=== PATIENT | female | born 1940 | race Caucasian/White ===

== ENCOUNTER 2017-02-26 22:12 | Inpatient (IN) | payer MEDICARE, BC ==
[~2017-02-26] VITALS: Ht 177.8 cm; Wt 110.9 kg
[~2017-02-26 22:12] MED LIST: BROV15NE NEB; BUDE0.25 NEB; CALC1TAB12 PO; CYAN1TAB24 PO; GABA300C5 PO; ONCETAB7 PO; SIMV80TA PO; TYLETAB34 PO; XARE20TA PO
[2017-02-27] VITALS (8 sets, daily range): BP systolic 96–152; BP diastolic 66–94; PULSE 93–121; RESP 18–22; TEMP 96.1–101.3; O2SAT 93–97
[2017-02-27] MEDS ORDERED: BISACODYL 10 MG SUPP RECTAL PRN (01:15)
[2017-02-27] MEDS ORDERED: MAGNESIUM HYDROXIDE SUSP 30 ML CUP PO PRN (01:15)
[2017-02-27] MEDS ORDERED: NALOXONE HCL 0.4 MG/ML AMP IV PRN (01:15)
[2017-02-27] MEDS ORDERED: ONDANSETRON HCL 4 MG/2 ML VIAL IVP PRN (01:15)
[2017-02-27] MEDS ORDERED: SENNOSIDES 8.6 MG TAB PO PRN (01:15)
[2017-02-27] MEDS ORDERED: SODIUM CHLORIDE 0.9% FLUSH 10 ML FLUSH IV FLUSH PRN (01:15)
[2017-02-27] MEDS ORDERED: RESP: ALBUTEROL 2.5 MG/IPRATROPIUM 0.5 MG NEB (PRN) NEB (01:45)
[2017-02-27] MEDS: ACETAMINOPHEN 325 MG TAB PO PRN ×2 (03:27→16:59)
[2017-02-27 07:23] LABS: AUTOMATED NEUTROPHIL # 5.6 TH/MM3 (1.8-7.7); BASOPHIL % 0.3 % (0.0-2.0); EOSINOPHIL # 0.1 TH/MM3 (0-0.4); EOSINOPHIL % 1.5 % (0.0-4.0); HEMATOCRIT 34.1 % (35.0-46.0); HEMO FLAGS DIFF FINAL; LYMPHOCYTE # 0.7 TH/MM3 (1.0-4.8); MEAN CORPUSCULAR HEMOGLOBIN 30.4 PG (27.0-34.0); MEAN CORPUSCULAR HGB CONC 34.9 % (32.0-36.0); MONO % 3.4 % (0.0-8.0); NEUT % 84.8 % (16.0-70.0); PLATELET COUNT 155 TH/MM3 (150-450); RED BLOOD COUNT 3.91 MIL/MM3 (4.00-5.30); RED CELL DISTRIBUTION WIDTH 15.2 % (11.6-17.2); WHITE BLOOD COUNT 6.6 TH/MM3 (4.0-11.0)
[2017-02-27 07:33] LABS: POTASSIUM 3.8 MEQ/L (3.5-5.1)
[2017-02-27 07:37] LABS: BICARBONATE 23.1 MEQ/L (21.0-32.0)
[2017-02-27] MEDS ORDERED: ACETAMINOPHEN/CODEINE 300 MG/30 MG TAB PO PRN (08:00)
--- NOTE | 2017-02-27 08:18 | HHI.HP ---
[facility] Primary [facility] Physician No Primary Care Physician Admission Diagnosis Generalized weakness Diagnoses: (1) Dehydration (2) COPD (chronic obstructive pulmonary disease) (3) Generalized weakness (4) Hyperlipidemia (5) Acute kidney injury (6) Fever Chief Complaint: Weakness Travel History International Travel<30 Days: No Contact w/Intl Traveler <30 Da: No History of Present Illness The patient is a 76-year-old female who presented to the emergency department with complaint of generalized weakness. She states that she went to the bathroom yesterday, but was not able to get up off the toilet because she felt so weak. Her [id number] helped her up and called paramedics. The patient has COPD and reports chronic dyspnea, but no worse recently. She has cough that is minimally productive. She had fever overnight with night sweats, but feels much better this morning. She denies chest pain. She had an episode of nausea yesterday, but that has resolved. No diarrhea or constipation. She denies dysuria. She reportedly has had multiple hospital admissions and ER visits in the past few months. She reports having extensive workup in December including a brain biopsy. Those records are not available at this time. Review of Systems Constitutional: DENIES: Fever, Chills, Night Sweats Eyes: DENIES: Blurred vision, Vision loss Ears, nose, mouth, throat: DENIES: Hearing loss Respiratory: COMPLAINS OF: Cough, Sputum production, Shortness of breath, DENIES: Wheezing Cardiovascular: DENIES: Chest pain, Palpitations, Dyspnea on Exertion, Lower Extremity Edema Gastrointestinal: DENIES: Abdominal pain, Constipation, Diarrhea, Nausea, Vomiting Genitourinary: DENIES: Urinary frequency, Urinary incontinence, Urgency, Hematuria, Dysuria, Nocturia Musculoskeletal: DENIES: Joint pain, Muscle aches Integumentary: DENIES: Pruritus, Rash Hematologic/lymphatic: DENIES: Bruising Neurologic: DENIES: Headache Past Family Social History Past Medical History History breast cancer History of renal cancer History of lung cancer Hyperlipidemia COPD History of DVT, ?PE Past Surgical History Partial lobectomy of the left lung Right nephrectomy Hysterectomy Appendectomy Tonsillectomy Bilateral breast surgery for cancer in the 1970s Reported Medications Xarelto 20 mg daily Gabapentin 300 mg twice a day Brovana twice a day Budesonide nebulizer twice a day Simvastatin 80 mg daily Multivitamin daily Tylenol with codeine daily as needed Calcium plus vitamin D daily Vitamin B12 daily Allergies: Coded Allergies: Penicillin (Verified Allergy, Severe, Hives, 02/26/17) Family History Breast cancer Heart disease Social History Patient quit smoking 6 years ago. Rarely drinks alcohol. Denies illicit drug use. Physical Exam Vital Signs Vital Signs Date Time Temp Pulse Resp B/P Pulse Ox O2 Delivery O2 Flow Rate FiO2 02/27/17 04:21 101.3 93 18 126/74 94 02/27/17 02:52 Nasal Cannula 3.00 02/27/17 01:00 99.0 18 122/77 94 Physical Exam GENERAL: Obese elderly female in no acute distress. Sitting up in a chair. HEENT: Normocephalic, atraumatic. Pupils equal, round and reactive. Extraocular movements intact. No scleral icterus. No injection or drainage. Oropharynx is clear. Mucous membranes are moist. CARDIOVASCULAR: Regular rate and rhythm without murmurs, gallops, or rubs. RESPIRATORY: Scattered wheeze. Breathing is non-labored. GASTROINTESTINAL: Abdomen soft, non-tender, nondistended. EXTREMITIES: Trace bilateral lower extremity edema. No calf tenderness. PSYCH: Alert and oriented x 3. Laboratory Laboratory Tests Test 02/27/17 07:11 White Blood Count 6.6 Red Blood Count 3.91 Hemoglobin 11.9 Hematocrit 34.1 Mean Corpuscular Volume 87.0 Mean Corpuscular Hemoglobin 30.4 Mean Corpuscular Hemoglobin 34.9 Concent Red Cell Distribution Width 15.2 Platelet Count 155 Mean Platelet Volume 6.2 Neutrophils (%) (Auto) 84.8 Lymphocytes (%) (Auto) 10.0 Monocytes (%) (Auto) 3.4 Eosinophils (%) (Auto) 1.5 Basophils (%) (Auto) 0.3 Neutrophils # (Auto) 5.6 Lymphocytes # (Auto) 0.7 Monocytes # (Auto) 0.2 Eosinophils # (Auto) 0.1 Basophils # (Auto) 0.0 CBC Comment DIFF FINAL Differential Comment Sodium Level 142 Potassium Level 3.8 Chloride Level 109 Carbon Dioxide Level 23.1 Anion Gap 10 Blood Urea Nitrogen 17 Creatinine 1.10 Estimat Glomerular Filtration 48 Rate Random Glucose 86 Calcium Level 8.4 Result Diagram: 02/27/17 0711 02/27/17 0711 Assessment and Plan Assessment and Plan 1. Generalized weakness: The patient states that she has become more weak over the past few days, but feels better this morning. PT eval requested. 2. Fever: Uncertain etiology. ?UTI. Urine culture is pending. Patient is afebrile at this time. CXR without apparent pneumonia. 3. Hyperlipidemia: Continue statin. 4. COPD: Not currently in exacerbation. Continue supplemental oxygen. Continue home medications. Albuterol nebs as needed. 5. History of DVT: Continue Xarelto. 6. Acute kidney injury: Secondary to dehydration. Improving. Continue IV fluids. To Mckinney MD Feb 27, 2017 08:17
[2017-02-27] MEDS ORDERED: ARFORMOTEROL INH SCH (09:00)
[2017-02-27] MEDS: CYANOCOBALAMIN 1,000 MCG TAB PO SCH (09:00)
[2017-02-27] MEDS ORDERED: RESP: ALBUTEROL 2.5 MG/3 ML NEB (PRN) NEB (09:00)
[2017-02-27] MEDS: RESP: BUDESONIDE 0.25 MG/2 ML NEB NEB SCH ×2 (09:19→19:22)
[2017-02-27] MEDS: DOCUSATE SODIUM 50 MG/SENNA 8.6 MG TAB PO SCH ×2 (09:48→20:41)
[2017-02-27] MEDS: PRAVASTATIN SOD 80 MG TAB PO SCH (09:48)
[2017-02-27] MEDS: GABAPENTIN 300 MG CAP PO SCH ×2 (09:48→20:42)
[2017-02-27] MEDS: MULTIVITAMIN TAB PO SCH (09:49)
[2017-02-27] MEDS: CALCIUM/VITAMIN D 250 MG/125 U TAB PO SCH (09:49)
[2017-02-27] MEDS: NS + KCL 20 MEQ INJ 1,000 ML IV SCH (09:49)
[2017-02-27] MEDS: RIVAROXABAN 20 MG TAB PO SCH (09:49)
[2017-02-27] MEDS: SODIUM CHLORIDE 0.9% FLUSH 10 ML FLUSH IV FLUSH SCH ×2 (09:49→21:00)
[2017-02-27] MEDS: RESP: ALBUTEROL 2.5 MG/IPRATROPIUM 0.5 MG NEB (SCH) NEB ×2 (12:34→19:22)
[2017-02-27] MEDS ORDERED: SODIUM CHLOR 0.9% 1000 ML INJ 1,000 ML IV ONE (20:15)
[2017-02-27] MEDS: CIPROFLOXACIN 400 MG PREMIX 200 ML IV SCH (21:00)
[2017-02-27 21:08] LABS: LACTIC ACID GHOST NOT REPORTABLE
[2017-02-28] VITALS (16 sets, daily range): BP systolic 90–146; BP diastolic 52–89; PULSE 99–116; RESP 17–22; TEMP 97.3–102.3; O2SAT 91–98
[2017-02-28] MEDS: ACETAMINOPHEN 325 MG TAB PO PRN ×2 (02:12→23:27)
[2017-02-28] MEDS: NS + KCL 20 MEQ INJ 1,000 ML IV SCH ×2 (05:00→20:06)
[2017-02-28] MEDS: RESP: ALBUTEROL 2.5 MG/IPRATROPIUM 0.5 MG NEB (SCH) NEB ×4 (07:28→19:57)
[2017-02-28] MEDS: RESP: BUDESONIDE 0.25 MG/2 ML NEB NEB SCH ×2 (07:35→19:57)
[2017-02-28] MEDS: CYANOCOBALAMIN 1,000 MCG TAB PO SCH (09:00)
[2017-02-28] MEDS: DOCUSATE SODIUM 50 MG/SENNA 8.6 MG TAB PO SCH ×2 (09:00→20:07)
[2017-02-28] MEDS: PRAVASTATIN SOD 80 MG TAB PO SCH (09:48)
[2017-02-28] MEDS: GABAPENTIN 300 MG CAP PO SCH ×2 (09:48→20:07)
[2017-02-28] MEDS: MULTIVITAMIN TAB PO SCH (09:48)
[2017-02-28] MEDS: SODIUM CHLORIDE 0.9% FLUSH 10 ML FLUSH IV FLUSH SCH ×2 (09:48→20:07)
[2017-02-28] MEDS: CALCIUM/VITAMIN D 250 MG/125 U TAB PO SCH (09:48)
[2017-02-28] MEDS: RIVAROXABAN 20 MG TAB PO SCH (09:48)
[2017-02-28] MEDS: CIPROFLOXACIN 400 MG PREMIX 200 ML IV SCH ×2 (09:48→20:47)
--- NOTE | 2017-02-28 10:11 | HHI.PR ---
Subjective Remarks Follow up fever, weakness. Patient states that she feels lousy today. She has been having fever and chills overnight. She woke up "drenched in sweat" this morning. Denies chest pain, dyspnea. Objective Vitals Vital Signs Date Time Temp Pulse Resp B/P Pulse Ox O2 Delivery O2 Flow Rate FiO2 02/28/17 08:00 97.3 109 20 125/87 96 02/28/17 07:40 93 3.00 02/28/17 04:00 98.7 99 18 95/63 93 02/28/17 02:35 110 02/28/17 00:00 99.6 100 18 146/89 95 02/27/17 20:00 97.2 115 18 105/69 94 02/27/17 19:22 93 Nasal Cannula 3.00 02/27/17 18:12 18 02/27/17 16:00 101.2 121 22 111/66 94 02/27/17 12:00 96.1 107 22 152/94 97 I/O 02/27/17 02/27/17 02/27/17 02/28/17 02/28/17 02/28/17 07:00 15:00 23:00 07:00 15:00 23:00 Intake Total 0 ml 750 ml 842 ml 1250 ml Balance 0 ml 750 ml 842 ml 1250 ml Intake Oral 750 ml 240 ml 0 ml IV Total 0 ml 602 ml 1250 ml # Voids 2 4 2 2 1 # Bowel Movements 0 Result Diagram: 02/27/17 0711 02/27/17 0711 Objective Remarks General: Elderly female in no acute distress. Sitting up in a chair. Heart: Tachycardic. Lungs: Scattered wheeze. Breathing is nonlabored. Abdomen: Soft, nontender, nondistended. Extremities: Trace bilateral lower extremity edema. Psych: Alert and oriented. Procedures None Urinary Catheter: No Vascular Central Line Catheter: No A/P Problem List: (1) Dehydration ICD Code: E86.0 Status: Acute (2) COPD (chronic obstructive pulmonary disease) ICD Code: J44.9 Status: Chronic (3) Generalized weakness ICD Code: R53.1 Status: Acute (4) Hyperlipidemia ICD Code: E78.5 Status: Chronic (5) Acute kidney injury ICD Code: N17.9 Status: Acute (6) Fever ICD Code: R50.9 Status: Acute (7) Sepsis ICD Code: A41.9 Status: Acute (8) Lactic acidosis ICD Code: E87.2 Status: Acute Assessment and Plan 1. Generalized weakness: The patient states that she has become more weak over the past few days, but feels better this morning. Continue PT. 2. Sepsis: Source suspected to be UTI vs pulmonary. Urine culture is pending. Patient was febrile overnight and continues to have chills. Check chest CT. Continue antibiotics. Blood cultures are pending. Influenza negative. 3. Hyperlipidemia: Continue statin. 4. COPD: Not currently in exacerbation. Continue supplemental oxygen. Continue home medications. Albuterol nebs as needed. 5. History of DVT: Continue Xarelto. 6. Acute kidney injury: Secondary to dehydration. Labs are pending today. Continue IV fluids. 7. Tachycardia: Patient is consistently with heart rate in 120s. No reported history of cardiac issues, arrhythmia. Check EKG. To Mckinney MD Feb 28, 2017 10:11
[2017-02-28 11:26] LABS: AUTOMATED NEUTROPHIL # 4.5 TH/MM3 (1.8-7.7); BASOPHIL % 0.4 % (0.0-2.0); HEMATOCRIT 30.1 % (35.0-46.0); HEMO FLAGS DIFF FINAL; LYMPH % 6.6 % (9.0-44.0); LYMPHOCYTE # 0.3 TH/MM3 (1.0-4.8); MEAN CELL VOLUME 86.1 FL (80.0-100.0); MEAN CORPUSCULAR HEMOGLOBIN 29.1 PG (27.0-34.0); MEAN CORPUSCULAR HGB CONC 33.8 % (32.0-36.0); PLATELET COUNT 164 TH/MM3 (150-450); RED BLOOD COUNT 3.49 MIL/MM3 (4.00-5.30); RED CELL DISTRIBUTION WIDTH 14.9 % (11.6-17.2); WHITE BLOOD COUNT 4.9 TH/MM3 (4.0-11.0)
[2017-02-28 11:34] LABS: CHLORIDE 108 MEQ/L (98-107); POTASSIUM 3.8 MEQ/L (3.5-5.1); SODIUM (NA) 142 MEQ/L (136-145)
[2017-02-28 11:38] LABS: ANION GAP 12 MEQ/L (5-15); BICARBONATE 22.1 MEQ/L (21.0-32.0); BLOOD UREA NITROGEN 14 MG/DL (7-18); MAGNESIUM 1.9 MG/DL (1.5-2.5)
[2017-02-28 11:41] LABS: ALT (GPT) 21 U/L (10-53); AST (GOT) 21 U/L (15-37); GLOMERULAR FILTRATION RATE 48 ML/MIN (>89)
[2017-02-28 11:43] LABS: TOTAL BILIRUBIN ADULT 0.5 MG/DL (0.2-1.0)
[2017-02-28 11:44] LABS: ALKALINE PHOSPHATASE 50 U/L (45-117)
[2017-02-28 12:08] LABS: CREATINE KINASE 147 U/L (26-192)
[2017-02-28] MEDS ORDERED: CHLORHEXIDINE GLUCONATE 2 % 1 PACK (2 CLOTHS)(extra cloths) TOPICAL PRN (12:15)
[2017-02-28 12:26] LABS: CKMB 0.6 NG/ML (0.5-3.6)
--- NOTE | 2017-02-28 15:37 | PD.CONS ---
HPI Consult Requested By Primary Care Physician No Primary Care Physician History of Present Illness 76 y/o F with PMHx significant for COPD, HLD, breast CA, Lung CA who presented to the emergency department with generalized weakness and fever. She states that she went to the bathroom yesterday, but was not able to get up off the toilet because she felt so weak. She denies chest pain, diarrhea, constipation, dysuria or noncompliance with medications. Cardiology consulted for sinus tachycardia and abnormal EKG. Review of Systems Consitutional: COMPLAINS OF: Fatigue, Fever, DENIES: Chills, Weight gain, Weight loss Eyes: DENIES: Amaurosis Fugax, Change in vision HEENT: DENIES: Lightheadedness, Change in hearing Respiratory: DENIES: See HPI, Cough, Snoring, Shortness of breath, Wheezing, Sputum production Cardiovascular: DENIES: See HPI, Chest pain, Palpitations, Syncope, Tachycardia Gastrointestinal: DENIES: Nausea, Vomiting, Change in bowel habits, Reflux, Bloody stools, Melena Genitourinary: DENIES: Urinary incontinence, Difficulty voiding Neurologic: DENIES: Tingling or numbness, Memory problems, Poor Balance, Stroke symptoms Musculoskeletal: DENIES: Joint pain, Muscle pain, Limited range of motion, Back pain Psychiatric: DENIES: Anxiety, Depression, Sleep disturbances Hematologic: DENIES: Bruising tendencies, Bleeding tendencies Endocrine: DENIES: Weight gain, Weight loss, Thyroid disease Past Family Social History Allergies: Coded Allergies: Penicillin (Verified Allergy, Severe, Hives, 02/26/17) Past Medical History breast cancer renal cancer lung cancer Hyperlipidemia COPD History of DVT, ?PE Past Surgical History Partial lobectomy of the left lung Right nephrectomy Hysterectomy Appendectomy Tonsillectomy Bilateral breast surgery for cancer in the 1970s Reported Medications Reported Meds & Active Scripts Active Reported B12 (Cyanocobalamin) 1,000 Mcg Tab 1 Tab PO DAILY Calcium 500 +D (Calcium Carbonate-Cholecalciferol) 500-400 Mg-Unit Tab 1 Tab PO DAILY Once Daily (Multivitamin) 1 Each Tablet 1 Tab PO DAILY Tylenol-Codeine #3 (Acetaminophen-Codeine) 300-30 mg Tab 1 Tab PO DAILY PRN Budesonide Neb 0.25 Mg/2 Ml Neb 0.25 Mg NEB Q12HR NEB Brovana Neb (Arformoterol Neb) 15 Mcg/2 Ml Vial 1 Nebule NEB BID Maintenance treatment of bronchoconstriction in COPD. Xarelto (Rivaroxaban) 20 Mg Tab 20 Mg PO DAILY Gabapentin 300 Mg Cap 300 Mg PO BID Simvastatin 80 Mg Tab 80 Mg PO DAILY Active Ordered Medications Current Medications Medications (Trade) Dose Ordered Sig/Carlota Route Start Time Stop Time Status Last Admin (NS Flush) 2 ml UNSCH PRN IV FLUSH 02/27/17 01:15 (NS Flush) 2 ml BID IV FLUSH 02/27/17 09:00 02/28/17 09:48 (Tylenol) 650 mg Q4H PRN PO 02/27/17 01:15 02/28/17 02:12 (Zofran Inj) 4 mg Q6H PRN IVP 02/27/17 01:15 (Narcan Inj) 0.4 mg UNSCH PRN IV 02/27/17 01:15 (Gretel-Colace) 1 tab BID PO 02/27/17 09:00 02/27/17 20:41 (Milk Of Magnesia Liq) 30 ml Q12H PRN PO 02/27/17 01:15 (Senokot) 17.2 mg Q12H PRN PO 02/27/17 01:15 (Dulcolax Supp) 10 mg DAILY PRN RECTAL 02/27/17 01:15 (Tylenol-Codeine #3) 1 tab DAILY PRN PO 02/27/17 08:00 (Neurontin) 300 mg BID PO 02/27/17 09:00 02/28/17 09:48 (Xarelto) 20 mg DAILY PO 02/27/17 09:00 02/28/17 09:48 Patient Own Medication ARFORMOTEROL (BROVANA) 1 INH BID BID INH 02/27/17 09:00 Hold (Oscal-D 250-125) 500 mg DAILY PO 02/27/17 09:00 02/28/17 09:48 (Vitamin B12) 1,000 mcg DAILY PO 02/27/17 09:00 02/27/17 09:00 (Theragran) 1 tab DAILY PO 02/27/17 09:00 02/28/17 09:48 Pravastatin Sodium 80 mg 80 mg DAILY PO 02/27/17 09:00 02/28/17 09:48 Potassium Chloride/Sodium Chloride 1,000 ml @ 50 mls/hr Q20H IV 02/27/17 09:00 02/28/17 05:00 (Cipro 400 Mg Premix) 200 ml @ 200 mls/hr Q12H IV 02/27/17 21:00 02/28/17 09:48 Miscellaneous Information Patient in critical care unit? Ass... Q361D .XX 02/28/17 12:15 02/28/17 13:00 (Chlorhexidine 2% Cloth) 3 pack DAILY@04 TOPICAL 03/01/17 04:00 03/05/17 04:01 (Chlorhexidine 2% Cloth) 3 pack UNSCH PRN TOPICAL 02/28/17 12:15 03/05/17 12:01 Physical Exam Vital Signs Vital Signs Date Time Temp Pulse Resp B/P Pulse Ox O2 Delivery O2 Flow Rate FiO2 02/28/17 12:00 101.5 116 17 134/78 95 02/28/17 08:00 97.3 109 20 125/87 96 02/28/17 07:40 93 3.00 02/28/17 04:00 98.7 99 18 95/63 93 02/28/17 02:35 110 02/28/17 00:00 99.6 100 18 146/89 95 02/27/17 20:00 97.2 115 18 105/69 94 02/27/17 19:22 93 Nasal Cannula 3.00 02/27/17 18:12 18 02/27/17 16:00 101.2 121 22 111/66 94 Laboratory Laboratory Tests Test 02/27/17 02/27/17 02/28/17 19:05 21:25 11:10 Lactic Acid Level 4.1 1.7 White Blood Count 4.9 Red Blood Count 3.49 Hemoglobin 10.2 Hematocrit 30.1 Mean Corpuscular Volume 86.1 Mean Corpuscular Hemoglobin 29.1 Mean Corpuscular Hemoglobin 33.8 Concent Red Cell Distribution Width 14.9 Platelet Count 164 Mean Platelet Volume 6.8 Neutrophils (%) (Auto) 90.0 Lymphocytes (%) (Auto) 6.6 Monocytes (%) (Auto) 2.0 Eosinophils (%) (Auto) 1.0 Basophils (%) (Auto) 0.4 Neutrophils # (Auto) 4.5 Lymphocytes # (Auto) 0.3 Monocytes # (Auto) 0.1 Eosinophils # (Auto) 0.0 Basophils # (Auto) 0.0 CBC Comment DIFF FINAL Differential Comment Sodium Level 142 Potassium Level 3.8 Chloride Level 108 Carbon Dioxide Level 22.1 Anion Gap 12 Blood Urea Nitrogen 14 Creatinine 1.10 Estimat Glomerular Filtration 48 Rate Random Glucose 142 Calcium Level 8.2 Magnesium Level 1.9 Total Bilirubin 0.5 Aspartate Amino Transf 21 (AST/SGOT) Alanine Aminotransferase 21 (ALT/SGPT) Alkaline Phosphatase 50 Total Creatine Kinase 147 Creatine Kinase MB 0.6 Troponin I LESS THAN 0.02 Total Protein 5.8 Albumin 2.0 Date/Time Procedure Status Source Growth 02/27/17 17:30 Aerobic Blood Culture - Preliminary Resulted Blood Peripheral NO GROWTH IN 1 DAY 02/27/17 17:30 Anaerobic Blood Culture - Preliminary Resulted Blood Peripheral NO GROWTH IN 1 DAY 02/27/17 10:00 Influenza Types A,B Antigen (АНДРЕЙ) - Final Complete Nasal Aspirate NEGATIVE FOR FLU A AND B ANTIGEN.... Result Diagram: 02/28/17 1110 02/28/17 1110 Assessment and Plan Problem List: (1) Abnormal EKG Assessment and Plan: 76 y/o F with admitted with failure to thrive, fever and tachycardia. No cardiovascular complaints. Sinus Tachycardia likely physiologic response to underlying infection or malignancy. Recommendations: 1. Get 2DEchocardiogram 2. Cont supportive care (2) Failure to thrive in adult (3) Fever (4) Generalized weakness (5) Acute kidney injury (6) COPD (chronic obstructive pulmonary disease) (7) Lactic acidosis (8) Hyperlipidemia Anibal Merrill MD Feb 28, 2017 15:37
[2017-02-28] MEDS ORDERED: VANCOMYCIN INJ 1,000 MG in SODIUM CHLOR 0.9% 250 ML INJ 250 ML IV SCH (15:45)
--- NOTE | 2017-02-28 15:48 | PD.CONS ---
History of Present Illness Service Infectious disease Consult Requested By Dr Mckinney Reason for Consult Sepsis Primary Care Physician No Primary Care Physician Diagnoses: (1) Sepsis (2) Fever History of Present Illness Patient came to the ER because she felt very weak and could not get off the toilet. She came to the ER earlier too and urine culture from that visit is growing bacteria. She had high garde fever with chills . Today she had to be transferred to the ICU because of the fever with chills and hypotension. She has baseline shortness of breath from COPD and also some dry cough. No abdominal pain, Review of Systems Constitutional: COMPLAINS OF: Fatigue, Fever, Chills Endocrine: DENIES: Polydipsia Eyes: DENIES: Diplopia, Vision loss Ears, nose, mouth, throat: DENIES: Nasal discharge, Oral lesions Respiratory: COMPLAINS OF: Shortness of breath, DENIES: Sputum production Cardiovascular: DENIES: Chest pain, Palpitations Gastrointestinal: DENIES: Abdominal pain, Vomiting Genitourinary: DENIES: Dysuria Musculoskeletal: COMPLAINS OF: Joint pain, DENIES: Stiffness Integumentary: DENIES: Abnormal pigmentation, Pruritus Neurologic: DENIES: Headache, Localized weakness Psychiatric: DENIES: Agitation Past Family Social History Allergies: Coded Allergies: Penicillin (Verified Allergy, Severe, Hives, 02/26/17) Past Medical History Past Medical History History breast cancer History of renal cancer History of lung cancer Hyperlipidemia COPD History of DVT, ?PE Past Surgical History Partial lobectomy of the left lung Right nephrectomy Hysterectomy Appendectomy Tonsillectomy Bilateral breast surgery for cancer in the 1970s Reported Medications Xarelto 20 mg daily Gabapentin 300 mg twice a day Brovana twice a day Budesonide nebulizer twice a day Simvastatin 80 mg daily Multivitamin daily Tylenol with codeine daily as needed Calcium plus vitamin D daily Vitamin B12 daily Allergies: Coded Allergies: Penicillin (Verified Allergy, Severe, Hives, 02/26/17) Family History Breast cancer Heart disease Social History Patient quit smoking 6 years ago. Rarely drinks alcohol. Denies illicit drug use. Physical Exam Vital Signs Vital Signs Date Time Temp Pulse Resp B/P Pulse Ox O2 Delivery O2 Flow Rate FiO2 02/28/17 12:00 101.5 116 17 134/78 95 02/28/17 08:00 97.3 109 20 125/87 96 02/28/17 07:40 93 3.00 02/28/17 04:00 98.7 99 18 95/63 93 02/28/17 02:35 110 02/28/17 00:00 99.6 100 18 146/89 95 02/27/17 20:00 97.2 115 18 105/69 94 02/27/17 19:22 93 Nasal Cannula 3.00 02/27/17 18:12 18 02/27/17 16:00 101.2 121 22 111/66 94 Physical Exam GENERAL: This is an obese patient who is febrile SKIN: No rashes, ecchymoses or lesions. Cool and dry. HEAD: Atraumatic. Normocephalic. No temporal or scalp tenderness. EYES: Pupils equal round and reactive. Extraocular motions intact. No scleral icterus. No injection or drainage. ENT: Nose without bleeding, purulent drainage or septal hematoma. Throat without erythema, tonsillar hypertrophy or exudate. Uvula midline. Airway patent. NECK: Trachea midline. No JVD or lymphadenopathy. Supple, nontender, no meningeal signs. CARDIOVASCULAR: Regular rate and rhythm without murmurs, gallops, or rubs. RESPIRATORY: Breath sounds equal bilaterally but diminished. No wheezes, rales, or rhonchi. GASTROINTESTINAL: Abdomen soft, non-tender, nondistended. No hepato-splenomegaly , or palpable masses. No guarding. MUSCULOSKELETAL: Extremities without clubbing, cyanosis, or edema. No joint tenderness, effusion, or edema noted. No calf tenderness. Negative Homans sign bilaterally. NEUROLOGICAL: Awake and alert. Cranial nerves II through XII intact. Motor and sensory grossly within normal limits. Five out of 5 muscle strength in all muscle groups. Normal speech. Laboratory Laboratory Tests Test 02/27/17 02/27/17 02/28/17 19:05 21:25 11:10 Lactic Acid Level 4.1 1.7 White Blood Count 4.9 Red Blood Count 3.49 Hemoglobin 10.2 Hematocrit 30.1 Mean Corpuscular Volume 86.1 Mean Corpuscular Hemoglobin 29.1 Mean Corpuscular Hemoglobin 33.8 Concent Red Cell Distribution Width 14.9 Platelet Count 164 Mean Platelet Volume 6.8 Neutrophils (%) (Auto) 90.0 Lymphocytes (%) (Auto) 6.6 Monocytes (%) (Auto) 2.0 Eosinophils (%) (Auto) 1.0 Basophils (%) (Auto) 0.4 Neutrophils # (Auto) 4.5 Lymphocytes # (Auto) 0.3 Monocytes # (Auto) 0.1 Eosinophils # (Auto) 0.0 Basophils # (Auto) 0.0 CBC Comment DIFF FINAL Differential Comment Sodium Level 142 Potassium Level 3.8 Chloride Level 108 Carbon Dioxide Level 22.1 Anion Gap 12 Blood Urea Nitrogen 14 Creatinine 1.10 Estimat Glomerular Filtration 48 Rate Random Glucose 142 Calcium Level 8.2 Magnesium Level 1.9 Total Bilirubin 0.5 Aspartate Amino Transf 21 (AST/SGOT) Alanine Aminotransferase 21 (ALT/SGPT) Alkaline Phosphatase 50 Total Creatine Kinase 147 Creatine Kinase MB 0.6 Troponin I LESS THAN 0.02 Total Protein 5.8 Albumin 2.0 Date/Time Procedure Status Source Growth 02/27/17 17:30 Aerobic Blood Culture - Preliminary Resulted Blood Peripheral NO GROWTH IN 1 DAY 02/27/17 17:30 Anaerobic Blood Culture - Preliminary Resulted Blood Peripheral NO GROWTH IN 1 DAY 02/27/17 10:00 Influenza Types A,B Antigen (АНДРЕЙ) - Final Complete Nasal Aspirate NEGATIVE FOR FLU A AND B ANTIGEN.... Result Diagram: 02/28/17 1110 02/28/17 1110 Assessment and Plan Problem List: (1) Sepsis Status: Acute Plan: Follow blood and urine culture Possible secondary to UTI Continue IV Cipro Add IV Vancomycin - pharmacy to dose Add Aztreonam 1 g IV q8hrs (2) Acute kidney injury Status: Acute Lluvia Sherwood MD Feb 28, 2017 15:48
[2017-02-28] MEDS ORDERED: IODIXANOL 320 MG/ML 10 ML VIAL (for Rad CT) IV ONE (16:26)
--- NOTE | 2017-02-28 16:30 | RADHPO ---
EXAM DATE/TIME: 02/28/2017 15:48 [facility] COMPARISON: CT ABDOMEN & PELVIS W/O CONTRAST, February 26, 2017, 17:45. INDICATIONS : Recent frontal biopsy. Altered mental status. RADIATION DOSE: 63.83 CTDIvol (mGy) MEDICAL HISTORY : Chronic obstructive pulmonary disease. Carcinoma, lung. Pulmonary embolism. Renal cancer. Anticoagula nt therapy. SURGICAL HISTORY : Mastectomy, bilateral. Right nephrectomy. Left lung lobectomy. Frontal head biopsy six weeks ago. ENCOUNTER: Initial ACUITY: 1 day PAIN SCALE: 0/10 LOCATION: cranial TECHNIQUE: Multiple contiguous axial images were obtained of the head. Using automated exposure control and adj ustment of the mA and/or kV according to patient size, radiation dose was kept as low as reasonably a chievable to obtain optimal diagnostic quality images. FINDINGS: CEREBRUM: The ventricles are normal for age. No evidence of midline shift, mass lesion, hemorrhage or acute in farction. No extra-axial fluid collections are seen. POSTERIOR FOSSA: The cerebellum and brainstem are intact. The 4th ventricle is midline. The cerebellopontine angle i s unremarkable. EXTRACRANIAL: The visualized portion of the orbits is intact. SKULL: There is a meghan hole in the left frontal region. No skull fracture is seen. CONCLUSION: 1. 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 No acute intracranial abnormalit y is identified. Cortes Lopez MD on February 28, 2017 at 16:27 Board Certified Radiologist. This report was verified electronically.
--- NOTE | 2017-02-28 16:36 | RADHPO ---
EXAM DATE/TIME: 02/28/2017 16:01 [facility] COMPARISON: CT BRAIN W/O CONTRAST, February 28, 2017, 15:48. INDICATIONS : Short of breath. Evaluate for embolism. IV CONTRAST: 50 cc Visipaque (iodixanol) IV RADIATION DOSE: 19.94 CTDIvol (mGy) MEDICAL HISTORY : Chronic obstructive pulmonary disease. Carcinoma, lung. Renal cancer. Anticoagulant therapy. Pulmonar y embolism. SURGICAL HISTORY : Mastectomy, bilateral. Left upper lung lobectomy. Right nephrectomy. ENCOUNTER: Initial ACUITY: 1 day PAIN SCALE: 0/10 LOCATION: chest TECHNIQUE: Volumetric scanning of the chest was performed using a pulmonary embolism protocol MIP images were re constructed. Using automated exposure control and adjustment of the mA and/or kV according to patien t size, radiation dose was kept as low as reasonably achievable to obtain optimal diagnostic quality images. FINDINGS: The examination of good diagnostic quality. No pulmonary embolus is identified. The heart is at the upper limits of normal in size. There is atherosclerotic plaquing and coronary ar teries. Note is made of a partially calcified 2.3 x 2.0 cm lymph node in the right superhilar region. No othe r adenopathy is seen. There is advanced interstitial fibrotic change throughout both lungs. There is advanced fibrotic castellanos ge in infiltrate throughout the right upper lobe. No significant pleural effusion is identified. The limited portions of upper abdomen visualized demonstrate a 2.6 cm cyst within the liver. CONCLUSION: 1. No pulmonary embolus identified. 2. 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 3. Diffuse interstitial fibrotic change with extensive opacification of the right upper lobe. Cortes Lopez MD on February 28, 2017 at 16:28 Board Certified Radiologist. This report was verified electronically.
[2017-02-28] MEDS ORDERED: Vancomycin Consult Pharmacy 1 EA OTHER SCH (17:00)
[2017-02-28] MEDS: AZTREONAM INJ 1,000 MG in SODIUM CHLORIDE 0.9% INJ 100 ML IV SCH ×2 (18:07→23:25)
[2017-02-28] MEDS: VANCOMYCIN INJ 1,400 MG in SODIUM CHLORID 0.9% 500 ML INJ 500 ML IV SCH (18:26)
[2017-02-28 18:30] LABS: GLUCOSE,URINE NEG (NEG); KETONE, URINE NEG (NEG); NITRITE,URINE NEG (NEG); PH, URINE 5.5 (5.0-8.5)
[2017-02-28 18:31] LABS: BLOOD, URINE MOD (NEG)
[2017-02-28 18:32] LABS: URINE COLOR YELLOW (YELLW/STRAW)
[2017-02-28 18:35] LABS: RBC, URINE 0-3 /hpf (0-3)
[2017-02-28 18:36] LABS: BACTERIA, URINE MANY /hpf; COMMENT (UR) CULTURE INDICATED; CULTURE IF INDICATED CULTURE INDICATED; SQUAMOUS EPITHELIAL CELL URINE 0-5 /hpf (0-5)
[2017-03-01] VITALS (31 sets, daily range): BP systolic 81–148; BP diastolic 44–88; PULSE 86–134; RESP 14–36; TEMP 97.7–103; O2SAT 87–97
[2017-03-01] MEDS: CHLORHEXIDINE GLUCONATE 2 % 1 PACK (2 CLOTHS)(taper/protocol) TOPICAL SCH (04:00)
[2017-03-01] MEDS: ACETAMINOPHEN 325 MG TAB PO PRN ×3 (04:46→18:18)
[2017-03-01 05:12] LABS: AUTOMATED NEUTROPHIL # 3.6 TH/MM3 (1.8-7.7); BASOPHIL % 0.1 % (0.0-2.0); EOSINOPHIL % 1.2 % (0.0-4.0); LYMPH % 11.8 % (9.0-44.0); LYMPHOCYTE # 0.5 TH/MM3 (1.0-4.8); MEAN CORPUSCULAR HEMOGLOBIN 28.7 PG (27.0-34.0); NEUT % 83.9 % (16.0-70.0); PLATELET COUNT 180 TH/MM3 (150-450); RED BLOOD COUNT 3.33 MIL/MM3 (4.00-5.30); RED CELL DISTRIBUTION WIDTH 15.3 % (11.6-17.2); WHITE BLOOD COUNT 4.2 TH/MM3 (4.0-11.0)
[2017-03-01 05:39] LABS: POTASSIUM 3.8 MEQ/L (3.5-5.1)
[2017-03-01 05:42] LABS: BICARBONATE 23.4 MEQ/L (21.0-32.0)
[2017-03-01 05:43] LABS: HEMO FLAGS DIFF FINAL
[2017-03-01] MEDS: RESP: BUDESONIDE 0.25 MG/2 ML NEB NEB SCH ×2 (07:31→19:54)
[2017-03-01] MEDS: RESP: ALBUTEROL 2.5 MG/IPRATROPIUM 0.5 MG NEB (SCH) NEB ×4 (07:31→19:54)
[2017-03-01] MEDS: MULTIVITAMIN TAB PO SCH (08:11)
[2017-03-01] MEDS: CYANOCOBALAMIN 1,000 MCG TAB PO SCH (08:11)
[2017-03-01] MEDS: RIVAROXABAN 20 MG TAB PO SCH (08:11)
[2017-03-01] MEDS: CALCIUM/VITAMIN D 250 MG/125 U TAB PO SCH (08:11)
[2017-03-01] MEDS: GABAPENTIN 300 MG CAP PO SCH ×2 (08:11→20:54)
[2017-03-01] MEDS: AZTREONAM INJ 1,000 MG in SODIUM CHLORIDE 0.9% INJ 100 ML IV SCH ×2 (08:11→15:59)
[2017-03-01] MEDS: PRAVASTATIN SOD 80 MG TAB PO SCH (08:11)
[2017-03-01] MEDS: SODIUM CHLORIDE 0.9% FLUSH 10 ML FLUSH IV FLUSH SCH ×2 (08:12→20:55)
[2017-03-01] MEDS: DOCUSATE SODIUM 50 MG/SENNA 8.6 MG TAB PO SCH ×2 (09:00→20:55)
[2017-03-01] MEDS: CIPROFLOXACIN 400 MG PREMIX 200 ML IV SCH ×2 (09:11→20:55)
--- NOTE | 2017-03-01 12:37 | HHI.PR ---
Subjective Remarks Follow-up sepsis/UTI/tachycardia 03/01/17-patient seen and examined, continue to spike fevers and complains of chills however denies any chest pain. Objective Vitals Vital Signs Date Time Temp Pulse Resp B/P Pulse Ox O2 Delivery O2 Flow Rate FiO2 03/01/17 12:00 100.4 134 19 139/66 91 03/01/17 11:00 103.0 122 14 144/77 90 03/01/17 10:00 116 17 136/71 94 03/01/17 09:00 128 36 133/71 03/01/17 08:00 120 26 91/63 03/01/17 07:42 102 24 100/67 95 03/01/17 07:32 94 Nasal Cannula 4.00 03/01/17 07:00 98.2 90 14 89/61 95 03/01/17 07:00 90 03/01/17 06:00 86 16 81/56 94 03/01/17 05:00 88 16 102/77 95 03/01/17 04:00 90 14 101/56 94 03/01/17 03:00 98.4 92 19 85/53 92 03/01/17 02:00 96 18 84/52 92 03/01/17 01:00 104 22 90/50 93 03/01/17 00:10 101.4 118 25 87/52 93 02/28/17 23:32 110 02/28/17 23:19 102.3 110 21 102/57 92 02/28/17 23:02 110 22 90/52 91 02/28/17 22:00 110 19 96/56 93 02/28/17 21:00 112 19 97/54 93 02/28/17 20:00 100.1 114 20 131/72 92 02/28/17 19:57 94 Nasal Cannula 3.00 02/28/17 19:00 110 20 118/71 95 02/28/17 16:00 99.5 109 18 131/75 98 02/28/17 15:00 111 I/O 02/28/17 02/28/17 02/28/17 03/01/17 03/01/17 03/01/17 07:00 15:00 23:00 07:00 15:00 23:00 Intake Total 1250 ml 50 ml 2000 ml Output Total 1750 ml Balance 1250 ml 50 ml 250 ml Intake Oral 0 ml 0 ml 500 ml IV Total 1250 ml 50 ml 1500 ml Output Urine Total 1750 ml # Voids 2 4 # Bowel Movements 3 0 Result Diagram: 03/01/17 0447 03/01/17 0447 Imaging Last Impressions Head CT 02/28/17 0000 Signed Impressions: Service Date/Time: Tuesday, February 28, 2017 15:48 - CONCLUSION: 1. 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 No acute intracranial abnormality is identified. Cortes Lopez MD CT Angiography 02/28/17 0000 Signed Impressions: Service Date/Time: Tuesday, February 28, 2017 16:01 - CONCLUSION: 1. No pulmonary embolus identified. 2. 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 3. Diffuse interstitial fibrotic change with extensive opacification of the right upper lobe. Cortes Lopez MD Objective Remarks GENERAL: NAD SKIN: Warm and dry. HEAD: Normocephalic. EYES: No scleral icterus. No injection or drainage. NECK: Supple, trachea midline. No JVD or lymphadenopathy. CARDIOVASCULAR: Regular rate and rhythm without murmurs, gallops, or rubs. RESPIRATORY: Breath sounds equal bilaterally. No accessory muscle use. GASTROINTESTINAL: Abdomen soft, non-tender, nondistended. MUSCULOSKELETAL: No cyanosis, or edema. BACK: Nontender without obvious deformity. No CVA tenderness. Procedures None A/P Problem List: (1) Sepsis ICD Code: A41.9 Status: Acute (2) Dehydration ICD Code: E86.0 Status: Acute (3) COPD (chronic obstructive pulmonary disease) ICD Code: J44.9 Status: Chronic (4) Generalized weakness ICD Code: R53.1 Status: Acute (5) Hyperlipidemia ICD Code: E78.5 Status: Chronic (6) Acute kidney injury ICD Code: N17.9 Status: Acute (7) Fever ICD Code: R50.9 Status: Acute (8) Lactic acidosis ICD Code: E87.2 Status: Acute (9) UTI (urinary tract infection) ICD Code: N39.0 Status: Acute (10) Abnormal EKG ICD Code: R94.31 Status: Acute Assessment and Plan 76-year-old female with 1. Sepsis: Source suspected to be UTI vs pulmonary. Currently on Azactam, vancomycin and Cipro per infectious disease specialist pending blood and urine culture 2. UTI: Continue with above antibiotics pending urine culture 3. Febrile episode: Secondary to above infectious processes 4. Tachycardia: Secondary to abnormal EKG, cardiology was consulted. Likely secondary to above infectious processes CTA ruled out PE 5. Hyperlipidemia: Continue statin. 6. COPD: Not currently in exacerbation. Continue supplemental oxygen. Continue home medications. Albuterol nebs as needed. 7. History of DVT: Continue Xarelto. 8. Acute kidney injury: Secondary to dehydration. Continue IV fluids. Total critical care time spent 33 minutes David Casey MD Mar 01, 2017 12:37
[2017-03-01] MEDS: VANCOMYCIN INJ 1,400 MG in SODIUM CHLORID 0.9% 500 ML INJ 500 ML IV SCH (12:41)
--- NOTE | 2017-03-01 17:10 | EKG ---
Date Performed: 02/28/2017 Time Performed: 11:07:27 PTAGE: 76 years EKG: SINUS TACHYCARDIA INDETERMINATE AXIS RIGHT BUNDLE BRANCH BLOCK ABNORMAL ECG NO PREVIOUS TRACING DOCTOR: Bettye Benitez Interpretating Date/Time 03/01/2017 17:07:27
[2017-03-01] MEDS: NS + KCL 20 MEQ INJ 1,000 ML IV SCH (18:19)
[2017-03-01 22:11] LABS: BLOOD GAS BASE EXCESS -5.4 mmol/L (-2-2); BLOOD GAS CARBOXYHEMOGLOBIN 1.5 % (0-4); BLOOD GAS HCO3 18 mmol/L (22-26); BLOOD GAS METHEMOGLOBIN 0.7 % (0-2); BLOOD GAS O2 HGB SATURATION 91 % (90-100); BLOOD GAS OXYGEN CONTENT 12.3 Vol % (12.0-20.0); BLOOD GAS PCO2 25 mmHg (38-42); BLOOD GAS PO2 61 mmHg (61-120); BLOOD GAS TOTAL HGB 9.6 G/DL (12.0-16.0)
[2017-03-01 22:12] LABS: CRITICAL VALUE NO; DRAW SITE RT RADIAL; FIO2 50 %; NUMBER OF ARTERIAL PUNCTURES 1; OXYGEN DEVICE Venti Mask; STAT YES; ULNAR PULSE Y
[2017-03-01 22:13] LABS: AUTOMATED NEUTROPHIL # 4.8 TH/MM3 (1.8-7.7); BASOPHIL % 0.3 % (0.0-2.0); EOSINOPHIL % 0.3 % (0.0-4.0); HEMATOCRIT 24.2 % (35.0-46.0); HEMO FLAGS DIFF FINAL; LYMPH % 7.3 % (9.0-44.0); LYMPHOCYTE # 0.4 TH/MM3 (1.0-4.8); MEAN CELL VOLUME 86.6 FL (80.0-100.0); MEAN CORPUSCULAR HEMOGLOBIN 30.4 PG (27.0-34.0); MEAN CORPUSCULAR HGB CONC 35.2 % (32.0-36.0); MONO % 1.2 % (0.0-8.0); NEUT % 90.9 % (16.0-70.0); PLATELET COUNT 173 TH/MM3 (150-450); RED CELL DISTRIBUTION WIDTH 15.1 % (11.6-17.2); WHITE BLOOD COUNT 5.3 TH/MM3 (4.0-11.0)
[2017-03-01 22:30] LABS: CHLORIDE 108 MEQ/L (98-107); POTASSIUM 3.6 MEQ/L (3.5-5.1); SODIUM (NA) 140 MEQ/L (136-145)
[2017-03-01 22:34] LABS: ANION GAP 11 MEQ/L (5-15); BICARBONATE 20.6 MEQ/L (21.0-32.0); BLOOD UREA NITROGEN 15 MG/DL (7-18); MAGNESIUM 1.6 MG/DL (1.5-2.5)
[2017-03-01 22:37] LABS: ALT (GPT) 24 U/L (10-53); AST (GOT) 36 U/L (15-37); GLOMERULAR FILTRATION RATE 40 ML/MIN (>89)
[2017-03-01 22:39] LABS: TOTAL BILIRUBIN ADULT 0.3 MG/DL (0.2-1.0)
[2017-03-01 22:40] LABS: ALKALINE PHOSPHATASE 65 U/L (45-117)
--- NOTE | 2017-03-01 22:40 | RADHPO ---
EXAM DATE/TIME: 03/01/2017 21:58 [facility] COMPARISON: CHEST SINGLE AP, February 26, 2017, 17:48. CT PULMONARY ANGIOGRAM, February 28, 2017, 16:01. INDICATIONS : Short of breath. MEDICAL HISTORY : Chronic obstructive pulmonary disease. Carcinoma, lung. Renal cancer. SURGICAL HISTORY : Mastectomy, bilateral. Left upper lung lobectomy. ENCOUNTER: Initial ACUITY: 2 days PAIN SCORE: 0/10 LOCATION: Bilateral chest FINDINGS: Increased air space disease since February 26 bilaterally. Underlying interstitial lung disease as well. No significant effusion. No pneumothorax. Heart size within normal limits. No pneumothorax. CONCLUSION: 1. Increased airspace disease bilaterally since February 26. Differential diagnosis includes edema and in fection. There is also underlying interstitial lung disease and possibly pulmonary fibrosis. Aurelio Aceves MD on March 01, 2017 at 22:37 Board Certified Radiologist. This report was verified electronically.
[2017-03-01] MEDS ORDERED: FUROSEMIDE 20 MG/2 ML VIAL IV PUSH PRN (23:30)
[2017-03-02] VITALS (43 sets, daily range): BP systolic 75–145; BP diastolic 51–85; PULSE 102–134; RESP 12–30; TEMP 98–103; O2SAT 82–97
[2017-03-02] MEDS: AZTREONAM INJ 1,000 MG in SODIUM CHLORIDE 0.9% INJ 100 ML IV SCH ×4 (00:15→23:21)
[2017-03-02] MEDS: CHLORHEXIDINE GLUCONATE 2 % 1 PACK (2 CLOTHS)(taper/protocol) TOPICAL SCH ×2 (00:16→23:33)
[2017-03-02] MEDS: ACETAMINOPHEN 325 MG TAB PO PRN ×2 (01:48→23:19)
[2017-03-02 05:39] LABS: AUTOMATED NEUTROPHIL # 4.9 TH/MM3 (1.8-7.7); BASOPHIL % 0.2 % (0.0-2.0); EOSINOPHIL # 0.1 TH/MM3 (0-0.4); EOSINOPHIL % 1.2 % (0.0-4.0); HEMATOCRIT 29.5 % (35.0-46.0); LYMPH % 8.1 % (9.0-44.0); LYMPHOCYTE # 0.4 TH/MM3 (1.0-4.8); MEAN CORPUSCULAR HEMOGLOBIN 29.1 PG (27.0-34.0); MEAN CORPUSCULAR HGB CONC 33.1 % (32.0-36.0); MONO % 1.1 % (0.0-8.0); NEUT % 89.4 % (16.0-70.0); PLATELET COUNT 189 TH/MM3 (150-450); RED BLOOD COUNT 3.35 MIL/MM3 (4.00-5.30); RED CELL DISTRIBUTION WIDTH 15.1 % (11.6-17.2); WHITE BLOOD COUNT 5.5 TH/MM3 (4.0-11.0)
[2017-03-02 06:02] LABS: HEMO FLAGS DIFF FINAL
[2017-03-02 06:07] LABS: POTASSIUM 3.9 MEQ/L (3.5-5.1)
[2017-03-02 06:10] LABS: BICARBONATE 21.5 MEQ/L (21.0-32.0)
[2017-03-02] MEDS: VANCOMYCIN INJ 1,400 MG in SODIUM CHLORID 0.9% 500 ML INJ 500 ML IV SCH ×2 (06:28→23:33)
[2017-03-02] MEDS: RESP: ALBUTEROL 2.5 MG/IPRATROPIUM 0.5 MG NEB (SCH) NEB ×4 (07:26→19:48)
[2017-03-02] MEDS: RESP: BUDESONIDE 0.25 MG/2 ML NEB NEB SCH ×2 (07:26→19:48)
[2017-03-02] MEDS: CYANOCOBALAMIN 1,000 MCG TAB PO SCH (08:29)
[2017-03-02] MEDS: GABAPENTIN 300 MG CAP PO SCH ×2 (08:30→20:50)
[2017-03-02] MEDS: DOCUSATE SODIUM 50 MG/SENNA 8.6 MG TAB PO SCH ×2 (08:30→21:00)
[2017-03-02] MEDS: PRAVASTATIN SOD 80 MG TAB PO SCH (08:30)
[2017-03-02] MEDS: RIVAROXABAN 20 MG TAB PO SCH (08:30)
[2017-03-02] MEDS: CALCIUM/VITAMIN D 250 MG/125 U TAB PO SCH (08:30)
[2017-03-02] MEDS: MULTIVITAMIN TAB PO SCH (08:30)
[2017-03-02] MEDS: SODIUM CHLORIDE 0.9% FLUSH 10 ML FLUSH IV FLUSH SCH ×2 (08:45→21:21)
[2017-03-02] MEDS: CIPROFLOXACIN 400 MG PREMIX 200 ML IV SCH (08:46)
--- NOTE | 2017-03-02 10:06 | HHI.PR ---
Subjective Remarks Follow-up sepsis/UTI/tachycardia and now respiratory failure 03/01/17-patient seen and examined, continue to spike fevers and complains of chills however denies any chest pain. 03/02/17-patient seen and examined, currently on Ventimask and complaining of shortness of breath. Still Spiking fever overnight Objective Vitals Vital Signs Date Time Temp Pulse Resp B/P Pulse Ox O2 Delivery O2 Flow Rate FiO2 03/02/17 09:15 95 Partial Non-Rebreather 12.00 60 03/02/17 09:10 124 12 95 03/02/17 09:01 128 13 113/65 90 03/02/17 09:00 90 Venturi Mask 6.00 50 03/02/17 08:31 134 22 145/64 91 03/02/17 08:00 91 Nasal Cannula 6.00 Humidified 03/02/17 07:31 98.7 108 12 128/75 95 03/02/17 07:30 91 Venturi Mask 50 03/02/17 07:01 104 12 125/73 91 03/02/17 06:31 104 14 125/72 91 03/02/17 06:30 92 Venturi Mask 7.00 50 03/02/17 06:15 97 Partial Non-Rebreather 12.00 60 03/02/17 06:01 104 24 104/70 97 03/02/17 05:01 104 20 98/64 94 03/02/17 04:08 93 Partial Non-Rebreather 12.00 60 03/02/17 04:01 100.9 110 24 93/51 93 03/02/17 03:30 112 20 105/52 93 03/02/17 03:15 114 24 95/58 95 03/02/17 03:00 101.9 114 21 97/57 95 03/02/17 02:30 102.4 120 22 104/57 94 03/02/17 02:15 102.8 122 23 118/70 93 03/02/17 02:00 103.0 03/02/17 02:00 103.0 122 17 141/75 93 03/02/17 01:50 102.8 124 15 125/85 92 03/02/17 01:49 102.8 124 14 125/85 93 03/02/17 01:00 112 19 127/70 92 03/02/17 00:11 94 Partial Non-Rebreather 12.00 60 03/02/17 00:00 98.7 110 12 128/68 94 03/01/17 23:55 92 Partial Non-Rebreather 12.00 60 03/01/17 23:45 89 Venturi Mask 7.00 50 03/01/17 23:05 111 03/01/17 23:00 112 21 98/56 97 03/01/17 23:00 97 Partial Non-Rebreather 12.00 60 03/01/17 22:46 90 Partial Non-Rebreather 12.00 60 03/01/17 22:41 111 20 96 03/01/17 22:15 96 Partial Rebreather 12.00 03/01/17 22:00 116 19 104/51 88 03/01/17 21:29 97.7 03/01/17 21:00 90 Venturi Mask 7.00 50 03/01/17 21:00 122 21 93/50 90 03/01/17 20:20 91 Venturi Mask 50 03/01/17 20:20 88 Venturi Mask 7.00 50 03/01/17 20:00 101.7 120 16 85/44 90 03/01/17 19:20 90 Nasal Cannula 6.00 03/01/17 19:00 88 Nasal Cannula 4.00 03/01/17 19:00 101.9 124 26 124/77 87 03/01/17 18:00 100.7 120 19 148/88 89 03/01/17 17:00 126 25 118/67 89 03/01/17 16:00 98.4 124 21 127/63 90 03/01/17 15:00 116 03/01/17 15:00 116 17 106/58 90 03/01/17 14:00 98.8 124 16 92/59 03/01/17 13:00 126 23 107/57 91 03/01/17 12:01 19 03/01/17 12:00 100.4 134 19 139/66 91 03/01/17 11:00 103.0 122 14 144/77 90 I/O 03/01/17 03/01/17 03/01/17 03/02/17 03/02/17 03/02/17 07:00 15:00 23:00 07:00 15:00 23:00 Intake Total 2000 ml 1002 ml 1155 ml 900 ml Output Total 1750 ml 450 ml 1100 ml 1050 ml Balance 250 ml 552 ml 55 ml -150 ml Intake Oral 500 ml 240 ml 240 ml 100 ml IV Total 1500 ml 762 ml 915 ml 450 ml Packed Cells 350 ml Output Urine Total 1750 ml 450 ml 1100 ml 1050 ml # Bowel Movements 0 0 2 0 Result Diagram: 03/02/17 0530 03/02/17 0530 Imaging Last Impressions Chest X-Ray 03/01/17 0000 Signed Impressions: Service Date/Time: Wednesday, March 01, 2017 21:58 - CONCLUSION: 1. Increased airspace disease bilaterally since February 26. Differential diagnosis includes edema and infection. There is also underlying interstitial lung disease and possibly pulmonary fibrosis. Aurelio Aceves MD Head CT 02/28/17 0000 Signed Impressions: Service Date/Time: Tuesday, February 28, 2017 15:48 - CONCLUSION: 1. 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 No acute intracranial abnormality is identified. Cortes Lopez MD CT Angiography 02/28/17 0000 Signed Impressions: Service Date/Time: Tuesday, February 28, 2017 16:01 - CONCLUSION: 1. No pulmonary embolus identified. 2. 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 3. Diffuse interstitial fibrotic change with extensive opacification of the right upper lobe. Cortes Lopez MD Objective Remarks GENERAL: NAD SKIN: Warm and dry. HEAD: Normocephalic. EYES: No scleral icterus. No injection or drainage. NECK: Supple, trachea midline. No JVD or lymphadenopathy. CARDIOVASCULAR: Regular rate and rhythm without murmurs, gallops, or rubs. RESPIRATORY: Breath sounds decrease bilaterally. + accessory muscle use. GASTROINTESTINAL: Abdomen soft, non-tender, nondistended. MUSCULOSKELETAL: No cyanosis, or edema. BACK: Nontender without obvious deformity. No CVA tenderness. Procedures None A/P Problem List: (1) Sepsis ICD Code: A41.9 Status: Acute (2) Dehydration ICD Code: E86.0 Status: Acute (3) COPD (chronic obstructive pulmonary disease) ICD Code: J44.9 Status: Chronic (4) Generalized weakness ICD Code: R53.1 Status: Acute (5) Hyperlipidemia ICD Code: E78.5 Status: Chronic (6) Acute kidney injury ICD Code: N17.9 Status: Acute (7) Fever ICD Code: R50.9 Status: Acute (8) Lactic acidosis ICD Code: E87.2 Status: Acute (9) UTI (urinary tract infection) ICD Code: N39.0 Status: Acute (10) Abnormal EKG ICD Code: R94.31 Status: Acute (11) Respiratory failure with hypoxia ICD Code: J96.91 Status: Acute Assessment and Plan 76-year-old female with 1. Sepsis: Source suspected to be UTI vs pulmonary. Currently on Azactam, vancomycin and Cipro per infectious disease specialist pending blood and urine culture 2. UTI: Continue with above antibiotics pending urine culture 3. Febrile episode: Secondary to above infectious processes 4. Tachycardia: Secondary to abnormal EKG, cardiology was consulted. Likely secondary to above infectious processes CTA ruled out PE 5. Hyperlipidemia: Continue statin. 6. COPD: Not currently in exacerbation. Continue supplemental oxygen. Continue home medications. Albuterol nebs as needed. 7. History of DVT: Continue Xarelto. 8. Acute kidney injury: Secondary to dehydration. Continue IV fluids. 9. Respiratory failure with hypoxia: ABG overnight noted, chest x-ray noted and reviewed by me. Start Solu-Medrol 20 mg IV every 12 hours, bronchodilators, maintain oxygen saturation above 90%. BiPAP when necessary and consult pulmonary medicine Total critical care time spent 32 minutes David Casey MD Mar 02, 2017 10:06
[2017-03-02] MEDS: methylPREDNISolone SOD SUCC 40 MG/1 ML VIAL IV PUSH SCH ×2 (11:59→21:20)
[2017-03-02] MEDS ORDERED: ACETAMINOPHEN 650 MG SUPP RECTAL PRN (15:00)
[2017-03-02] MEDS: NS + KCL 20 MEQ INJ 1,000 ML IV SCH (17:22)
--- NOTE | 2017-03-02 21:06 | MB ---
cc: AMADOU JENNINGS DATE OF CONSULTATION 03/02/17 REASON FOR CONSULTATION Respiratory failure and pneumonia. PRESENT ILLNESS This is a 76-year-old white female who was initially admitted with weakness and shortness of breath, has a prior history of COPD and is chronically dyspneic. She was initially running some fevers and sweats and cough with expectoration and was brought to the emergency room on 02/27 and thus admitted and has been started on IV antibiotic therapy which included Azactam and vancomycin. The patient had a CT of the chest done following admission and the CT angiogram showed no evidence of pulmonary emboli but showed a partially calcified mass in the left hilum and diffuse fibrotic changes and opacification of the right upper lobe. She is presently on a partial non-rebreather mask and her sats are 94%. The patient denies chest pain. Denies hemoptysis. She is having some low grade fevers. She has no leg or calf muscle pains. PAST HISTORY Includes history of bilateral breast cancer and a history for right renal cancer with nephrectomy and a history for left lung cancer status post chemotherapy. The patient also had a hysterectomy, appendectomy and tonsillectomy in the past. She has history of hypertension and COPD. The patient has had bilateral breast lumpectomy for cancer. MEDICATIONS List included: 1. Gabapentin 300 milligrams b.i.d. 2. Brovana nebs b.i.d. 3. Budesonide 0.5 milligrams nebs b.i.d. 4. Xarelto 20 milligrams a day. 5. Simvastatin 80 milligrams daily. ALLERGIES PENICILLIN. FAMILY HISTORY Significant for carcinoma of the breast. HABITS The patient smoked one to two packs per day for over 50 years, quit 6 years ago. No significant alcohol. REVIEW OF SYSTEMS The patient has gained weight. She has mild leg swelling. She has dizziness. She has postnasal drip. She has wheezing and cough. She has epigastric distress and abdominal cramping. She has no urinary symptoms. No depression or anxiety. PHYSICAL EXAMINATION GENERAL: This moderately obese elderly lady, alert, pale and mildly dyspneic at rest. VITAL SIGNS: Blood pressure 130/70, pulse 94, respirations 22, temperature 99. HEENT: Head normocephalic. Pupils reactive and equal. Tongue is dry. Throat is injected. Nasal mucosae masses. NECK: Supple. No lymphadenopathy. No bruits or thyroid enlargement. CHEST: Distant breath sounds with coarse wheezes throughout both lung oliver with occasional crackles in the right lung oliver. CARDIOVASCULAR: Heart sounds are irregular, S1-S2 with no murmur. No S3. ABDOMEN: Abdomen is soft, benign. No masses or organomegaly or tenderness. Bowel sounds active. EXTREMITIES: Mild peripheral edema with diminished pulses. No calf tenderness. Reflexes are brisk with no gross motor deficits. NEURO: Cranial nerves grossly intact. SKIN: Skin was dry and warm. IMPRESSION 1. COPD with acute exacerbation. 2. Probable pneumonia right upper lobe. 3. Sepsis. PLAN The patient will be placed on DuoNeb solution, nebulizer q.i.d. Continue with antibiotic therapy as ordered by infectious disease including Azactam and vancomycin. Solu-Medrol increased to 40 milligrams IV every 8 hours and O2 will be weaned down to Ventimask at ___% and to a nasal cannula if stable. BiPap to be used at night at 1205 and 35% FIO2. Follow up chest x-ray to be done in the a.m. Sputum sent for Gram stain and culture and further evaluation will depend on the repeat chest x-ray. We will continue with Budesonide nebs and __ nebs twice daily. Thank you Dr. Casey for this consultation. Amadou Jennings MD JSARITA/SELINA /5:44 PM /8:43 PM
[2017-03-02] MEDS ORDERED: IBUPROFEN 400 MG TAB PO PRN (21:30)
[2017-03-02] MEDS: LEVOFLOXACIN 750 MG PREMIX INJ 150 ML IV SCH (21:53)
[2017-03-02] MEDS ORDERED: PHARMACY ORDERED LAB ONE (23:45)
[2017-03-03] VITALS (55 sets, daily range): BP systolic 78–184; BP diastolic 52–109; PULSE 50–152; RESP 15–32; TEMP 97.2–99.2; O2SAT 53–98
[2017-03-03] MEDS: metroNIDAZOLE 500 MG INJ 100 ML IV SCH ×4 (00:07→22:37)
--- NOTE | 2017-03-03 06:05 | RADRPT ---
EXAM DATE/TIME: 03/03/2017 05:48 [facility] COMPARISON: CHEST SINGLE AP, March 01, 2017, 21:58. INDICATIONS : Short of breath. MEDICAL HISTORY : Chronic obstructive pulmonary disease. Carcinoma, lung. Renal cancer. SURGICAL HISTORY : Mastectomy, bilateral. Left upper lung lobectomy. ENCOUNTER: Subsequent ACUITY: 3 days PAIN SCORE: Non-responsive. LOCATION: Bilateral chest FINDINGS: Bilateral airspace opacities are again noted, fairly diffuse on the right and basilar predominant on the left. Left is slightly worse in the interim. Left side surgical changes with mild volume loss aga in noted. No large effusion. No pneumothorax. Heart size stable, upper limits of normal. CONCLUSION: Right greater than left airspace disease. Left consolidation is slightly worse in the interim. Kirby Chadwick MD on March 03, 2017 at 6:02 Board Certified Radiologist. This report was verified electronically.
--- NOTE | 2017-03-03 07:26 | PD.CONS ---
[facility] Service Critical Care Medicine Consult Requested By Dr. Casey Reason for Consult Critical care management Primary Care Physician No Primary Care Physician History of Present Illness 76-year-old female. Date of admission 02/27/2017. Date of consultation 03/03/2017. Past medical history includes underlying emphysema, COPD oxygen dependent, history of pulmonary wasn't on chronic Xarelto, hypertension, dyslipidemia, peripheral neuropathy, history of left upper lobe lobectomy, bilateral mastectomy for breast cancer in her right nephrectomy for kidney cancer. In December, patient had a left frontal meghan hole/skull biopsy. Patient originally presented to [facility] ED after status post fall at home patient difficulty getting up. Daughter activated EMS. She was noted of a UTI and started on antibiotics. She's been seen by Dr. Strickland for abnormal EKG. Troponin 0.02. Recommend echocardiogram. These results are currently pending. A volumetric Presley/infectious disease. Her urine did grow out enterococcus faecalis which she is currently on following a bicycle Levaquin, Azactam, Flagyl and vancomycin.. Also seen in consultation by Dr. Jennings DVT abnormal CTA's 02/28 which revealed right upper lobe opacification/fibrosis, 2.3 x 2 cm left perihilar lymph node in hepatic cyst. Recommend aggressive pulmonary including duo nebs 4 times a day, Pulmicort twice a day and Solu-Medrol 40 IV every 8 hours on BiPAP management. Due to increasing oxygen requirements, we are asked to evaluate the patient. Patient is currently a full code. Review of Systems Constitutional: COMPLAINS OF: Fatigue, Fever, Weight loss, DENIES: Weight gain , Chills, Dizziness Endocrine: COMPLAINS OF: Heat/cold intolerance, DENIES: Polydipsia, Polyuria Eyes: DENIES: Blurred vision, Vision loss Ears, nose, mouth, throat: COMPLAINS OF: Hearing loss, DENIES: Tinnitus, Oral lesions, Throat pain, Toothache Respiratory: COMPLAINS OF: Cough, Sputum production, Shortness of breath, DENIES: Apneas, Hemoptysis Cardiovascular: DENIES: Chest pain Gastrointestinal: DENIES: Abdominal pain Genitourinary: DENIES: Hematuria Musculoskeletal: DENIES: Joint pain Integumentary: DENIES: Rash Hematologic/lymphatic: COMPLAINS OF: Bruising Immunologic/allergic: DENIES: Eczema Neurologic: DENIES: Headache Psychiatric: COMPLAINS OF: Confusion, DENIES: Anxiety Past Family Social History Allergies: Coded Allergies: Penicillin (Verified Allergy, Severe, Hives, 02/26/17) Past Medical History COPD/oxygen dependent History of pulmonary embolism on chronic Xarelto Hypertension Peripheral neuropathy Osteoporosis/osteoarthritis Chronic codeine use Vitamin B12 deficiency History of breast cancer History of renal cancer History of lung cancer Past Surgical History Left frontal meghan hole/biopsy Hysterectomy Right nephrectomy Bilateral mastectomy Appendectomy Left upper lobe lobectomy Tonsillectomy and adenoidectomy Reported Medications Xarelto 20 mg daily Gabapentin 300 mg twice a day Brovana twice a day Budesonide nebulizer twice a day Simvastatin 80 mg daily Multivitamin daily Tylenol with codeine daily as needed Calcium plus vitamin D daily Vitamin B12 daily Active Ordered Medications Reviewed in EMR Family History Positive for breast cancer and heart disease Social History Quit tobacco 6 years ago. 50 pack years. 1-2 alcoholic drinks a year. No IV drug use. Physical Exam Vital Signs Vital Signs Date Time Temp Pulse Resp B/P Pulse Ox O2 Delivery O2 Flow Rate FiO2 03/03/17 06:01 90 19 115/77 92 03/03/17 05:00 84 17 107/78 93 03/03/17 04:10 94 70 03/03/17 04:00 97.2 86 19 114/70 90 03/03/17 04:00 90 Bi-Pap 70 03/03/17 03:40 94 70 03/03/17 03:00 86 17 104/61 92 03/03/17 02:00 94 21 96/65 92 03/03/17 01:30 92 60 03/03/17 01:00 98 17 105/64 92 03/03/17 00:00 92 Bi-Pap 60 03/03/17 00:00 98.2 102 24 113/64 92 03/02/17 23:00 102 03/02/17 23:00 106 23 108/65 91 03/02/17 22:45 94 Non-Rebreather 03/02/17 22:00 108 20 104/64 94 03/02/17 21:00 98.0 114 20 98/58 94 03/02/17 21:00 92 Non-Rebreather 15.00 100 03/02/17 20:00 92 Bi-Pap 60 03/02/17 20:00 99.7 114 27 106/64 91 03/02/17 19:50 93 60 03/02/17 18:00 99.1 120 27 99/55 82 03/02/17 17:20 92 Non-Rebreather 15.00 100 03/02/17 17:00 100.5 109 18 96/66 95 03/02/17 16:01 94 50 03/02/17 16:00 101.8 120 23 99/61 93 03/02/17 16:00 84 Bi-Pap 50 03/02/17 15:00 122 03/02/17 14:59 118 21 98/61 94 03/02/17 14:03 102.9 124 19 101/60 95 03/02/17 13:59 124 19 75/56 94 03/02/17 13:50 95 50 03/02/17 12:59 134 25 116/63 87 03/02/17 12:00 92 Non-Rebreather 15.00 100 03/02/17 11:59 99.2 122 18 109/69 95 03/02/17 11:27 95 Non-Rebreather 15.00 03/02/17 10:59 110 30 102/67 95 03/02/17 10:30 88 Partial Rebreather 15.00 03/02/17 10:00 116 25 99/54 92 03/02/17 09:15 95 Partial Non-Rebreather 12.00 60 03/02/17 09:10 124 12 95 03/02/17 09:01 128 13 113/65 90 03/02/17 09:00 90 Venturi Mask 6.00 50 03/02/17 08:31 134 22 145/64 91 03/02/17 08:00 91 Nasal Cannula 6.00 Humidified 03/02/17 07:31 98.7 108 12 128/75 95 03/02/17 07:30 91 Venturi Mask 50 Physical Exam GENERAL: 76-year-old female, critically ill currently resting in bed on BiPAP SKIN: Warm and dry. We'll perfused HEAD: Atraumatic. Normocephalic. EYES: Pupils equal and round about 3 mm bilaterally and reactive. No scleral icterus. No injection or drainage. ENT: No nasal bleeding or discharge. Mucous membranes pink and moist. NECK: Trachea midline. No JVD. CARDIOVASCULAR: Regular rate and rhythm. S1, S2 no S4. Without murmur RESPIRATORY: Fine crackles appreciated throughout right anterior and posterior lung oliver. Positive and extremity wheezes GASTROINTESTINAL: Abdomen soft, non-tender, nondistended. Hypoactive bowel sounds are appreciated MUSCULOSKELETAL: Extremities without clubbing, cyanosis, or edema. No obvious deformities. NEUROLOGICAL: Awake and alert. No obvious cranial nerve deficits. Motor grossly within normal limits. Five out of 5 muscle strength in the arms and legs. Normal speech. PSYCHIATRIC: Appropriate mood and affect; insight and judgment normal. Laboratory Laboratory Tests Test 03/02/17 03/02/17 21:40 23:25 Erythrocyte Sedimentation Rate GREATER THAN 140 C-Reactive Protein 35.90 Vancomycin Level Trough 11.0 Date/Time Procedure Status Source Growth 03/02/17 21:49 Aerobic Blood Culture Received Blood Peripheral Pending 03/02/17 21:49 Anaerobic Blood Culture Received Blood Peripheral Pending 03/02/17 21:45 Streptococcus pneumoniae Antigen (M Received Urine Clean Catch Pending 03/02/17 21:45 Legionella Antigen Received Urine Catheterized Urine Pending 02/28/17 18:00 Urine Culture - Final Complete Urine Clean Catch Enterococcus Faecalis 02/27/17 17:30 Aerobic Blood Culture - Preliminary Resulted Blood Peripheral NO GROWTH IN 3 DAYS 02/27/17 17:30 Anaerobic Blood Culture - Preliminary Resulted Blood Peripheral NO GROWTH IN 3 DAYS 02/27/17 10:00 Influenza Types A,B Antigen (АНДРЕЙ) - Final Complete Nasal Aspirate NEGATIVE FOR FLU A AND B ANTIGEN.... Result Diagram: 03/02/17 0530 03/02/17 0530 Imaging Last Impressions Chest X-Ray 03/03/17 0600 Signed Impressions: Service Date/Time: February 05:48 - CONCLUSION: Right greater than left airspace disease. Left consolidation is slightly worse in the interim. Kirby Chdawick MD Head CT 02/28/17 0000 Signed Impressions: Service Date/Time: Tuesday, February 28, 2017 15:48 - CONCLUSION: 1. 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 No acute intracranial abnormality is identified. Cortes Lopez MD CT Angiography 02/28/17 0000 Signed Impressions: Service Date/Time: Tuesday, February 28, 2017 16:01 - CONCLUSION: 1. No pulmonary embolus identified. 2. 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 3. Diffuse interstitial fibrotic change with extensive opacification of the right upper lobe. Cortes Lopez MD Assessment and Plan Assessment and Plan Neuro/Psych: Peripheral neuropathy Chronic codeine use Acetaminophen for fever Acetaminophen/codeine for pain management Continue Neurontin 300 mg by mouth twice a day for neuropathy Limit sedation while on BiPAP CV: History of hypertension Dyslipidemia Evaluated by Dr. Aceves/cardiology 02/28. Recommended 2-D echocardiogram. Ordered. Troponin 0.02 Currently on Pravachol 80 mg by mouth daily for dyslipidemia. On simvastatin 80 mg by mouth daily at home. Currently on normal saline with KCl at 50 cc an hour. Currently not requiring vasopressors and/or antihypertensives Resp: Type I respiratory failure likely secondary to diffusion abnormality/pneumonia History of lung cancer status post left upper lobe lobectomy COPD oxygen dependent Prior tobaccoism History of pulmonary embolism Currently on BiPAP 12/5 at 70% Appears comfortable with respiratory rates between 60 and 22. Follow-up ABG this a.m. At very high risk for intubation. Seen by pulmonology/Dr. Jennings Currently on duo nebs every 6 hours with albuterol every 2 hours. Dyspnea Pulmicort 0.5/2 1 inhalation twice a day Solu-Medrol 40 mg IV every 8 hours On Brovana 15 g inhalation twice a day at home for COPD maintenance CTA chest 02/28 revealed right upper lobe opacification/fibrotic disease, 2.3 x 2 point centimeter left hilar lymph node. Negative VQ mismatch with no signs of pulmonary embolism on CTA chest. Very unlikely shunt but echocardiogram is ordered. GI: Hypoalbuminemia Advance diet as tolerated Protonix for GI prophylaxis Gretel-Colace for bowel regimen : Bella catheter for accurate I's and O's in a critically ill patient Endo: Sliding-scale insulin with Accu-Cheks to maintain euglycemia/low regimen Renal: Acute kidney injury question chronic History of right nephrectomy Creatinine currently 1.2. Monitor urine output Accurate I's and O's Check renal ultrasound/urine electrolytes and eosinophils Heme: Anemia/normocytic Chronic Xarelto use with history of pulmonary embolism Currently on Xarelto 20 by mouth daily Not requiring transfusion of blood products at this time Monitor CBC daily ID: E faecalis UTI Initially treated with ciprofloxacin, vancomycin and aztreonam. Currently on Levaquin, Flagyl, Azactam and vancomycin Noted ESR 140. CRP 35 Pertinent cultures 03/02 - blood cultures 2 - no growth 03/02 - urine strep/Legionella pending 02/28 - urine - E faecalis 02/27 - blood cultures 2 - no growth Influenza negative FEN: Replace electrolytes as clinically indicated MSK Osteoporosis Obesity BMI greater than 30 Continue Os-Henok 500 mg by mouth daily Continue vitamin B-12 and multivitamin daily Access - Utilize peripheral IV. Central line if indicated Prophylaxis - GI - Protonix - DVT - SCD Xarelto 55 minutes critical care time excluding procedures: Code Status Full code Discussed Condition With Patient. RN. Care plan discussed and all questions answered. Cooper Correa MD Mar 03, 2017 07:26
[2017-03-03] MEDS: RESP: ALBUTEROL 2.5 MG/IPRATROPIUM 0.5 MG NEB (SCH) NEB ×6 (07:51→23:36)
[2017-03-03] MEDS: RESP: BUDESONIDE 0.25 MG/2 ML NEB NEB SCH ×2 (07:51→19:51)
[2017-03-03] MEDS ORDERED: GLUCAGON 1 MG/ML VIAL OTHER PRN (08:00)
[2017-03-03] MEDS ORDERED: DEXTROSE 50% IN WATER 50 ML VIAL(D50) IV PRN (08:00)
--- NOTE | 2017-03-03 08:57 | RADRPT ---
EXAM DATE/TIME: 03/03/2017 08:23 [facility] COMPARISON: No previous studies available for comparison. INDICATIONS : Urinary tract infection. Obstruction. MEDICAL HISTORY : Hypercholesterolemia. Emphysema. Arthritis. Lung and renal cancer. COPD. Pulmonary embolism. Dsypnea . UTI. Anticoagulant therapy, Xarelto. SURGICAL HISTORY : Tonsillectomy. Appendectomy. Mastectomy, bilateral. Left upper lung lobectomy. Hysterectomy. Right n ephrectomy. Chemotherapy. ENCOUNTER: Initial ACUITY: 1 day PAIN SCORE: 0/10 LOCATION: Bilateral flank MEASUREMENTS: RIGHT KIDNEY: Surgically removed. LEFT KIDNEY: 11.9 x 5.9 x 7.1 cm FINDINGS: RIGHT KIDNEY: Patient is status post right-sided nephrectomy. LEFT KIDNEY: Renal cortex is normal in thickness and echotexture. Redemonstration of 2.4 x 2.0 x 1.9 cm anechoic avascular cyst in the inferior pole of the left kidney similar to recent CT exam. No hydronephrosis, stone, or mass. BLADDER: Bladder is decompressed secondary to Bella catheter. CONCLUSION: 1. Status post right nephrectomy. 2. Redemonstration of 2.4 x 2.0 x 1.9 cm cyst in the inferior pole the left kidney. 3. No renal calculi or obstructive uropathy. Jem Fletcher MD on March 03, 2017 at 8:49 Board Certified Radiologist. This report was verified electronically.
[2017-03-03] MEDS: DOCUSATE SODIUM 50 MG/SENNA 8.6 MG TAB PO SCH ×2 (09:00→21:00)
[2017-03-03] MEDS: AZTREONAM INJ 1,000 MG in SODIUM CHLORIDE 0.9% INJ 100 ML IV SCH (10:11)
[2017-03-03] MEDS: MULTIVITAMIN TAB PO SCH (10:13)
[2017-03-03] MEDS: CALCIUM/VITAMIN D 250 MG/125 U TAB PO SCH (10:13)
[2017-03-03] MEDS: RIVAROXABAN 20 MG TAB PO SCH (10:13)
[2017-03-03] MEDS: GABAPENTIN 300 MG CAP PO SCH ×2 (10:13→21:00)
[2017-03-03] MEDS: PRAVASTATIN SOD 80 MG TAB PO SCH (10:13)
[2017-03-03] MEDS: CYANOCOBALAMIN 1,000 MCG TAB PO SCH (10:13)
[2017-03-03] MEDS ORDERED: INSULIN NovoLIN REGULAR SUPPLEMENTAL SCALE SQ SCH (11:00)
[2017-03-03 11:08] LABS: BLOOD GAS BASE EXCESS -5.7 mmol/L (-2-2); BLOOD GAS CARBOXYHEMOGLOBIN 1.2 % (0-4); BLOOD GAS HCO3 18 mmol/L (22-26); BLOOD GAS METHEMOGLOBIN 0.8 % (0-2); BLOOD GAS O2 HGB SATURATION 90 % (90-100); BLOOD GAS OXYGEN CONTENT 19.4 Vol % (12.0-20.0); BLOOD GAS PCO2 27 mmHg (38-42); BLOOD GAS PO2 59 mmHg (61-120); BLOOD GAS TOTAL HGB 15.4 G/DL (12.0-16.0); CRITICAL VALUE YES; FIO2 70 %; OXYGEN DEVICE BIPAP; VENT SETTINGS IPAP10/EPAP5
[2017-03-03 11:09] LABS: DRAW SITE LT RADIAL; NUMBER OF ARTERIAL PUNCTURES 1; STAT NO; ULNAR PULSE Y
--- NOTE | 2017-03-03 11:50 | HHI.IDPN ---
Subjective Subjective Remarks The patient is a 76-year-old female who presented to the emergency department with complaint of generalized weakness. She states that she went to the bathroom yesterday, but was not able to get up off the toilet because she felt so weak. Her [id number] helped her up and called paramedics. The patient has COPD and reports chronic dyspnea, but no worse recently. She has cough that is minimally productive. She had fever overnight with night sweats, but feels much better this morning. She denies chest pain. She had an episode of nausea yesterday, but that has resolved. No diarrhea or constipation. She denies dysuria. She reportedly has had multiple hospital admissions and ER visits in the past few months. She reports having extensive workup in December including a brain biopsy. Those records are not available at this time. Notes reviewed Has been running fevers SOB, increasing O2 requirement Claims she is not really coughing or bringing up any phlegm No N/V Had some loose stool 2 days abo, none since No abdominal pain No complaint BC negative UA (+), UC with Enterococcus ESR >140 CRP 35 CXR with fibrosis Legio and Pneumo Ag negative Antibiotics Azactam Levaquin Vancomycin Past Medical History History breast cancer History of renal cancer History of lung cancer Hyperlipidemia COPD History of DVT, ?PE Past Surgical History Partial lobectomy of the left lung Right nephrectomy Hysterectomy Appendectomy Tonsillectomy Bilateral breast surgery for cancer in the 1970s Allergies: Coded Allergies: Penicillin (Verified Allergy, Severe, Hives, 02/26/17) Objective . Vital Signs Date Time Temp Pulse Resp B/P Pulse Ox O2 Delivery O2 Flow Rate FiO2 03/03/17 11:10 92 70 03/03/17 07:50 91 Non-Rebreather 15.00 03/03/17 06:01 90 19 115/77 92 03/03/17 05:00 84 17 107/78 93 03/03/17 04:10 94 70 03/03/17 04:00 97.2 86 19 114/70 90 03/03/17 04:00 90 Bi-Pap 70 03/03/17 03:40 94 70 03/03/17 03:00 86 17 104/61 92 03/03/17 02:00 94 21 96/65 92 03/03/17 01:30 92 60 03/03/17 01:00 98 17 105/64 92 03/03/17 00:00 92 Bi-Pap 60 03/03/17 00:00 98.2 102 24 113/64 92 03/02/17 23:00 102 03/02/17 23:00 106 23 108/65 91 03/02/17 22:45 94 Non-Rebreather 03/02/17 22:00 108 20 104/64 94 03/02/17 21:00 98.0 114 20 98/58 94 03/02/17 21:00 92 Non-Rebreather 15.00 100 03/02/17 20:00 92 Bi-Pap 60 03/02/17 20:00 99.7 114 27 106/64 91 03/02/17 19:50 93 60 03/02/17 18:00 99.1 120 27 99/55 82 03/02/17 17:20 92 Non-Rebreather 15.00 100 03/02/17 17:00 100.5 109 18 96/66 95 03/02/17 16:01 94 50 03/02/17 16:00 101.8 120 23 99/61 93 03/02/17 16:00 84 Bi-Pap 50 03/02/17 15:00 122 03/02/17 14:59 118 21 98/61 94 03/02/17 14:03 102.9 124 19 101/60 95 03/02/17 13:59 124 19 75/56 94 03/02/17 13:50 95 50 03/02/17 12:59 134 25 116/63 87 03/02/17 12:00 92 Non-Rebreather 15.00 100 03/02/17 11:59 99.2 122 18 109/69 95 03/02/17 03/02/17 03/03/17 15:00 23:00 07:00 Intake Total 1367 ml 1000 ml 1190 ml Output Total 600 ml 450 ml 850 ml Balance 767 ml 550 ml 340 ml Intake Oral 220 ml 500 ml 100 ml IV Total 1147 ml 500 ml 1090 ml Output Urine Total 600 ml 450 ml 850 ml # Bowel Movements 0 0 0 . Laboratory Tests Test 03/01/17 03/02/17 03/02/17 22:10 05:30 21:40 White Blood Count 5.3 TH/MM3 5.5 TH/MM3 Red Blood Count 2.80 MIL/MM3 3.35 MIL/MM3 Hemoglobin 8.5 GM/DL 9.8 GM/DL Hematocrit 24.2 % 29.5 % Mean Corpuscular Volume 86.6 FL 88.0 FL Mean Corpuscular Hemoglobin 30.4 PG 29.1 PG Mean Corpuscular Hemoglobin 35.2 % 33.1 % Concent Red Cell Distribution Width 15.1 % 15.1 % Platelet Count 173 TH/MM3 189 TH/MM3 Mean Platelet Volume 6.3 FL 5.9 FL Neutrophils (%) (Auto) 90.9 % 89.4 % Lymphocytes (%) (Auto) 7.3 % 8.1 % Monocytes (%) (Auto) 1.2 % 1.1 % Eosinophils (%) (Auto) 0.3 % 1.2 % Basophils (%) (Auto) 0.3 % 0.2 % Neutrophils # (Auto) 4.8 TH/MM3 4.9 TH/MM3 Lymphocytes # (Auto) 0.4 TH/MM3 0.4 TH/MM3 Monocytes # (Auto) 0.1 TH/MM3 0.1 TH/MM3 Eosinophils # (Auto) 0.0 TH/MM3 0.1 TH/MM3 Basophils # (Auto) 0.0 TH/MM3 0.0 TH/MM3 CBC Comment DIFF FINAL DIFF FINAL Differential Comment Erythrocyte Sedimentation Rate GREATER THAN 140 mm/hr Laboratory Tests Test 03/01/17 03/02/17 03/02/17 22:10 05:30 21:40 Sodium Level 140 MEQ/L 143 MEQ/L Potassium Level 3.6 MEQ/L 3.9 MEQ/L Chloride Level 108 MEQ/L 111 MEQ/L Carbon Dioxide Level 20.6 MEQ/L 21.5 MEQ/L Anion Gap 11 MEQ/L 11 MEQ/L Blood Urea Nitrogen 15 MG/DL 14 MG/DL Creatinine 1.30 MG/DL 1.20 MG/DL Estimat Glomerular Filtration 40 ML/MIN 43 ML/MIN Rate Random Glucose 182 MG/DL 100 MG/DL Calcium Level 7.7 MG/DL 7.7 MG/DL Magnesium Level 1.6 MG/DL Total Bilirubin 0.3 MG/DL Aspartate Amino Transf 36 U/L (AST/SGOT) Alanine Aminotransferase 24 U/L (ALT/SGPT) Alkaline Phosphatase 65 U/L B-Type Natriuretic Peptide 48 PG/ML Total Protein 5.0 GM/DL Albumin 1.5 GM/DL C-Reactive Protein 35.90 MG/DL Microbiology Date/Time Procedure Status Source Growth 02/28/17 18:00 Urine Culture - Final Complete Urine Clean Catch Enterococcus Faecalis 03/02/17 21:40 Aerobic Blood Culture - Preliminary Resulted Blood Peripheral NO GROWTH IN 1 DAY 03/02/17 21:40 Anaerobic Blood Culture - Preliminary Resulted Blood Peripheral NO GROWTH IN 1 DAY 03/02/17 21:45 Legionella Antigen - Final Complete Urine Catheterized Urine PRESUMPTIVE NEGATIVE FOR LEGIONELLA P... 03/02/17 21:45 Streptococcus pneumoniae Antigen (M - Final Complete Urine Clean Catch PRESUMPTIVE NEGATIVE FOR STREPTOCOCCU... 03/02/17 21:49 Aerobic Blood Culture - Preliminary Resulted Blood Peripheral NO GROWTH IN 1 DAY 03/02/17 21:49 Anaerobic Blood Culture - Preliminary Resulted Blood Peripheral NO GROWTH IN 1 DAY Imaging Chest X-Ray 03/03/17 0600 Signed Impressions: Service Date/Time: February 05:48 - CONCLUSION: Right greater than left airspace disease. Left consolidation is slightly worse in the interim. Kirby Chadwick MD Renal Ultrasound 03/03/17 0000 Signed Impressions: Service Date/Time: February 08:23 - CONCLUSION: 1. Status post right nephrectomy. 2. Redemonstration of 2.4 x 2.0 x 1.9 cm cyst in the inferior pole the left kidney. 3. No renal calculi or obstructive uropathy. Jem Fletcher MD Head CT 02/28/17 0000 Signed Impressions: Service Date/Time: Tuesday, February 28, 2017 15:48 - CONCLUSION: 1. 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 No acute intracranial abnormality is identified. Cortes Lopez MD CT Angiography 02/28/17 0000 Signed Impressions: Service Date/Time: Tuesday, February 28, 2017 16:01 - CONCLUSION: 1. No pulmonary embolus identified. 2. 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 3. Diffuse interstitial fibrotic change with extensive opacification of the right upper lobe. Cortes Lopez MD Physical Exam GENERAL: Obese CF, awake and alert, SOB when talking on BIPAP mask SKIN: Cool and dry. No rash HEAD: Atraumatic. Normocephalic. No temporal or scalp tenderness. EYES: Pupils equal round and reactive. Extraocular motions intact. No scleral icterus. No injection or drainage. ENT: Nose without bleeding, purulent drainage. Moist oral mucosa. No oral lesions noted. NECK: Trachea midline. No JVD or lymphadenopathy. Supple, nontender, no meningeal signs. CARDIOVASCULAR: Regular rate and rhythm without murmurs, gallops, or rubs. RESPIRATORY: Decreased breath sounds throughout both lung oliver GASTROINTESTINAL: Abdomen soft, non-tender, nondistended. Positive tonsillar present and normoactive. She has a scar in her right abdomen with an incisional hernia that is reducible. MUSCULOSKELETAL: Extremities without clubbing, cyanosis, or edema. No joint tenderness, effusion, or edema noted. No calf tenderness. Negative Homans sign bilaterally. NEUROLOGICAL: Awake and alert. Grossly non-focal PSYCH: Calm and cooperative : Bella in place, with some sediment in tubing. LINE: NO evidence of infection Assessment & Plan Remarks IMPRESSION Sepsis, with fevers - has Enterococcal UTI; no hydro on L kidney; previous R nephrectomy - has SOB, has COPD and fibrosis, not C/O much of cough or congestion, ? inflammatory vs infection - BC have been negative Known COPD ?Heart disease, BNP ok Hx multiple CA - breast CA, R kidney and L lung Allergy to PCN, tolerates Cephalosporins Respiratory failure RECOMMENDATION Continue Vancomycin Continue Levauin Stop Azactam Repeat UA and C/S Follow C/S Follow temps Monitor progress Will follow D/W Larissa Aldrich MD Mar 03, 2017 11:49
--- NOTE | 2017-03-03 12:35 | ECHRPT ---
Indication: Shortness of breath CONCLUSIONS Normal left ventricular size. Wall thickness is normal. The left ventricular systolic function is hyperdynamic with an estimated ejection fraction in the ra nge of 65- 70%. No definite regional wall motion abnormalities are present. Mild tricuspid regurgitation. Trace mitral regurgitation. BP: 115 / 77 HR: 90 Rhythm: Sinus MEASUREMENTS (Male / Female) Normal Values Technical Quality:Poor 2D ECHO LV Diastolic Diameter PLAX 4.6 cm 4.2 - 5.9 / 3.9 - 5.3 cm LV Systolic Diameter PLAX 3.1 cm IVS Diastolic Thickness 0.9 cm 0.6 - 1.0 / 0.6 - 0.9 cm LVPW Diastolic Thickness 0.9 cm 0.6 - 1.0 / 0.6 - 0.9 cm LV Relative Wall Thickness 0.4 LVOT Diameter 2.3 cm Aortic Root Diameter 3.3 cm LA Systolic Diameter LX 3.5 cm 3.0 - 4.0 / 2.7 - 3.8 cm M-MODE AV Cusp Separation MM 2.0 cm DOPPLER AV Peak Velocity 143.0 cm/s AV Peak Gradient 8.2 mmHg AV Mean Gradient 4.0 mmHg AV Velocity Time Integral 20.4 cm LVOT Peak Velocity 72.6 cm/s LVOT Peak Gradient 2.1 mmHg LVOT Velocity Time Integral 10.4 cm LVOT Cardiac Index 1700.4 cm/minm AV Area Cont Eq vti 2.1 cm AV Area Cont Eq pk 2.1 cm Mitral E Point Velocity 67.5 cm/s Mitral A Point Velocity 84.0 cm/s Mitral E to A Ratio 0.8 LV E' Lateral Velocity 7.4 cm/s Mitral E to LV E' Lateral Ratio 9.1 LV E' Septal Velocity 4.1 cm/s Mitral E to LV E' Septal Ratio 16.5 TR Peak Velocity 311.0 cm/s TR Peak Gradient 38.7 mmHg PV Peak Velocity 59.4 cm/s PV Peak Gradient 1.4 mmHg FINDINGS LEFT VENTRICLE Normal left ventricular size. Wall thickness is normal. The left ventricular systolic function is hyperdynamic with an estimated ejection fraction in the ra nge of 65- 70%. No regional wall motion abnormalities are present. Doppler parameters are consistent with impaired left ventricular relaxtion (grade 1 diastolic dysfun ction). MITRAL VALVE Trace mitral regurgitation. TRICUSPID VALVE Mild tricuspid regurgitation. VESSELS The inferior vena cava is normal in size. There is greater than 50% respiratory change in dimension of the inferior vena cava (normal). PERICARDIUM Possible trace to small anterior PE vs pericardial fat pad out near the apex. James Gómez MD (Electronically Signed) Final Date:03 March 2017 12:34
[2017-03-03] MEDS: SODIUM CHLORIDE 0.9% FLUSH 10 ML FLUSH IV FLUSH SCH ×2 (12:48→22:08)
[2017-03-03] MEDS ORDERED: ETOMIDATE 40 MG/20 ML VIAL ONE (13:33)
[2017-03-03] MEDS ORDERED: AMIODARONE 150 MG/D5W 97 ML BOLUS 10 MINUTES IV ONE ×2 (14:00)
[2017-03-03] MEDS ORDERED: D5W IV SCH (14:00)
[2017-03-03] MEDS ORDERED: AMIODARONE IV SCH (14:00)
[2017-03-03 14:10] LABS: BLOOD GAS BASE EXCESS -11.5 mmol/L (-2-2); BLOOD GAS CARBOXYHEMOGLOBIN 0.1 % (0-4); BLOOD GAS HCO3 16 mmol/L (22-26); BLOOD GAS METHEMOGLOBIN 1.6 % (0-2); BLOOD GAS O2 HGB SATURATION 65 % (90-100); BLOOD GAS OXYGEN CONTENT 9.4 Vol % (12.0-20.0); BLOOD GAS PCO2 54 mmHg (38-42); BLOOD GAS PO2 47 mmHg (61-120); BLOOD GAS TOTAL HGB 10.2 G/DL (12.0-16.0); FIO2 100 %; OXYGEN DEVICE VENT
[2017-03-03 14:11] LABS: DRAW SITE LT FEMORAL; NUMBER OF ARTERIAL PUNCTURES 1; STAT YES
--- NOTE | 2017-03-03 14:12 | RADRPT ---
EXAM DATE/TIME: 03/03/2017 13:58 [facility] COMPARISON: CHEST SINGLE AP, March 01, 2017, 21:58. INDICATIONS : Post intubation & POST CODE. MEDICAL HISTORY : Hypercholesterolemia. Emphysema. Arthritis. Lung and renal cancer. COPD.Pulmonary embolism. Dsypnea. UTI. Anticoagulant therapy, Xarelto. SURGICAL HISTORY : Tonsillectomy. Appendectomy. Mastectomy, bilateral. Left upper lung lobectomy. Hysterectomy. Right ne phrectomy. Chemotherapy. ENCOUNTER: Subsequent ACUITY: 1 day PAIN SCORE: Non-responsive. LOCATION: chest FINDINGS: Endotracheal tube tip is in satisfactory physician. NG enters stomach. There is underlying pulmonary fibrosis as well as superimposed airspace disease in the lungs that has worsened bilaterally since ne . This could represent superimposed edema or infection. No significant effusion. CONCLUSION: 1. Endotracheal tube and nasogastric tube in satisfactory position. 2. Underlying pulmonary fibrosis with new bilateral airspace disease that has worsened over the last 2 days. Differential diagnosis includes edema and infection. Aurelio Aceves MD on March 03, 2017 at 14:06 Board Certified Radiologist. This report was verified electronically.
[2017-03-03] MEDS ORDERED: DILTIAZEM HCL 25 MG/5 ML VIAL ONE ×2 (14:21→14:23)
[2017-03-03] MEDS ORDERED: SODIUM CHLOR 0.9% 1000 ML INJ 1,000 ML IV SCH (14:30)
[2017-03-03] MEDS ORDERED: DILTIAZEM 125 MG/NS 100 ML IV SCH ×2 (14:30)
[2017-03-03] MEDS ORDERED: FUROSEMIDE 100 MG/10 ML VIAL IV PUSH ONE (14:30)
[2017-03-03] MEDS ORDERED: ETOMIDATE 20 MG/10 ML VIAL IV PUSH ONE (14:45)
[2017-03-03] MEDS ORDERED: ROCURONIUM INJ 50 MG/5 ML VIAL IV ONE (14:45)
[2017-03-03] MEDS ORDERED: CISATRACURIUM 100 MG/NS 250 ML IV SCH ×2 (14:45)
[2017-03-03 15:25] LABS: AUTOMATED NEUTROPHIL # 12.5 TH/MM3 (1.8-7.7); BASOPHIL % 0.1 % (0.0-2.0); EOSINOPHIL % 0.1 % (0.0-4.0); HEMATOCRIT 31.1 % (35.0-46.0); LYMPH % 5.6 % (9.0-44.0); LYMPHOCYTE # 0.8 TH/MM3 (1.0-4.8); MEAN CELL VOLUME 88.6 FL (80.0-100.0); MEAN CORPUSCULAR HEMOGLOBIN 29.6 PG (27.0-34.0); MEAN CORPUSCULAR HGB CONC 33.5 % (32.0-36.0); MONO % 1.2 % (0.0-8.0); PLATELET COUNT 368 TH/MM3 (150-450); RED BLOOD COUNT 3.52 MIL/MM3 (4.00-5.30); WHITE BLOOD COUNT 13.5 TH/MM3 (4.0-11.0)
--- NOTE | 2017-03-03 15:26 | PD.PROCEDR ---
Central Line Procedure REASON FOR PROCEDURE Central venous access PROCEDURE PERFORMED Central line placement: Right IJ CVL CONSENT Informed consent for procedure was not obtained and considered emergent due to and intravascular access and multiple medication necessary for resuscitation. The risks and benefits of the procedure were discussed to include but limited to bleeding, clot formation, infection, and even . ANESTHESIA Local injection of 1% Lidocaine DESCRIPTION OF THE PROCEDURE The patient was placed in supine, mild Trendelenburg position. The area was exposed and cleansed with ChloraPrep, times two. Large sterile drape was used to cover the patient, with the site exposed, under sterile conditions including cap, face mask, sterile gown, and sterile gloves. On single attempt, the introducer needle was inserted with negative pressure in syringe and venous flash was obtained. The guide wire was then advanced without any restriction and the needle was removed. The dilator was used without any complications. Using Seldinger technique the antibiotic coated triple-lumen catheter was advanced over the guide wire to a depth of 16 centimeters. The guide wire was removed. All ports were aspirated with dark venous blood return and flushed easily with sterile saline. All ports were capped. Antibiotic disc was placed around central line at puncture site. The central line was secured to the skin with two interrupted 2.0 silk sutures. The area was bandaged with sterile see- through central line bandage. RADIOLOGICAL DATA Ultrasound guidance was used to locate right internal jugular vein. Doppler/ color flow was used to confirm venous flow. COMPLICATIONS: No apparent complications ESTIMATED BLOOD LOSS: Less than 1 cc. Cooper Correa MD Mar 03, 2017 15:26
--- NOTE | 2017-03-03 15:28 | PD.PROCEDR ---
Procedure Note Procedure DATE: 03/03/17 PROCEDURE: Left Femoral arterial catheter placement INDICATION: Hemodynamic access status post CODE BLUE DETAILS OF PROCEDURE The patient was placed in supine position. The skin was cleansed with Chloraprep. Additional barrier precautions included large sterile drape, sterile gloves, sterile gown, face mask, and hat. 1% lidocaine was used for local anesthesia. Under direct ultrasound guidance and on the initial attempt, the artery was accessed with an introducer needle. The guide wire was advanced. Using Seldinger technique 20 gauge arterial catheter was placed. The guide wire was removed. The catheter was connected to a transducer line and flushed with saline. The video monitor displayed normal arterial wave forms. The catheter was secured with 2-0 silk. A sterile dressing with antibiotic disc was applied. ESTIMATED BLOOD LOSS: minimal COMPLICATIONS: None Cooper Correa MD Mar 03, 2017 15:27
[2017-03-03] MEDS ORDERED: SODIUM CHLORIDE 0.9% FLUSH 10 ML FLUSH IVF PRN (15:30)
[2017-03-03 15:35] LABS: HEMO FLAGS DIFF FINAL
[2017-03-03 15:36] LABS: CHLORIDE 112 MEQ/L (98-107); POTASSIUM 4.6 MEQ/L (3.5-5.1); SODIUM (NA) 144 MEQ/L (136-145)
[2017-03-03 15:37] LABS: MAGNESIUM 1.9 MG/DL (1.5-2.5)
[2017-03-03 15:40] LABS: ANION GAP 13 MEQ/L (5-15); BICARBONATE 18.8 MEQ/L (21.0-32.0)
[2017-03-03] MEDS ORDERED: MIDAZOLAM HCL 5 MG/ML VIAL (1 ML) ONE (15:40)
[2017-03-03 15:41] LABS: APTT (PATIENT) 34.5 SEC (24.3-30.1); INTERNATIONAL NORMALIZED RATIO 1.5 RATIO; PROTHROMBIN TIME - PATIENT 16.6 SEC (9.8-11.6)
[2017-03-03] MEDS ORDERED: TERBUTALINE INJ 1 MG/ML AMP SQ PRN (15:45)
--- NOTE | 2017-03-03 15:49 | RADRPT ---
EXAM DATE/TIME: 03/03/2017 15:31 [facility] COMPARISON: CHEST SINGLE AP, March 03, 2017, 13:58. INDICATIONS : Central line placement. MEDICAL HISTORY : Chronic obstructive pulmonary disease. Carcinoma, lung. Renal cancer. SURGICAL HISTORY : Mastectomy, bilateral. Left upper lung lobectomy. Right nephrectomy. ENCOUNTER: Subsequent ACUITY: 4 - 6 days PAIN SCORE: Non-responsive. LOCATION: Bilateral chest FINDINGS: Portable AP view of the chest demonstrates a normal-sized cardiac silhouette. Right IJ line distal ti p is in the SVC. ETT and nasogastric tube are present. Multiple EKG lines overlie the patient. There is symmetric biapical pleural-parenchymal scar. Diffuse bilateral airspace consolidation is present, right greater than left. No pneumothorax is visualized. CONCLUSION: 1. Right IJ line distal tip is in the SVC. No pneumothorax is present. 2. Diffuse bilateral airspace consolidation remains present. Kirby Harris MD on March 03, 2017 at 15:45 Board Certified Radiologist. This report was verified electronically.
[2017-03-03 15:52] LABS: ALKALINE PHOSPHATASE 301 U/L (45-117); ALT (GPT) 101 U/L (10-53); AST (GOT) 255 U/L (15-37); BLOOD UREA NITROGEN 26 MG/DL (7-18); CREATINE KINASE 131 U/L (26-192); GLOMERULAR FILTRATION RATE 48 ML/MIN (>89); TOTAL BILIRUBIN ADULT 0.8 MG/DL (0.2-1.0)
[2017-03-03] MEDS ORDERED: MIDAZOLAM 100 MG/ML INJ 100 ML IV SCH (16:00)
[2017-03-03] MEDS ORDERED: METOPROLOL TARTRATE 5 MG/5 ML VIAL IV PUSH ONE (16:00)
[2017-03-03 16:19] LABS: CKMB 2.6 NG/ML (0.5-3.6)
[2017-03-03] MEDS: PHENYLEPHRINE INJ 160 MG in DEXTROSE 5% IN WATE 500 ML INJ 484 ML IV SCH ×4 (16:28→19:33)
[2017-03-03] MEDS: PROPOFOL 1000 MG/100 ML INJ 100 ML IV SCH ×2 (16:28→21:32)
[2017-03-03] MEDS: EPOPROSTENOL NEB SOLUTION 50 NG/KG/MIN 100 ML NEB SCH ×2 (16:29)
[2017-03-03] MEDS: methylPREDNISolone SOD SUCC 40 MG/1 ML VIAL IV PUSH SCH ×2 (16:39→22:07)
[2017-03-03] MEDS ORDERED: ALBUMIN HUMAN 25% 25 GM/100 ML BAGP IV ONE (17:00)
[2017-03-03 17:11] LABS: BLOOD GAS BASE EXCESS -11.5 mmol/L (-2-2); BLOOD GAS CARBOXYHEMOGLOBIN 0.9 % (0-4); BLOOD GAS HCO3 14 mmol/L (22-26); BLOOD GAS METHEMOGLOBIN 1.1 % (0-2); BLOOD GAS O2 HGB SATURATION 90 % (90-100); BLOOD GAS OXYGEN CONTENT 13.8 Vol % (12.0-20.0); BLOOD GAS PCO2 33 mmHg (38-42); BLOOD GAS PO2 72 mmHg (61-120); BLOOD GAS TOTAL HGB 10.8 G/DL (12.0-16.0); CRITICAL VALUE YES; OXYGEN DEVICE VENTILATOR
[2017-03-03 17:12] LABS: DRAW SITE ART LINE; FIO2 100 %; STAT NO; VENT SETTINGS 16/700/PEEP12
[2017-03-03 17:13] LABS: BLOOD GAS CARBOXYHEMOGLOBIN 0.8 % (0-4); BLOOD GAS HCO3 18 mmol/L (22-26); BLOOD GAS METHEMOGLOBIN 0.8 % (0-2); BLOOD GAS O2 HGB SATURATION 86 % (90-100); BLOOD GAS OXYGEN CONTENT 13.5 Vol % (12.0-20.0); BLOOD GAS PCO2 44 mmHg (38-42); BLOOD GAS PO2 62 mmHg (61-120); BLOOD GAS TOTAL HGB 11.1 G/DL (12.0-16.0); CRITICAL VALUE YES; OXYGEN DEVICE VENTILATOR
[2017-03-03 17:14] LABS: DRAW SITE ART LINE; FIO2 100 %; STAT NO; VENT SETTINGS 22/600/PEEP12
[2017-03-03 17:21] LABS: LACTIC ACID GHOST NOT REPORTABLE
[2017-03-03] MEDS ORDERED: VANCOMYCIN INJ 1,750 MG in SODIUM CHLORID 0.9% 500 ML INJ 500 ML IV SCH (18:00)
--- NOTE | 2017-03-03 18:07 | PD.CONS ---
Consult Service Palliative Care Consult Requested By [facility] Primary Care Physician Dr. Ruffin Reason for Consultation a. To assist with evaluation and management of symptoms including: dyspnea , anxiety b. To assist medical decision maker(s) with: better understanding of current medical conditions; weighing benefits/burdens of medical treatment options; making medical treatment decisions. HPI History of Present Illness 76 y/o patient with history of End Stage COPD, collapsed at home last Tuesday and was seen in [facility] and discharged home. After being unable to get off the toilet she was EVAC'd to [facility] 02/26 then [place] [facility] She has a history of multiple ED evaluations since December 2016 for weakness, falls, AMS and has undergone brain biopsy by Dr. Rodney Curtis in [facility] which was negative for cancer by pathology and confirmed negative for cancer in a second opinion sought from [facility]. She has a history of multiple cancers, starting in 2015 to include a non small cell Left Lung cancer, s/p RAJESH lobectomy , breast cancer status post lumpectomy, renal cancer with Right nephrectomy. She smoked extensively through most of her life, but quit 6 years ago. She lives with her son, Kirby, and [id number] in [place] and has begun to have mental status changes to include confusion, forgetfulness and hallucinations. VS: BP 132/79, HR 110, RR 27, O2 97% on 100% FiO2 via ventilator. WBC 13.5, Hgb, 18.4, Gct 31.1, Plts 368, Na 144, K+ 4.6, Chl 112, CO2 18.8, BUN 26, Cr 1.10, lactic acid 4.1, 7.0, Trop 0.66, AST 255, ALT 101, Alk Phos 301, Ammonia 110. ABG pH 7.26, PCO2 33, PaO2 72, HC03 14, BE - 11.5, O2Sat 90% on 100% Fi02. This is an elderly, female, intubated, sedated. She had become significantly dyspneic over the day and was electively intubated for airway protection. During that procedure she developed V-fib and received a 200 joule shock with epinephrine, converting her back to SR/ST. She remains tachycardic on amiodarone and cardizem. Her son called the unit requesting an update and at the request of the RN, Katey, I spoke with him to relay the events of the afternoon. Function/Cognitive Trajectory In 2014 she was able to walk to the bus stop with her can and had been able to take care of herself, but, since , she has been declining in functional status, experiencing confusion, forgetfulness, confusing family members, requiring supplemental oxygen, developed fecal and urinary incontinence, significant weakness and having trouble rising off the commode. She has had multiple hospitalizations over the last year. Review of Systems ROS Limitations: Clinical Condition, Intubated Past Family Social History Coded Allergies: Penicillin (Verified Allergy, Severe, Hives, 03/03/17) Has taken Keflex without any problem Past Medical History History breast cancer History of renal cancer History of lung cancer Hyperlipidemia COPD History of DVT, ?PE HTN Chronic back pain Past Surgical History Partial lobectomy of the left lung Right nephrectomy Hysterectomy Appendectomy Tonsillectomy Bilateral breast surgery for cancer in the 1970s Reported Medications Reported Meds & Active Scripts Active Reported B12 (Cyanocobalamin) 1,000 Mcg Tab 1 Tab PO DAILY Calcium 500 +D (Calcium Carbonate-Cholecalciferol) 500-400 Mg-Unit Tab 1 Tab PO DAILY Once Daily (Multivitamin) 1 Each Tablet 1 Tab PO DAILY Tylenol-Codeine #3 (Acetaminophen-Codeine) 300-30 mg Tab 1 Tab PO DAILY PRN Budesonide Neb 0.25 Mg/2 Ml Neb 0.25 Mg NEB Q12HR NEB Brovana Neb (Arformoterol Neb) 15 Mcg/2 Ml Vial 1 Nebule NEB BID Maintenance treatment of bronchoconstriction in COPD. Xarelto (Rivaroxaban) 20 Mg Tab 20 Mg PO DAILY Gabapentin 300 Mg Cap 300 Mg PO BID Simvastatin 80 Mg Tab 80 Mg PO DAILY Current Medications Medications (Trade) Dose Ordered Sig/Carlota Route Start Time Stop Time Status Last Admin (NS Flush) 2 ml UNSCH PRN IV FLUSH 02/27/17 01:15 (NS Flush) 2 ml BID IV FLUSH 02/27/17 09:00 03/03/17 12:48 (Tylenol) 650 mg Q4H PRN PO 02/27/17 01:15 03/02/17 23:19 (Zofran Inj) 4 mg Q6H PRN IVP 02/27/17 01:15 (Narcan Inj) 0.4 mg UNSCH PRN IV 02/27/17 01:15 (Gretel-Colace) 1 tab BID PO 02/27/17 09:00 03/02/17 08:30 (Milk Of Magnesia Liq) 30 ml Q12H PRN PO 02/27/17 01:15 (Senokot) 17.2 mg Q12H PRN PO 02/27/17 01:15 (Dulcolax Supp) 10 mg DAILY PRN RECTAL 02/27/17 01:15 (Tylenol-Codeine #3) 1 tab DAILY PRN PO 02/27/17 08:00 03/02/17 08:33 (Neurontin) 300 mg BID PO 02/27/17 09:00 03/03/17 10:13 (Xarelto) 20 mg DAILY PO 02/27/17 09:00 Hold 03/03/17 10:13 Patient Own Medication ARFORMOTEROL (BROVANA) 1 INH BID BID INH 02/27/17 09:00 Hold (Oscal-D 250-125) 500 mg DAILY PO 02/27/17 09:00 03/03/17 10:13 (Vitamin B12) 1,000 mcg DAILY PO 02/27/17 09:00 03/03/17 10:13 (Theragran) 1 tab DAILY PO 02/27/17 09:00 03/03/17 10:13 (Pravachol) 80 mg DAILY PO 02/27/17 09:00 03/03/17 10:13 Miscellaneous Information Patient in critical care unit? Ass... Q361D .XX 02/28/17 12:15 02/28/17 13:00 (Chlorhexidine 2% Cloth) 3 pack DAILY@04 TOPICAL 03/01/17 04:00 03/05/17 04:01 03/02/17 23:33 Chlorhexidine Gluconate 3 pack 3 pack UNSCH PRN TOPICAL 02/28/17 12:15 03/05/17 12:01 (Vancomycin Consult Pharmacy) 0 ml @ 0 mls/hr UNSCH OTHER 02/28/17 17:00 Acetaminophen 650 mg 650 mg Q4H PRN RECTAL 03/02/17 15:00 03/02/17 15:23 Metronidazole 100 ml @ 100 mls/hr Q8H IV 03/03/17 00:00 03/03/17 16:40 (Levaquin 750 Mg Premix Inj) 150 ml @ 100 mls/hr Q48H IV 03/02/17 22:00 03/02/17 21:53 (SoluMEDROL INJ) 40 mg Q8HR IV PUSH 03/03/17 14:00 03/03/17 16:39 (D50w (Vial) Inj) 50 ml UNSCH PRN IV 03/03/17 08:00 Glucagon 1 mg 1 mg UNSCH PRN OTHER 03/03/17 08:00 Vancomycin HCl 1750 mg/Sodium Chloride 517.5 ml @ 250 mls/hr Q18H IV 03/03/17 18:00 Propofol 100 ml @ 0 mls/hr TITRATE IV 03/03/17 13:45 03/03/17 16:28 Fentanyl Citrate 250 ml @ 0 mls/hr TITRATE IV 03/03/17 13:45 Amiodarone HCl 900 mg/Dextrose 500 ml @ 0 mls/hr CONTINUOUS IV 03/03/17 14:00 03/03/17 16:27 Diltiazem HCl 125 mg/Sodium Chloride 125 ml @ 0 mls/hr TITRATE IV 03/03/17 14:30 (Flolan (30,000 Ng/ml) Neb/NS Inj) 100 ml @ 8 mls/hr Q8H NEB 03/03/17 16:00 03/03/17 16:29 (NS Flush) DAILY IVF 03/04/17 09:00 (NS Flush) UNSCH PRN IVF 03/03/17 15:30 Chlorhexidine Gluconate 15 ml 15 ml BID@08,20 MT 03/03/17 20:00 (Versed Inj) 100 ml @ 0 mls/hr TITRATE IV 03/03/17 16:00 Terbutaline Sulfate 1 mg 1 mg UNSCH PRN SQ 03/03/17 15:45 Phenylephrine HCl 160 mg/Dextrose 500 ml @ 0 mls/hr TITRATE IV 03/03/17 15:45 03/03/17 16:28 (Nimbex Inj/NS 250 ml Inj) 250 ml @ 0 mls/hr TITRATE IV 03/03/17 16:00 Insulin Human Regular 1 1 Q4HR SQ 03/03/17 20:00 Vasopressin 40 units/Dextrose 100 ml @ 1.5 mls/hr Q24H IV 03/03/17 16:33 (Sodium Bicarbonate 8.4% Inj/Sterile Water For Inj) 1,000 ml @ 150 mls/hr Q6H40M IV 03/03/17 18:00 Family History Dad passed at a young age, unknown cause. Mother passed at 78, CAD. Aunt with Breast cancer Substance Use Tobacco: quit 2010, previously smoked 1-2 PPD. Alcohol: None. Prescription med abuse: No drug use. Illicits: None Psychosocial History Born in [place], moved to [place] in 2014 to live with her son. 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 She is the oldest of 7 children and had 3 children, Ron (disabled with mental retardation), Davi and Kirby. Kirby states his brother Davi is the HCS and will bring in the form. Spiritual/Cultural Factors Raised Tenriism, would like a nursing techn visit. Living Will: Completed, but not made available Health Care Surrogate: Completed, but not made available Durable Power of Day Habilitation Supervisor: Completed, but not made available Physical Exam Vital Signs Date Time Temp Pulse Resp B/P Pulse Ox O2 Delivery O2 Flow Rate FiO2 03/03/17 16:47 91 100 03/03/17 14:45 88 100 03/03/17 12:00 98.0 110 27 132/79 92 03/03/17 11:10 92 70 03/03/17 11:00 104 22 115/73 92 03/03/17 10:00 110 20 119/72 93 03/03/17 09:00 106 21 117/83 91 03/03/17 08:00 97.9 114 21 134/73 87 03/03/17 07:50 91 Non-Rebreather 15.00 03/03/17 06:01 90 19 115/77 92 03/03/17 05:00 84 17 107/78 93 03/03/17 04:10 94 70 03/03/17 04:00 97.2 86 19 114/70 90 03/03/17 04:00 90 Bi-Pap 70 03/03/17 03:40 94 70 03/03/17 03:00 86 17 104/61 92 03/03/17 02:00 94 21 96/65 92 03/03/17 01:30 92 60 03/03/17 01:00 98 17 105/64 92 03/03/17 00:00 92 Bi-Pap 60 03/03/17 00:00 98.2 102 24 113/64 92 03/02/17 23:00 102 03/02/17 23:00 106 23 108/65 91 03/02/17 22:45 94 Non-Rebreather 03/02/17 22:00 108 20 104/64 94 03/02/17 21:00 98.0 114 20 98/58 94 03/02/17 21:00 92 Non-Rebreather 15.00 100 03/02/17 20:00 92 Bi-Pap 60 03/02/17 20:00 99.7 114 27 106/64 91 03/02/17 19:50 93 60 03/02/17 18:00 99.1 120 27 99/55 82 03/02/17 03/03/17 19:00 07:00 Intake Total 1367 ml 2190 ml Output Total 600 ml 1300 ml Balance 767 ml 890 ml Intake Oral 220 ml 600 ml IV Total 1147 ml 1590 ml Output Urine Total 600 ml 1300 ml # Bowel Movements 0 0 Exam CONSTITUTIONAL/GENERAL: This is an obese, elderly female, intubated, sedated.. TUBES/LINES/DRAINS: PIV RFA, LFA, LAC SKIN: No jaundice, rashes, or lesions. No wounds seen anteriorly. Skin temperature appropriate. Not diaphoretic. HEAD: Atraumatic. Normocephalic. EYES: Pupils equal and round and reactive. No scleral icterus. ENT: Hearing grossly normal. Nose without bleeding or purulent drainage. NECK: Trachea midline. CARDIOVASCULAR: Tachycardic rate and regular rhythm without murmurs, gallops, or rubs. RESPIRATORY/CHEST: Symmetric, respirations. Diminished, intubated, mechanically ventilated. GASTROINTESTINAL: Abdomen soft, nondistended. GENITOURINARY: Without palpable bladder distension. Bella catheter in place. MUSCULOSKELETAL: Extremities without clubbing, cyanosis. Trace edema NEUROLOGICAL: Intubated, sedated. PSYCHIATRIC: Sedated. Diagnostic Tests Laboratory Laboratory Tests Test 02/28/17 03/01/17 03/01/17 03/01/17 18:00 04:47 22:00 22:10 Nasal Screen MRSA (PCR) MRSA NOT DETECTED (NOT DETECT) Urine Color YELLOW (YELLW/STRAW) Urine Turbidity HAZY (CLEAR) Urine pH 5.5 (5.0-8.5) Urine Specific [place] 1.027 (1.002-1.035) Urine Protein 30 mg/dL (NEG-TRACE) Urine Glucose (UA) NEG mg/dL (NEG) Urine Ketones NEG mg/dL (NEG) Urine Occult Blood MOD (NEG) Urine Nitrite NEG (NEG) Urine Bilirubin NEG (NEG) Urine Leukocyte Esterase NEG (NEG) Urine RBC 0-3 /hpf (0-3) Urine WBC 9-14 /hpf (0-5) Urine Squamous Epithelial 0-5 /hpf (0-5) Cells Urine Bacteria MANY /hpf (NONE) Microscopic Urinalysis Comment CULTURE INDICATED White Blood Count 4.2 TH/MM3 5.3 TH/MM3 (4.0-11.0) (4.0-11.0) Red Blood Count 3.33 MIL/MM3 2.80 MIL/MM3 (4.00-5.30) (4.00-5.30) Hemoglobin 9.6 GM/DL 8.5 GM/DL (11.6-15.3) (11.6-15.3) Hematocrit 29.0 % 24.2 % (35.0-46.0) (35.0-46.0) Mean Corpuscular Volume 87.0 FL 86.6 FL (80.0-100.0) (80.0-100.0) Mean Corpuscular Hemoglobin 28.7 PG 30.4 PG (27.0-34.0) (27.0-34.0) Mean Corpuscular Hemoglobin 33.0 % 35.2 % Concent (32.0-36.0) (32.0-36.0) Red Cell Distribution Width 15.3 % 15.1 % (11.6-17.2) (11.6-17.2) Platelet Count 180 TH/MM3 173 TH/MM3 (150-450) (150-450) Mean Platelet Volume 6.4 FL 6.3 FL (7.0-11.0) (7.0-11.0) Neutrophils (%) (Auto) 83.9 % 90.9 % (16.0-70.0) (16.0-70.0) Lymphocytes (%) (Auto) 11.8 % 7.3 % (9.0-44.0) (9.0-44.0) Monocytes (%) (Auto) 3.0 % (0.0-8.0) 1.2 % (0.0-8.0) Eosinophils (%) (Auto) 1.2 % (0.0-4.0) 0.3 % (0.0-4.0) Basophils (%) (Auto) 0.1 % (0.0-2.0) 0.3 % (0.0-2.0) Neutrophils # (Auto) 3.6 TH/MM3 4.8 TH/MM3 (1.8-7.7) (1.8-7.7) Lymphocytes # (Auto) 0.5 TH/MM3 0.4 TH/MM3 (1.0-4.8) (1.0-4.8) Monocytes # (Auto) 0.1 TH/MM3 0.1 TH/MM3 (0-0.9) (0-0.9) Eosinophils # (Auto) 0.0 TH/MM3 0.0 TH/MM3 (0-0.4) (0-0.4) Basophils # (Auto) 0.0 TH/MM3 0.0 TH/MM3 (0-0.2) (0-0.2) CBC Comment DIFF FINAL DIFF FINAL Differential Comment Sodium Level 144 MEQ/L 140 MEQ/L (136-145) (136-145) Potassium Level 3.8 MEQ/L 3.6 MEQ/L (3.5-5.1) (3.5-5.1) Chloride Level 110 MEQ/L 108 MEQ/L (98-107) (98-107) Carbon Dioxide Level 23.4 MEQ/L 20.6 MEQ/L (21.0-32.0) (21.0-32.0) Anion Gap 11 MEQ/L (5-15) 11 MEQ/L (5-15) Blood Urea Nitrogen 13 MG/DL (7-18) 15 MG/DL (7-18) Creatinine 1.10 MG/DL 1.30 MG/DL (0.50-1.00) (0.50-1.00) Estimat Glomerular Filtration 48 ML/MIN (>89) 40 ML/MIN (>89) Rate Random Glucose 94 MG/DL 182 MG/DL (74-106) (74-106) Calcium Level 8.1 MG/DL 7.7 MG/DL (8.5-10.1) (8.5-10.1) Blood Gas Puncture Site RT RADIAL Blood Gas Patient Temperature 37.0 Blood Gas HCO3 18 mmol/L (22-26) Blood Gas Base Excess -5.4 mmol/L (-2-2) Blood Gas Oxygen Saturation 91 % (90-100) Arterial Blood pH 7.46 (7.380-7.420) Arterial Blood Partial 25 mmHg (38-42) Pressure CO2 Arterial Blood Partial 61 mmHg Pressure O2 (61-120) Arterial Blood Oxygen Content 12.3 Vol % (12.0-20.0) Arterial Blood 1.5 % (0-4) Carboxyhemoglobin Arterial Blood Methemoglobin 0.7 % (0-2) Blood Gas Hemoglobin 9.6 G/DL (12.0-16.0) Oxygen Delivery Device Venti Mask Blood Gas Inspired Oxygen 50 % Magnesium Level 1.6 MG/DL (1.5-2.5) Total Bilirubin 0.3 MG/DL (0.2-1.0) Aspartate Amino Transf 36 U/L (15-37) (AST/SGOT) Alanine Aminotransferase 24 U/L (10-53) (ALT/SGPT) Alkaline Phosphatase 65 U/L (45-117) B-Type Natriuretic Peptide 48 PG/ML (0-100) Total Protein 5.0 GM/DL (6.4-8.2) Albumin 1.5 GM/DL (3.4-5.0) Test 03/01/17 03/01/17 03/02/17 03/02/17 23:40 23:47 05:30 21:40 Blood Type A POSITIVE A POSITIVE Antibody Screen NEGATIVE Crossmatch Leukocyte-Reduced Red Blood Cells Blood Bank Comment White Blood Count 5.5 TH/MM3 (4.0-11.0) Red Blood Count 3.35 MIL/MM3 (4.00-5.30) Hemoglobin 9.8 GM/DL (11.6-15.3) Hematocrit 29.5 % (35.0-46.0) Mean Corpuscular Volume 88.0 FL (80.0-100.0) Mean Corpuscular Hemoglobin 29.1 PG (27.0-34.0) Mean Corpuscular Hemoglobin 33.1 % Concent (32.0-36.0) Red Cell Distribution Width 15.1 % (11.6-17.2) Platelet Count 189 TH/MM3 (150-450) Mean Platelet Volume 5.9 FL (7.0-11.0) Neutrophils (%) (Auto) 89.4 % (16.0-70.0) Lymphocytes (%) (Auto) 8.1 % (9.0-44.0) Monocytes (%) (Auto) 1.1 % (0.0-8.0) Eosinophils (%) (Auto) 1.2 % (0.0-4.0) Basophils (%) (Auto) 0.2 % (0.0-2.0) Neutrophils # (Auto) 4.9 TH/MM3 (1.8-7.7) Lymphocytes # (Auto) 0.4 TH/MM3 (1.0-4.8) Monocytes # (Auto) 0.1 TH/MM3 (0-0.9) Eosinophils # (Auto) 0.1 TH/MM3 (0-0.4) Basophils # (Auto) 0.0 TH/MM3 (0-0.2) CBC Comment DIFF FINAL Differential Comment Sodium Level 143 MEQ/L (136-145) Potassium Level 3.9 MEQ/L (3.5-5.1) Chloride Level 111 MEQ/L (98-107) Carbon Dioxide Level 21.5 MEQ/L (21.0-32.0) Anion Gap 11 MEQ/L (5-15) Blood Urea Nitrogen 14 MG/DL (7-18) Creatinine 1.20 MG/DL (0.50-1.00) Estimat Glomerular Filtration 43 ML/MIN (>89) Rate Random Glucose 100 MG/DL (74-106) Calcium Level 7.7 MG/DL (8.5-10.1) Erythrocyte Sedimentation Rate GREATER THAN 140 mm/hr (0-30) C-Reactive Protein 35.90 MG/DL (0.00-0.30) Test 03/02/17 03/03/17 03/03/17 03/03/17 23:25 11:00 11:06 14:00 Vancomycin Level Trough 11.0 MCG/ML (5.0-10.0) Blood Gas Puncture Site LT RADIAL LT FEMORAL Blood Gas Patient Temperature 37.0 37.0 Blood Gas HCO3 18 mmol/L 16 mmol/L (22-26) (22-26) Blood Gas Base Excess -5.7 mmol/L -11.5 mmol/L (-2-2) (-2-2) Blood Gas Oxygen Saturation 90 % (90-100) 65 % (90-100) Arterial Blood pH 7.44 7.11 (7.380-7.420) (7.380-7.420) Arterial Blood Partial 27 mmHg (38-42) 54 mmHg (38-42) Pressure CO2 Arterial Blood Partial 59 mmHg 47 mmHg Pressure O2 (61-120) (61-120) Arterial Blood Oxygen Content 19.4 Vol % 9.4 Vol % (12.0-20.0) (12.0-20.0) Arterial Blood 1.2 % (0-4) 0.1 % (0-4) Carboxyhemoglobin Arterial Blood Methemoglobin 0.8 % (0-2) 1.6 % (0-2) Blood Gas Hemoglobin 15.4 G/DL 10.2 G/DL (12.0-16.0) (12.0-16.0) Oxygen Delivery Device BIPAP VENT Blood Gas Ventilator Setting IPAP10/EPAP5 AC 550/20/10 PEEP Blood Gas Inspired Oxygen 70 % 100 % Urine Eosinophils NONE SEEN /HPF (NONE SEEN) Urine Random Creatinine 97.5 MG/DL Urine Random Sodium 57 MEQ/L Test 03/03/17 03/03/17 03/03/17 03/03/17 15:07 15:10 15:30 17:02 White Blood Count 13.5 TH/MM3 (4.0-11.0) Red Blood Count 3.52 MIL/MM3 (4.00-5.30) Hemoglobin 10.4 GM/DL (11.6-15.3) Hematocrit 31.1 % (35.0-46.0) Mean Corpuscular Volume 88.6 FL (80.0-100.0) Mean Corpuscular Hemoglobin 29.6 PG (27.0-34.0) Mean Corpuscular Hemoglobin 33.5 % Concent (32.0-36.0) Red Cell Distribution Width 15.0 % (11.6-17.2) Platelet Count 368 TH/MM3 (150-450) Mean Platelet Volume 6.7 FL (7.0-11.0) Neutrophils (%) (Auto) 93.0 % (16.0-70.0) Lymphocytes (%) (Auto) 5.6 % (9.0-44.0) Monocytes (%) (Auto) 1.2 % (0.0-8.0) Eosinophils (%) (Auto) 0.1 % (0.0-4.0) Basophils (%) (Auto) 0.1 % (0.0-2.0) Neutrophils # (Auto) 12.5 TH/MM3 (1.8-7.7) Lymphocytes # (Auto) 0.8 TH/MM3 (1.0-4.8) Monocytes # (Auto) 0.2 TH/MM3 (0-0.9) Eosinophils # (Auto) 0.0 TH/MM3 (0-0.4) Basophils # (Auto) 0.0 TH/MM3 (0-0.2) CBC Comment DIFF FINAL Differential Comment Prothrombin Time 16.6 SEC (9.8-11.6) Prothromb Time International 1.5 RATIO Ratio Activated Partial 34.5 SEC Thromboplast Time (24.3-30.1) Fibrinogen GREATER THAN 860 mg/dL (227-377) Sodium Level 144 MEQ/L (136-145) Potassium Level 4.6 MEQ/L (3.5-5.1) Chloride Level 112 MEQ/L (98-107) Carbon Dioxide Level 18.8 MEQ/L (21.0-32.0) Anion Gap 13 MEQ/L (5-15) Blood Urea Nitrogen 26 MG/DL (7-18) Creatinine 1.10 MG/DL (0.50-1.00) Estimat Glomerular Filtration 48 ML/MIN (>89) Rate Random Glucose 268 MG/DL (74-106) Lactic Acid Level 4.1 mmol/L (0.4-2.0) Calcium Level 7.8 MG/DL (8.5-10.1) Phosphorus Level 4.9 MG/DL (2.5-4.9) Magnesium Level 1.9 MG/DL (1.5-2.5) Total Bilirubin 0.8 MG/DL (0.2-1.0) Aspartate Amino Transf 255 U/L (15-37) (AST/SGOT) Alanine Aminotransferase 101 U/L (10-53) (ALT/SGPT) Alkaline Phosphatase 301 U/L (45-117) Ammonia 110 MCMOL/L (11-32) Total Creatine Kinase 131 U/L (26-192) Creatine Kinase MB 2.6 NG/ML (0.5-3.6) Troponin I 0.66 NG/ML (0.02-0.05) Total Protein 5.5 GM/DL (6.4-8.2) Albumin 1.5 GM/DL (3.4-5.0) Blood Gas Puncture Site ART LINE ART LINE Blood Gas Patient Temperature 37.0 37.0 Blood Gas HCO3 18 mmol/L 14 mmol/L (22-26) (22-26) Blood Gas Base Excess -8.0 mmol/L -11.5 mmol/L (-2-2) (-2-2) Blood Gas Oxygen Saturation 86 % (90-100) 90 % (90-100) Arterial Blood pH 7.24 7.26 (7.380-7.420) (7.380-7.420) Arterial Blood Partial 44 mmHg (38-42) 33 mmHg (38-42) Pressure CO2 Arterial Blood Partial 62 mmHg 72 mmHg Pressure O2 (61-120) (61-120) Arterial Blood Oxygen Content 13.5 Vol % 13.8 Vol % (12.0-20.0) (12.0-20.0) Arterial Blood 0.8 % (0-4) 0.9 % (0-4) Carboxyhemoglobin Arterial Blood Methemoglobin 0.8 % (0-2) 1.1 % (0-2) Blood Gas Hemoglobin 11.1 G/DL 10.8 G/DL (12.0-16.0) (12.0-16.0) Oxygen Delivery Device VENTILATOR VENTILATOR Blood Gas Ventilator Setting 22/600/PEEP12 16/700/PEEP12 Blood Gas Inspired Oxygen 100 % 100 % Result Diagram: 03/03/17 1507 03/03/17 1510 Microbiology Microbiology Date/Time Procedure Status Source Growth 02/28/17 18:00 Urine Culture - Final Complete Urine Clean Catch Enterococcus Faecalis 03/02/17 21:40 Aerobic Blood Culture - Preliminary Resulted Blood Peripheral NO GROWTH IN 1 DAY 03/02/17 21:40 Anaerobic Blood Culture - Preliminary Resulted Blood Peripheral NO GROWTH IN 1 DAY 03/02/17 21:45 Legionella Antigen - Final Complete Urine Catheterized Urine PRESUMPTIVE NEGATIVE FOR LEGIONELLA P... 03/02/17 21:45 Streptococcus pneumoniae Antigen (M - Final Complete Urine Clean Catch PRESUMPTIVE NEGATIVE FOR STREPTOCOCCU... 03/02/17 21:49 Aerobic Blood Culture - Preliminary Resulted Blood Peripheral NO GROWTH IN 1 DAY 03/02/17 21:49 Anaerobic Blood Culture - Preliminary Resulted Blood Peripheral NO GROWTH IN 1 DAY Imaging Last Impressions Chest X-Ray 03/03/17 1526 Signed Impressions: Service Date/Time: February 15:31 - CONCLUSION: 1. Right IJ line distal tip is in the SVC. No pneumothorax is present. 2. Diffuse bilateral airspace consolidation remains present. Kirby Harris MD Renal Ultrasound 03/03/17 0000 Signed Impressions: Service Date/Time: February 08:23 - CONCLUSION: 1. Status post right nephrectomy. 2. Redemonstration of 2.4 x 2.0 x 1.9 cm cyst in the inferior pole the left kidney. 3. No renal calculi or obstructive uropathy. Jem Fletcher MD Head CT 02/28/17 0000 Signed Impressions: Service Date/Time: Tuesday, February 28, 2017 15:48 - CONCLUSION: 1. 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 No acute intracranial abnormality is identified. Cortes Lopez MD CT Angiography 02/28/17 0000 Signed Impressions: Service Date/Time: Tuesday, February 28, 2017 16:01 - CONCLUSION: 1. No pulmonary embolus identified. 2. 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 3. Diffuse interstitial fibrotic change with extensive opacification of the right upper lobe. Cortes Lopez MD Procedures 03/03 - Intubated. Patient/Family Conference Present at Family Conference: Son Kirby and his . Family Conference Time (mins): 60 Family Conference Location: Telephone Issues Discussed: * Palliative care role, purpose, approach * Additional medical, psychosocial, and spiritual history * Patients general health, functional status, and cognitive changes in the months leading up to the current hospitalization * Patient/family understanding of the current medical problems * Patient/family understanding of prognosis * Patients goals of care as best understood from advance directives and/or conversations and/or values * Current medical treatment options and benefits/burdens of those options * Likely scenarios comparing ongoing aggressive care with a transition to comfort measures only * Questions answered to the best of my ability * Palliative care contact information provided Discussed code status and they wish to continue FULL CODE status at this time, but are aware that patient's prognosis is very poor and may be imminent. Son stated he was aware that she might not live through the night. Assessment and Plan Disease Oriented Problem List: (1) Generalized weakness (2) Lactic acidosis (3) Sepsis (4) UTI (urinary tract infection) (5) COPD (chronic obstructive pulmonary disease) (6) Respiratory failure with hypoxia Symptom Scale: (1) Anxiety 0-10 Scale: Unable to quantify (2) Dyspnea and respiratory abnormalities 0-10 Scale: Unable to quantify Pertinent Non-Medical Issues Psychosocial: Born in [place], moved to [place] in 2014 to live with her son. 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 She is the oldest of 7 children and had 3 children, Ron (disabled with mental retardation), Davi and Kirby. Kirby states his brother Davi is the HCS and will bring in the form. Spiritual:Raised Tenriism, would like a nursing techn visit. Legal: Son Davi is reportedly the HCS with her son Kirby as alternate. Son is to bring form in. Ethical issues impacting care: Important Contacts Chucho Tomlinson - [phone] Son Kirby - [phone], cell [phone] Prognosis Her prognosis is very poor. She has end stage lung disease, pulmonary fibrosis with cardiac compromise, with multiple comorbidities and a recent trajectory of decline. Her condition declined rapidly today, resulting in a near fatal arrhythmia and respiratory arrest today. She is receiving multiple medications to include vasopressin, Epoprostenol, cisatracurium, neosynephrine, amiodarone, bicarbonate and multiple antibiotics requiring mechanical ventilation. She remains tachycardic, requiring hemodynamic support. Code Status: Full Code Plan PLAN: Legal decision maker: Reported to be her son, Davi, pending review of HCS/LW paperwork to be brought to the hospital in a.m. by sonDavi. Goals: Aggressive CODE STATUS: Full code SYMPTOMS: * Dyspnea - mechanically ventilated, not tachypneic on sedation. At risk for increased dyspnea with weaning due to her pulmonary fibrosis, history of PE, RAJESH lobectemy and end stage COPD. * Anxiety - currently sedated, but at risk for anxiety d/t intubation, SOB, air hunger, lung disease and sepsis. May need medication as sedation decreased. In summary, this is a critically ill 76 year old female with multiple comorbidities, now compromised by sepsis, intubated and sedated. Family meeting planned for a.m. to discuss goals once HCS paperwork has been reviewed. Palliative care will continue to follow the patient during hospital course as condition evolves, to assist patient/decision-maker with understanding of their medical conditions, weighing benefits/burdens of treatment options, for clarification of goals of treatment. Additionally will assist with any symptoms of palliative concern Thank you for the opportunity to participate in the care of Ms. Berg. Attestation To help prompt me to consider important information that might be impacting today's encounter and assessment, information from prior notes written by myself or my colleagues may have been "brought forward" into today's note. My signature on this note, however, is an attestation that I personally performed the exam, history, and/or decision-making noted today, and, unless otherwise indicated, the interactions with patient, family, and staff as well as the review of records all occurred today. I also attest that the listed assessment and stated plan reflect my best clinical judgment today based on the combination of historical information, prior notes, and today's exam/ interactions. When time spent is documented, it refers only to time spent today by the signer, or if indicated, combined time spent today by collaborating physician/nurse practitioner. Veda Betancourt Mar 03, 2017 6:07 pm
[2017-03-03] MEDS: SODIUM BICARBONATE 8.4% INJ 150 MEQ in WATER STERILE FOR INJ 850 ML IV SCH (18:56)
[2017-03-03] MEDS: VASOPRESSIN INJ 40 UNITS in DEXTROSE 5% IN WATER 100ML INJ 98 ML IV SCH ×2 (18:56)
[2017-03-03] MEDS: CHLORHEXIDINE 0.12% (ORAL KIT) 15 ML CUP MT SCH (20:00)
[2017-03-03] MEDS ORDERED: CHLORHEXIDINE 0.12% (ORAL KIT) 15 ML CUP MT SCH (20:00)
--- NOTE | 2017-03-03 20:46 | ECHRPT ---
Indication: S/P CARDIAC ARREST CONCLUSIONS Limited study. Normal left ventricular size. Wall thickness is normal. The left ventricular systolic function is very difficult to assess, possibly akwualnd-fj-njqdyzhn r educed with ejection fraction very roughly estimated at 35-40%. The septum appears to be sharan nor prateek; all other segments may be moderately to severely hypokinetic. Trivial pericardial effusion without evidence of tamponade. BP: 107 / 61 HR: Rhythm: MEASUREMENTS (Male / Female) Normal Values Technical Quality:Technically difficult study 2D ECHO LV Diastolic Diameter PLAX 5.1 cm 4.2 - 5.9 / 3.9 - 5.3 cm LV Systolic Diameter PLAX 4.3 cm IVS Diastolic Thickness 0.7 cm 0.6 - 1.0 / 0.6 - 0.9 cm LVPW Diastolic Thickness 1.2 cm 0.6 - 1.0 / 0.6 - 0.9 cm LV Relative Wall Thickness 0.4 FINDINGS LEFT VENTRICLE Normal left ventricular size. Wall thickness is normal. The left ventricular systolic function is very difficult to assess, possibly wqanbkiu-mj-kfegfkcq r educed with ejection fraction very roughly estimated at 35-40%. The septum appears to be sharan nor prateek; all other segments may be moderately to severely hypokinetic. PERICARDIUM Trivial pericardial effusion without evidence of tamponade. OTHER FINDINGS Large Pleural effusions. James Gómez MD (Electronically Signed) Final Date:03 March 2017 20:45
[2017-03-03] MEDS ORDERED: NOREPINEPHRINE 4 MG/D5W 250 ML IV PRN (21:00)
[2017-03-03] MEDS: INSULIN NovoLIN REGULAR SUPPLEMENTAL SCALE SQ SCH (22:09)
[2017-03-04] VITALS (35 sets, daily range): BP systolic 96–144; BP diastolic 64–94; PULSE 83–113; RESP 15–21; TEMP 98.2–99.1; O2SAT 94–98
[2017-03-04] MEDS: EPOPROSTENOL NEB SOLUTION 50 NG/KG/MIN 100 ML NEB SCH ×6 (00:31→17:28)
[2017-03-04] MEDS: SODIUM BICARBONATE 8.4% INJ 150 MEQ in WATER STERILE FOR INJ 850 ML IV SCH ×5 (00:32→23:44)
[2017-03-04] MEDS: INSULIN NovoLIN REGULAR SUPPLEMENTAL SCALE SQ SCH ×6 (00:43→20:13)
[2017-03-04] MEDS: CISATRACURIUM INJ 100 MG in SODIUM CHLOR 0.9% 250 ML INJ 240 ML IV SCH (00:46)
[2017-03-04] MEDS: VASOPRESSIN INJ 40 UNITS in DEXTROSE 5% IN WATER 100ML INJ 98 ML IV SCH ×2 (00:47)
[2017-03-04] MEDS: PHENYLEPHRINE INJ 160 MG in DEXTROSE 5% IN WATE 500 ML INJ 484 ML IV SCH ×2 (00:47)
[2017-03-04] MEDS: RESP: ALBUTEROL 2.5 MG/IPRATROPIUM 0.5 MG NEB (SCH) NEB ×6 (03:34→23:55)
[2017-03-04] MEDS: CHLORHEXIDINE GLUCONATE 2 % 1 PACK (2 CLOTHS)(taper/protocol) TOPICAL SCH (04:00)
[2017-03-04] MEDS: methylPREDNISolone SOD SUCC 40 MG/1 ML VIAL IV PUSH SCH ×3 (04:44→22:48)
[2017-03-04 05:41] LABS: AUTOMATED NEUTROPHIL # 9.3 TH/MM3 (1.8-7.7); BASOPHIL % 0.1 % (0.0-2.0); EOSINOPHIL % 0.2 % (0.0-4.0); HEMATOCRIT 27.7 % (35.0-46.0); LYMPH % 6.5 % (9.0-44.0); LYMPHOCYTE # 0.7 TH/MM3 (1.0-4.8); MEAN CELL VOLUME 88.2 FL (80.0-100.0); MEAN CORPUSCULAR HEMOGLOBIN 29.5 PG (27.0-34.0); MEAN CORPUSCULAR HGB CONC 33.4 % (32.0-36.0); MONO % 1.6 % (0.0-8.0); NEUT % 91.6 % (16.0-70.0); PLATELET COUNT 186 TH/MM3 (150-450); RED BLOOD COUNT 3.14 MIL/MM3 (4.00-5.30); RED CELL DISTRIBUTION WIDTH 15.6 % (11.6-17.2); WHITE BLOOD COUNT 10.2 TH/MM3 (4.0-11.0)
[2017-03-04 05:42] LABS: HEMO FLAGS DIFF FINAL
[2017-03-04 06:00] LABS: BLOOD GAS BASE EXCESS -11.8 mmol/L (-2-2); BLOOD GAS CARBOXYHEMOGLOBIN 0.6 % (0-4); BLOOD GAS HCO3 15 mmol/L (22-26); BLOOD GAS METHEMOGLOBIN 1.5 % (0-2); BLOOD GAS O2 HGB SATURATION 97 % (90-100); BLOOD GAS OXYGEN CONTENT 12.9 Vol % (12.0-20.0); BLOOD GAS PCO2 38 mmHg (38-42); BLOOD GAS PO2 181 mmHg (61-120); BLOOD GAS TOTAL HGB 9.2 G/DL (12.0-16.0); CRITICAL VALUE YES; DRAW SITE ART LINE; FIO2 80 %; OXYGEN DEVICE VENTILATOR; STAT NO; VENT SETTINGS PRVC/AC
[2017-03-04 06:02] LABS: BICARBONATE 17.2 MEQ/L (21.0-32.0); CALCIUM-PROTEIN CORRECTED 7.5 MG/DL (8.5-10.1); MAGNESIUM 2.1 MG/DL (1.5-2.5); POTASSIUM 5.2 MEQ/L (3.5-5.1); TOTAL BILIRUBIN ADULT 1.4 MG/DL (0.2-1.0)
[2017-03-04 06:20] LABS: CKMB 31.6 NG/ML (0.5-3.6)
--- NOTE | 2017-03-04 07:05 | HHI.CCPN ---
Subjective Remarks/Hospital Course 76-year-old female. Date of admission 02/27/2017. Date of consultation 03/03/2017. Past medical history includes underlying emphysema, COPD oxygen dependent, history of pulmonary wasn't on chronic Xarelto, hypertension, dyslipidemia, peripheral neuropathy, history of left upper lobe lobectomy, bilateral mastectomy for breast cancer in her right nephrectomy for kidney cancer. In December, patient had a left frontal meghan hole/skull biopsy. Patient originally presented to [facility] ED after status post fall at home patient difficulty getting up. Daughter activated EMS. She was noted of a UTI and started on antibiotics. She's been seen by Dr. Strickland for abnormal EKG. Troponin 0.02. Recommend echocardiogram. These results are currently pending. A volumetric Presley/infectious disease. Her urine did grow out enterococcus faecalis which she is currently on following a bicycle Levaquin, Azactam, Flagyl and vancomycin.. Also seen in consultation by Dr. Jennings DVT abnormal CTA's 02/28 which revealed right upper lobe opacification/fibrosis, 2.3 x 2 cm left perihilar lymph node in hepatic cyst. Recommend aggressive pulmonary including duo nebs 4 times a day, Pulmicort twice a day and Solu-Medrol 40 IV every 8 hours on BiPAP management. Due to increasing oxygen requirements, we are asked to evaluate the patient. Patient is currently a full code. Subjective 03/04: Intubated at 1:30 yesterday afternoon. Wide complex tachycardia/V. tach reported by Dr. Whitlock/ED physician post intubation requiring CPR around 5 minutes with 2 mg epinephrine, chest compressions and 20 J the ER and reported as cardioversion however was likely defibrillation. Regardless, post code patient was awake and following commands therefore targeted temperature management was not instituted. Noted to have elevated troponin, shock liver and no urine output overnight. Oxygen requirements decreased from 100% to 70% this AM. Discuss with both sons this a.m. including Kirby here in [place] and son in [place].. Objective Vital Signs Date Time Temp Pulse Resp B/P Pulse Ox O2 Delivery O2 Flow Rate FiO2 03/04/17 06:05 70 03/04/17 06:03 96 03/04/17 06:00 86 03/04/17 06:00 16 100/66 03/04/17 04:00 99.1 03/03/17 12:00 Bi-Pap 03/03/17 07:50 15.00 Intake and Output 03/03/17 03/03/17 03/04/17 08:00 16:00 00:00 Intake Total 1190 ml 1553 ml 2801 ml Output Total 850 ml 550 ml Balance 340 ml 1553 ml 2251 ml Result Diagram: 03/04/17 0526 03/04/17 0526 Other Results Microbiology Date/Time Procedure Status Source Growth 03/02/17 21:49 Aerobic Blood Culture - Preliminary Resulted Blood Peripheral NO GROWTH IN 1 DAY 03/02/17 21:49 Anaerobic Blood Culture - Preliminary Resulted Blood Peripheral NO GROWTH IN 1 DAY 03/02/17 21:45 Streptococcus pneumoniae Antigen (M - Final Complete Urine Clean Catch PRESUMPTIVE NEGATIVE FOR STREPTOCOCCU... 03/02/17 21:45 Legionella Antigen - Final Complete Urine Catheterized Urine PRESUMPTIVE NEGATIVE FOR LEGIONELLA P... 02/28/17 18:00 Urine Culture - Final Complete Urine Clean Catch Enterococcus Faecalis 02/27/17 10:00 Influenza Types A,B Antigen (АНДРЕЙ) - Final Complete Nasal Aspirate NEGATIVE FOR FLU A AND B ANTIGEN.... Imaging Last Impressions Chest X-Ray 03/03/17 1526 Signed Impressions: Service Date/Time: February 15:31 - CONCLUSION: 1. Right IJ line distal tip is in the SVC. No pneumothorax is present. 2. Diffuse bilateral airspace consolidation remains present. Kirby Harris MD Renal Ultrasound 03/03/17 0000 Signed Impressions: Service Date/Time: February 08:23 - CONCLUSION: 1. Status post right nephrectomy. 2. Redemonstration of 2.4 x 2.0 x 1.9 cm cyst in the inferior pole the left kidney. 3. No renal calculi or obstructive uropathy. Jem Fletcher MD Head CT 02/28/17 0000 Signed Impressions: Service Date/Time: Tuesday, February 28, 2017 15:48 - CONCLUSION: 1. 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 No acute intracranial abnormality is identified. Cortes Lopez MD CT Angiography 02/28/17 0000 Signed Impressions: Service Date/Time: Tuesday, February 28, 2017 16:01 - CONCLUSION: 1. No pulmonary embolus identified. 2. 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 3. Diffuse interstitial fibrotic change with extensive opacification of the right upper lobe. Cortes Lopez MD Objective Remarks GENERAL: 76-year-old female, critically ill currently orotracheally intubated SKIN: Warm and dry we'll perfused HEAD: Status post meghan hole left frontal. Well-healed. EYES: Pupils equal and round about 4 mm bilaterally and reactive to 3 mm. No scleral icterus. No injection or drainage. ENT: No nasal bleeding or discharge. Mucous membranes pink and moist. NECK: Trachea midline. No JVD. CARDIOVASCULAR: Regular rate and rhythm. S1, S2 no S4. Without murmur RESPIRATORY: Fine crackles appreciated throughout right and left anterior and posterior lung oliver. Positive end extremity wheezes GASTROINTESTINAL: Abdomen soft, non-tender, obese. Hypoactive bowel sounds are appreciated MUSCULOSKELETAL: Extremities with trace to 1+ lower extremity edema. No obvious deformities. NEUROLOGICAL: Currently on Nimbex drip and paralyzed. Pupils reactive as above. Fsjhg-ac-knjo 1 out of 4. Again awake and following commands post code Procedures None Urinary Catheter: Yes Assessment to: Continue Bella insert reason: Prolonged Immobilization Vascular Central Line Catheter: Yes Assessment to: Continue Date of Insertion: Mar 03, 2017 Line: Central Venous Catheter Side: Right Location: Internal, Jugular A/P Assessment and Plan Neuro/Psych: Peripheral neuropathy Chronic codeine use Status post left frontal meghan hole/biopsy December/2016 Patient is currently on propofol at at 10 mcg/kg/m/fentanyl drips 25 mg an hour for sedation/analgesia while intubated On Nimbex drip at 1.5 mcg/kg/m to maintain trial for 2 out of 4 We will hold Neurontin 300 mg by mouth twice a day for neuropathy No indication for daily sedation vacation due to underlying tenuous pulmonary status Again, patient was awake and following commands post code 03/03 so TTM not indicated for V. tach arrest CT head 03/11 revealed status post left frontal meghan hole. No acute intracranial findings specifically no intracranial masses CV: History of hypertension Dyslipidemia Right bundle-branch block Status post respiratory arrest leading to cardiac arrest Elevated troponin Lactic acidosis Evaluated by Dr. Aceves/cardiology 02/28. -Recommended 2-D echocardiogram. EF 65-70%. No regional wall motion abnormality. Mild TR. 2-D echocardiograms postcode revealed EF 35-40%. Moderate to severe hypokinesis. We will hold Pravachol 80 mg by mouth daily for dyslipidemia in light of elevated transaminases. On simvastatin 80 mg by mouth daily at home. Currently on sterile water with 3 ampules of sodium bicarbonate 150 cc an hour Currently on Danyel-Synephrine 150 g per min and vasopressin 0.04 units per minute Serial lactates until clear. Noted in shock liver therefore lactates will be slow to clear Originally on amiodarone which has been discontinued due to elevated liver function tests We'll place on heparin drip for non-STEMI after placement dialysis catheter Resp: Type I respiratory failure likely secondary to diffusion abnormality/pneumonia History of lung cancer status post left upper lobe lobectomy COPD oxygen dependent Prior tobaccoism History of pulmonary embolism Currently on PRVC /1.10/24/69 On Flolan 8 mg/hr - (50) Duo nebs every 4 hours with albuterol every 2 hours when necessary breakthrough Pulmicort 0.5/2 1 inhalation twice a day Continue Solu-Medrol 40 mg IV every 3 hours Seen by pulmonology/Dr. Jennings On Brovana 15 g inhalation twice a day at home for COPD maintenance CTA chest 02/28 revealed right upper lobe opacification/fibrotic disease, 2.3 x 2.0 centimeter left hilar lymph node. Negative VQ mismatch with no signs of pulmonary embolism on CTA chest. Noted on echocardiogram possible large pleural effusion. No effusion seen on CTA 02/28. Will re-eval with ultrasound GI: Elevated transaminases likely shock liver Hypoalbuminemia Currently nothing by mouth with OG tube to low intermittent wall suction AST 16,235. Her ALT greater than 5000. Elevated alkaline phosphatase. Avoid hepatotoxic medication Protonix for GI prophylaxis Gretel-Colace for bowel regimen Check ammonia level : Bella catheter for accurate I's and O's in a critically ill patient Endo: Sliding-scale insulin with Accu-Cheks to maintain euglycemia/low regimen Renal: Acute kidney injury History of right nephrectomy Anuria 12 hours Creatinine currently 2.4 Monitor urine output Accurate I's and O's Renal ultrasound revealed status post right nephrectomy. 2.42.0 x1.9 cm left renal cyst inferior pole. Negative urine eosinophils. Patient will need renal replacement therapy. Hemodialysis catheter to be placed. We'll consult nephrology. Heme: Anemia/normocytic Chronic Xarelto use with history of pulmonary embolism Coagulopathy secondary to shock liver Home medication Xarelto 20 by mouth daily currently on hold Not requiring transfusion of blood products at this time Monitor CBC daily and coags ID: E faecalis UTI Initially treated with ciprofloxacin, vancomycin and aztreonam. Currently on Levaquin, Flagyl and vancomycin Noted ESR 140. CRP 35 Pertinent cultures 03/02 - blood cultures 2 - no growth 03/02 - urine strep/Legionella pending 02/28 - urine - E faecalis 02/27 - blood cultures 2 - no growth Influenza negative FEN: Hyperphosphatemia Hyperkalemia Replace electrolytes as clinically indicated Will start PhosLo 667 mg tid Consider starting Nepro trickle feeds today MSK Osteoporosis Obesity BMI greater than 30 Continue Os-Henok 500 mg by mouth daily Continue vitamin B-12 and multivitamin daily Access -Right IJ CVL placed 03/03 day #2 Left femoral arterial line placed 03/03 day #2 Prophylaxis - GI - Protonix - DVT - SCD/Xarelto on hold. 45 minutes critical care time excluding procedures: Discussed with son Kirby and son in [place] today. Patient remains full code. Patient expressed wishes for no tracheostomy prior to intubation but short-term intubation in full CODE STATUS in the interim. Sons aware that patient in multisystem organ failure including renal failure, shock liver, elevated troponin, respiratory failure with very poor prognostication. Patient is critically ill requiring adjustment vasopressors and likely LICENSED DIRECT ENTRY MIDWIFE today Cooper Correa MD Mar 04, 2017 07:05
[2017-03-04] MEDS ORDERED: CALCIUM GLUCONATE 10% 1 GM/10 ML VIAL SLOW IVP ONE (07:15)
[2017-03-04] MEDS ORDERED: SODIUM BICARBONATE 8.4% SOLN 50 MEQ/50 ML VIAL SLOW IVP ONE (07:15)
[2017-03-04] MEDS ORDERED: SODIUM POLYSTYRENE SULFONATE SUSP 15 GM/60 ML CUP PO ONE (07:15)
[2017-03-04] MEDS ORDERED: HEPARIN-D5W INJ 250 ML IV SCH (07:30)
[2017-03-04 07:54] LABS: CRITICAL VALUE YES
[2017-03-04] MEDS: CHLORHEXIDINE 0.12% (ORAL KIT) 15 ML CUP MT SCH ×2 (08:00→20:13)
[2017-03-04 08:04] LABS: APTT (PATIENT) 38.1 SEC (24.3-30.1); INTERNATIONAL NORMALIZED RATIO 2.4 RATIO; PROTHROMBIN TIME - PATIENT 27.1 SEC (9.8-11.6)
--- NOTE | 2017-03-04 08:12 | PD.PROCEDR ---
Procedure Note Procedure DATE: 03/04/2017 HEMODIALYSIS CATHETER PLACEMENT: Left internal jugular vein. Ultrasound-guided INDICATION: Hemodialysis access CONSENT Informed consent for procedure was obtained from angel Orr. DESCRIPTION OF THE PROCEDURE The patient was placed in supine position. The skin was cleansed with Chloraprep. Additional barrier precautions included large sterile drape, sterile gloves, sterile gown, face mask, and hat. 1 % lidocaine was used for local anesthesia. Under direct ultrasound guidance and on initial attempt, the vein was accessed with an introducer needle. The guide wire was advanced and the tract was dilated 3. Using Seldinger technique a 11.5 Tajik 20 cm dual- lumen hemodialysis catheter was advanced to a depth of 20 centimeters. The guide wire was removed. All ports had good return of dark venous blood and flushed easily with saline. The central line was secured with 2.0 silk. A sterile dressing with antibiotic disc was applied. ESTIMATED BLOOD LOSS: Minimal COMPLICATIONS: No apparent complications. STAT chest x-ray pending at time of dictation Cooper Correa MD Mar 04, 2017 08:12
[2017-03-04] MEDS: RESP: BUDESONIDE 0.25 MG/2 ML NEB NEB SCH ×2 (08:14→19:13)
[2017-03-04] MEDS ORDERED: HEPARIN SODIUM - IV 2,000 UNITS/2 ML VIAL IV FLUSH PRN (08:15)
[2017-03-04] MEDS ORDERED: SODIUM CHLORIDE 0.9% FLUSH 10 ML FLUSH IVF PRN (08:15)
[2017-03-04] MEDS: metroNIDAZOLE 500 MG INJ 100 ML IV SCH ×3 (08:38→23:43)
[2017-03-04] MEDS: SODIUM CHLORIDE 0.9% FLUSH 10 ML FLUSH IV FLUSH SCH ×2 (08:39→22:48)
[2017-03-04] MEDS: MULTIVITAMIN TAB PO SCH (08:40)
[2017-03-04] MEDS: CYANOCOBALAMIN 1,000 MCG TAB PO SCH (08:40)
[2017-03-04] MEDS: SODIUM CHLORIDE 0.9% FLUSH 10 ML FLUSH IVF SCH (08:40)
[2017-03-04] MEDS: DOCUSATE SODIUM 50 MG/SENNA 8.6 MG TAB PO SCH ×2 (08:40→22:48)
[2017-03-04] MEDS: CALCIUM/VITAMIN D 250 MG/125 U TAB PO SCH (08:42)
--- NOTE | 2017-03-04 08:52 | RADRPT ---
EXAM DATE/TIME: 03/04/2017 08:35 [facility] COMPARISON: CHEST SINGLE AP, March 03, 2017, 15:31. INDICATIONS : Central line placment MEDICAL HISTORY : Carcinoma, lung. Chronic obstructive pulmonary disease. Hypercholesterolemia. Renal carcinoma SURGICAL HISTORY : Lobectomy. Mastectomy, bilateral. ENCOUNTER: Subsequent ACUITY: 2 days PAIN SCORE: Non-responsive. LOCATION: Bilateral chest FINDINGS: Stable ETT, right IJ central line, and nasoenteric catheter with tip in the stomach. Interval placeme nt of apparent left IJ Vas-Cath with tip at the confluence of the brachiocephalic and SVC. There cont inued bilateral patchy diffuse airspace disease and pulmonary vas are congestion. Cardiac silhouette remains enlarged. Remainder of the exam is unchanged. CONCLUSION: 1. Left IJ Vas-Cath tip at the confluence of the SVC and brachiocephalic. No pneumothorax. 2. Cardiomegaly with pulmonary vascular congestion. 3. Stable diffuse patchy bilateral airspace disease. Jem Fletcher MD on March 04, 2017 at 8:46 Board Certified Radiologist. This report was verified electronically.
--- NOTE | 2017-03-04 09:37 | RADRPT ---
EXAM DATE/TIME: 03/04/2017 08:35 [facility] COMPARISON: No previous studies available for comparison. INDICATIONS : Confirm NG tube placement MEDICAL HISTORY : Carcinoma, lung. Renal carcinoma SURGICAL HISTORY : Hysterectomy. Appendectomy. ENCOUNTER: Subsequent ACUITY: 2 days PAIN SCORE: Non-responsive. LOCATION: Abdomen FINDINGS: Nasogastric tube tip projects over the stomach. Endotracheal tube tip in satisfactory position. Right central line and left Vas-Cath tip in superior vena cava. Basilar airspace disease present bilateral ly. CONCLUSION: 1. Nasogastric tube tip projects over the mid stomach. Aurelio Aceves MD on March 04, 2017 at 9:33 Board Certified Radiologist. This report was verified electronically.
[2017-03-04 10:31] LABS: POTASSIUM 4.5 MEQ/L (3.5-5.1)
[2017-03-04] MEDS: CALCIUM ACETATE 667 MG CAP PO SCH ×3 (13:00→17:17)
--- NOTE | 2017-03-04 13:25 | HHI.IDPN ---
Subjective Subjective Remarks The patient is a 76-year-old female who presented to the emergency department with complaint of generalized weakness. She states that she went to the bathroom yesterday, but was not able to get up off the toilet because she felt so weak. Her [id number] helped her up and called paramedics. The patient has COPD and reports chronic dyspnea, but no worse recently. She has cough that is minimally productive. She had fever overnight with night sweats, but feels much better this morning. She denies chest pain. She had an episode of nausea yesterday, but that has resolved. No diarrhea or constipation. She denies dysuria. She reportedly has had multiple hospital admissions and ER visits in the past few months. She reports having extensive workup in December including a brain biopsy. Those records are not available at this time. Notes reviewed D/W RN Had respiratory arrest and arrhythmia yesterday Intubated and resuscitated On pressors On diprivan and nimbex Temps better, last fever 03/02 On vent, FiO2 0.7, PEEP 12 Low UO, on sodium bicarb Vascath placed LIJ TLC RIJ, A line L groin Not a lot of ET secretions - color clear Palliative medicine evaluating patient Previous echo normal EF, repeat echo post code, hypokinesis and decreased LV 35 % Troponins elevated Creatinine elevated, LFT in thousands BC negative UA (+), UC with Enterococcus ESR >140 CRP 35 CXR with fibrosis Legio and Pneumo Ag negative Antibiotics Levaquin Vancomycin Lines RIJ TLC LIJ vascath Past Medical History History breast cancer History of renal cancer History of lung cancer Hyperlipidemia COPD History of DVT, ?PE Past Surgical History Partial lobectomy of the left lung Right nephrectomy Hysterectomy Appendectomy Tonsillectomy Bilateral breast surgery for cancer in the 1970s Allergies: Coded Allergies: Penicillin (Verified Allergy, Severe, Hives, 03/03/17) Has taken Keflex without any problem Objective . Vital Signs Date Time Temp Pulse Resp B/P Pulse Ox O2 Delivery O2 Flow Rate FiO2 03/04/17 11:00 96 16 124/80 97 03/04/17 10:45 98 70 03/04/17 10:00 98.9 91 16 125/79 96 03/04/17 10:00 91 03/04/17 09:00 98.7 93 16 131/82 95 03/04/17 08:15 96 70 6/23/17 08:00 83 03/04/17 08:00 70 03/04/17 08:00 87 16 103/68 97 03/04/17 07:00 98.7 83 16 110/73 97 03/04/17 06:05 70 03/04/17 06:03 96 70 03/04/17 06:00 86 03/04/17 06:00 84 16 100/66 96 03/04/17 05:56 80 03/04/17 05:00 86 15 100/66 97 03/04/17 04:05 96 80 03/04/17 04:00 88 03/04/17 04:00 85 03/04/17 04:00 99.1 88 16 96/64 96 03/04/17 03:00 90 15 98/66 96 03/04/17 02:00 96 03/04/17 02:00 96 15 114/76 96 03/04/17 01:47 96 85 03/04/17 01:00 96 15 116/78 97 03/04/17 00:00 98.6 102 21 128/84 97 03/04/17 00:00 102 03/04/17 00:00 90 03/03/17 23:40 97 90 03/03/17 23:00 102 16 124/82 97 03/03/17 22:10 98 100 03/03/17 22:00 100 21 126/86 98 03/03/17 22:00 100 03/03/17 21:00 50 26 112/76 98 03/03/17 20:00 99.2 98 27 80/56 96 03/03/17 20:00 98 03/03/17 19:51 97 100 03/03/17 19:00 104 27 78/52 95 17 18:45 108 26 82/54 96 17 18:30 110 26 84/54 95 17 18:15 114 26 88/58 95 17 18:00 118 26 92/62 94 17 17:45 120 27 100/66 93 17 17:30 124 27 106/68 92 17 17:15 126 27 110/72 91 03/03/17 17:00 128 26 120/76 90 17 16:47 91 100 03/03/17 16:45 126 27 124/78 90 03/03/17 16:30 120 26 116/76 93 03/03/17 16:15 128 32 86/58 87 03/03/17 16:00 99.1 144 23 106/72 78 03/03/17 15:45 150 23 112/78 85 03/03/17 15:30 136 26 132/84 87 03/03/17 15:15 138 23 104/58 91 03/03/17 15:00 150 03/03/17 15:00 140 31 128/80 87 03/03/17 14:45 144 21 105/69 89 03/03/17 14:45 88 100 03/03/17 14:30 142 18 111/61 82 03/03/17 14:16 144 26 131/88 72 03/03/17 14:13 138 31 140/94 73 03/03/17 14:11 142 24 131/88 73 03/03/17 14:06 132 26 136/93 70 03/03/17 14:01 124 26 149/92 66 03/03/17 13:55 134 20 162/102 63 03/03/17 13:53 152 25 184/109 70 03/03/17 13:40 148 15 170/99 53 03/03/17 13:30 122 30 158/93 80 03/03/17 13:20 122 28 119/78 77 03/03/17 03/03/17 03/04/17 15:00 23:00 07:00 Intake Total 1553 ml 2801 ml 1516 ml Output Total 550 ml 0 ml Balance 1553 ml 2251 ml 1516 ml Intake Oral 100 ml IV Total 1453 ml 2801 ml 1516 ml Output Urine Total 550 ml 0 ml . Laboratory Tests Test 03/02/17 03/03/17 03/04/17 21:40 15:07 05:26 Erythrocyte Sedimentation Rate GREATER THAN 140 mm/hr White Blood Count 13.5 TH/MM3 10.2 TH/MM3 Red Blood Count 3.52 MIL/MM3 3.14 MIL/MM3 Hemoglobin 10.4 GM/DL 9.3 GM/DL Hematocrit 31.1 % 27.7 % Mean Corpuscular Volume 88.6 FL 88.2 FL Mean Corpuscular Hemoglobin 29.6 PG 29.5 PG Mean Corpuscular Hemoglobin 33.5 % 33.4 % Concent Red Cell Distribution Width 15.0 % 15.6 % Platelet Count 368 TH/MM3 186 TH/MM3 Mean Platelet Volume 6.7 FL 7.3 FL Neutrophils (%) (Auto) 93.0 % 91.6 % Lymphocytes (%) (Auto) 5.6 % 6.5 % Monocytes (%) (Auto) 1.2 % 1.6 % Eosinophils (%) (Auto) 0.1 % 0.2 % Basophils (%) (Auto) 0.1 % 0.1 % Neutrophils # (Auto) 12.5 TH/MM3 9.3 TH/MM3 Lymphocytes # (Auto) 0.8 TH/MM3 0.7 TH/MM3 Monocytes # (Auto) 0.2 TH/MM3 0.2 TH/MM3 Eosinophils # (Auto) 0.0 TH/MM3 0.0 TH/MM3 Basophils # (Auto) 0.0 TH/MM3 0.0 TH/MM3 CBC Comment DIFF FINAL DIFF FINAL Differential Comment Laboratory Tests Test 03/02/17 03/03/17 03/03/17 03/03/17 21:40 15:10 18:46 21:02 C-Reactive Protein 35.90 MG/DL Sodium Level 144 MEQ/L Potassium Level 4.6 MEQ/L Chloride Level 112 MEQ/L Carbon Dioxide Level 18.8 MEQ/L Anion Gap 13 MEQ/L Blood Urea Nitrogen 26 MG/DL Creatinine 1.10 MG/DL Estimat Glomerular Filtration 48 ML/MIN Rate Random Glucose 268 MG/DL Lactic Acid Level 4.1 mmol/L 7.0 mmol/L 8.4 mmol/L Calcium Level 7.8 MG/DL Phosphorus Level 4.9 MG/DL Magnesium Level 1.9 MG/DL Total Bilirubin 0.8 MG/DL Aspartate Amino Transf 255 U/L (AST/SGOT) Alanine Aminotransferase 101 U/L (ALT/SGPT) Alkaline Phosphatase 301 U/L Ammonia 110 MCMOL/L Total Creatine Kinase 131 U/L Creatine Kinase MB 2.6 NG/ML Troponin I 0.66 NG/ML 3.96 NG/ML Total Protein 5.5 GM/DL Albumin 1.5 GM/DL Test 03/04/17 03/04/17 03/04/17 02:22 05:26 10:10 Lactic Acid Level 8.1 mmol/L 8.5 mmol/L 8.8 mmol/L Troponin I 13.10 NG/ML 16.10 NG/ML 25.50 NG/ML Sodium Level 138 MEQ/L Potassium Level 5.2 MEQ/L 4.5 MEQ/L Chloride Level 102 MEQ/L Carbon Dioxide Level 17.2 MEQ/L Anion Gap 19 MEQ/L Blood Urea Nitrogen 40 MG/DL Creatinine 2.40 MG/DL Estimat Glomerular Filtration 20 ML/MIN Rate Random Glucose 244 MG/DL Calcium Level 6.5 MG/DL Protein Corrected Calcium 7.5 MG/DL Phosphorus Level 8.1 MG/DL Magnesium Level 2.1 MG/DL Total Bilirubin 1.4 MG/DL Aspartate Amino Transf 02863 U/L (AST/SGOT) Alanine Aminotransferase 5054 U/L (ALT/SGPT) Alkaline Phosphatase 301 U/L Total Creatine Kinase 788 U/L Creatine Kinase MB 31.6 NG/ML Creatine Kinase MB % 4.0 % Total Protein 5.1 GM/DL Albumin 2.1 GM/DL Microbiology Date/Time Procedure Status Source Growth 03/02/17 21:40 Aerobic Blood Culture - Preliminary Resulted Blood Peripheral NO GROWTH IN 2 DAYS 03/02/17 21:40 Anaerobic Blood Culture - Preliminary Resulted Blood Peripheral NO GROWTH IN 2 DAYS 03/02/17 21:45 Legionella Antigen - Final Complete Urine Catheterized Urine PRESUMPTIVE NEGATIVE FOR LEGIONELLA P... 03/02/17 21:45 Streptococcus pneumoniae Antigen (M - Final Complete Urine Clean Catch PRESUMPTIVE NEGATIVE FOR STREPTOCOCCU... 03/02/17 21:49 Aerobic Blood Culture - Preliminary Resulted Blood Peripheral NO GROWTH IN 2 DAYS 03/02/17 21:49 Anaerobic Blood Culture - Preliminary Resulted Blood Peripheral NO GROWTH IN 2 DAYS Imaging Chest X-Ray 03/04/17 0809 Signed Impressions: Service Date/Time: Saturday, March 04, 2017 08:35 - CONCLUSION: 1. Left IJ Vas-Cath tip at the confluence of the SVC and brachiocephalic. No pneumothorax. 2. Cardiomegaly with pulmonary vascular congestion. 3. Stable diffuse patchy bilateral airspace disease. Jem Fletcher MD Abdomen X-Ray 03/04/17 0000 Signed Impressions: Service Date/Time: Saturday, March 04, 2017 08:35 - CONCLUSION: 1. Nasogastric tube tip projects over the mid stomach. Aurelio Aceves MD Chest X-Ray 03/03/17 1526 Signed Impressions: Service Date/Time: February 15:31 - CONCLUSION: 1. Right IJ line distal tip is in the SVC. No pneumothorax is present. 2. Diffuse bilateral airspace consolidation remains present. Kirby Harris MD Chest X-Ray 03/03/17 0600 Signed Impressions: Service Date/Time: February 05:48 - CONCLUSION: Right greater than left airspace disease. Left consolidation is slightly worse in the interim. Kirby Chadwick MD Renal Ultrasound 03/03/17 0000 Signed Impressions: Service Date/Time: February 08:23 - CONCLUSION: 1. Status post right nephrectomy. 2. Redemonstration of 2.4 x 2.0 x 1.9 cm cyst in the inferior pole the left kidney. 3. No renal calculi or obstructive uropathy. Jem Fletcher MD Chest X-Ray 03/03/17 0000 Signed Impressions: Service Date/Time: February 13:58 - CONCLUSION: 1. Endotracheal tube and nasogastric tube in satisfactory position. 2. Underlying pulmonary fibrosis with new bilateral airspace disease that has worsened over the last 2 days. Differential diagnosis includes edema and infection. Aurelio Aceves MD Chest X-Ray 03/03/17 0600 Signed Impressions: Service Date/Time: February 05:48 - CONCLUSION: Right greater than left airspace disease. Left consolidation is slightly worse in the interim. Kirby Chadwick MD Renal Ultrasound 03/03/17 0000 Signed Impressions: Service Date/Time: February 08:23 - CONCLUSION: 1. Status post right nephrectomy. 2. Redemonstration of 2.4 x 2.0 x 1.9 cm cyst in the inferior pole the left kidney. 3. No renal calculi or obstructive uropathy. Jem Fletcher MD Head CT 02/28/17 0000 Signed Impressions: Service Date/Time: Tuesday, February 28, 2017 15:48 - CONCLUSION: 1. 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 No acute intracranial abnormality is identified. Cortes Lopez MD CT Angiography 02/28/17 0000 Signed Impressions: Service Date/Time: Tuesday, February 28, 2017 16:01 - CONCLUSION: 1. No pulmonary embolus identified. 2. 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 3. Diffuse interstitial fibrotic change with extensive opacification of the right upper lobe. Cortes Lopez MD Physical Exam GENERAL: Obese CF, sedated on the vent. SKIN: Cool and dry. No rash HEAD: Atraumatic. Normocephalic. No temporal or scalp tenderness. EYES: Pupils equal round and reactive. No scleral icterus. No injection or drainage. ENT: Nose without bleeding, purulent drainage. Orally intubated. NECK: Lines in place, no evidence of infection CARDIOVASCULAR: Regular rate and rhythm without murmurs, gallops, or rubs. RESPIRATORY: Decreased breath sounds throughout both lung oliver GASTROINTESTINAL: Abdomen soft, nondistended, no reaction to deep palpation. She has a scar in her right abdomen with an incisional hernia that is reducible. MUSCULOSKELETAL: Mild pedal edema, cool feet with mottling. NEUROLOGICAL: Sedated PSYCH: Unable to assess : Bella in place, with some sediment in tubing. LINE: NO evidence of infection Assessment & Plan Remarks IMPRESSION Sepsis, with fevers, temps better - has Enterococcal UTI; no hydro on L kidney; previous R nephrectomy - has SOB, has COPD and fibrosis, not C/O much of cough or congestion, ? inflammatory vs infection - BC have been negative Respiratory failure - has underlying O2 dependent COPD, PF on CT, ?PNA + CHF S/P arrest, ?ND - has MOSF post arrest Known COPD Hx multiple CA - breast CA, R kidney and L lung Allergy to PCN, tolerates Cephalosporins RECOMMENDATION Continue Vancomycin Continue Levauin Palliative medicine evaluating patient and goals of Rx Follow C/S Will get sputum G/S C/S Follow temps Monitor progress Will follow Prognosis poor, has MOSF D/W Larissa Aldrich MD Mar 04, 2017 13:24
--- NOTE | 2017-03-04 14:04 | HHI.HCPN ---
Reason for visit a. To assist with evaluation and management of symptoms including: dyspnea , anxiety, pain b. To assist medical decision maker(s) with: better understanding of current medical conditions; weighing benefits/burdens of medical treatment options; making medical treatment decisions. Subjective/Interval History 76-year-old female intubated, sedated, now status post Vas-Cath placement for UF/HD. She remains critically ill, on hemodynamic and respiratory support in multisystem organ failure status post cardiac arrest, under the management of critical care medicine. Vital signs: Blood pressure 124/80, heart rate 96, respiratory rate 16, oxygen saturation 97% on 70% FiO2, afebrile. Laboratory studies-white blood cells 10.2 , hemoglobin 9.3, hematocrit 27.7, platelets 186, prothrombin time 27.1, INR 2.4 (not on Coumadin) APTT 38.1, fibrinogen greater than 860, sodium 138 potassium 5.2, chloride 102, carbon dioxide 17.2, BUN 40, creatinine 2.40, lactic acid 8.1, 8.5, 8.8, troponin 0.66, 3.96, 13.1, 16.10, 25.50, ABG pH 7.21 , HCO3 15, base excess -11.8, PCO2 38, PO2 181, oxygen saturation 97% on 80% FiO2 ventilator mode PRVC/AC. Consultations * Infectious disease-cultures pending, urine culture shows enterococcus faecalis , resistant to ciprofloxacin and tetracycline. On vancomycin, Flagyl and Levaquin. Blood cultures 2 pending with no growth to date, urine strep/ Legionella pending, influenza negative. . Family/friend interactions 9 AM: Spoke with Crystal Berg, [id number], and rescheduled family meeting for 3 PM. Update given regarding patient current status and expected course. 10:30 AM: Spoke with brother in Davi Hebert, scheduled telephone conference for 3 PM for update and goals of care. Per report from brother Davi Orr is the first health care surrogate listed. Form not received as yet. 15:30 PM: Met with [id number] Crystal, chucho Orr and by telephone conference, son Davi. Updated regarding patient's prognosis and current clinical status. Questions were posed by the family regarding withdrawal of support as it was felt by all 3 attending family members that Mrs. Berg would not wish this type of aggressive resuscitation. They stated if her quality of life was not independent she would not want to be resuscitated. Living will and healthcare surrogate were reviewed and a copy placed in the chart. Plan per family is withdraw of support. Son, Davi, stated he did not have the access to fax or the ability to scan and so verbal consent was obtained with 2 nurses witnessing his statements. . Advance Directives Living Will: Copy in medical record Health Care Surrogate: Copy in medical record Durable Power of Architectural Job [employer]: Copy in medical record Advance Directive Specifics Date completed: Initial healthcare surrogate form was completed March 06, 2007 naming her sister Pratibha Che as the healthcare surrogate followed by the alternate Angy Carvajal, her other sister. That form was subsequently amended 04/11/2012 as both of the previously named surrogates were . In the handwritten amended form she named healthcare agent #1 as Aurelio Berg Junior and the first alternate as Kirby Berg. Health Care Surrogate(s): Healthcare agent #1 as Aurelio Berg Junior and the first alternate as Kirby Berg. Documented care wishes: Her healthcare wishes stated that if she has an end-stage medical condition ( which will result in my , despite the introduction of or continuation of medical treatment) or him permanently unconscious such as an irreversible coma or an irreversible vegetative state and there is no realistic hope of significant recovery, I directed I be given healthcare treatment to relieve pain and provide comfort even if such treatment might shorten my life, suppressed by appetite, or mine breathing or be habit forming. I directed all life prolonging procedures to be withheld or withdrawn. It further states that she does not wish tube feedings to be given. Objective Vital Signs Date Time Temp Pulse Resp B/P Pulse Ox O2 Delivery O2 Flow Rate FiO2 03/04/17 11:00 96 16 124/80 97 03/04/17 10:45 98 70 03/04/17 10:00 98.9 91 16 125/79 96 03/04/17 10:00 91 03/04/17 09:00 98.7 93 16 131/82 95 03/04/17 08:15 96 70 03/04/17 08:00 83 03/04/17 08:00 70 03/04/17 08:00 87 16 103/68 97 03/04/17 07:00 98.7 83 16 110/73 97 03/04/17 06:05 70 03/04/17 06:03 96 70 03/04/17 06:00 86 03/04/17 06:00 84 16 100/66 96 03/04/17 05:56 80 03/04/17 05:00 86 15 100/66 97 03/04/17 04:05 96 80 03/04/17 04:00 88 03/04/17 04:00 85 03/04/17 04:00 99.1 88 16 96/64 96 03/04/17 03:00 90 15 98/66 96 03/04/17 02:00 96 03/04/17 02:00 96 15 114/76 96 03/04/17 01:47 96 85 03/04/17 01:00 96 15 116/78 97 03/04/17 00:00 98.6 102 21 128/84 97 03/04/17 00:00 102 03/04/17 00:00 90 03/03/17 23:40 97 90 03/03/17 23:00 102 16 124/82 97 03/03/17 22:10 98 100 03/03/17 22:00 100 21 126/86 98 03/03/17 22:00 100 03/03/17 21:00 50 26 112/76 98 03/03/17 20:00 99.2 98 27 80/56 96 03/03/17 20:00 98 03/03/17 19:51 97 100 03/03/17 19:00 104 27 78/52 95 03/03/17 18:45 108 26 82/54 96 03/03/17 18:30 110 26 84/54 95 03/03/17 18:15 114 26 88/58 95 03/03/17 18:00 118 26 92/62 94 17 17:45 120 27 100/66 93 17 17:30 124 27 106/68 92 17 17:15 126 27 110/72 91 17 17:00 128 26 120/76 90 17 16:47 91 100 17 16:45 126 27 124/78 90 17 16:30 120 26 116/76 93 17 16:15 128 32 86/58 87 03/03/17 16:00 99.1 144 23 106/72 78 03/03/17 15:45 150 23 112/78 85 03/03/17 15:30 136 26 132/84 87 03/03/17 15:15 138 23 104/58 91 03/03/17 15:00 150 03/03/17 15:00 140 31 128/80 87 03/03/17 14:45 144 21 105/69 89 03/03/17 14:45 88 100 03/03/17 14:30 142 18 111/61 82 03/03/17 14:16 144 26 131/88 72 03/03/17 14:13 138 31 140/94 73 03/03/17 14:11 142 24 131/88 73 03/03/17 14:06 132 26 136/93 70 03/03/17 14:01 124 26 149/92 66 03/03/17 13:55 134 20 162/102 63 03/03/17 13:53 152 25 184/109 70 Intake & Output 03/04/17 03/04/17 07:00 19:00 Intake Total 4317 ml Output Total 25 ml Balance 4292 ml IV Total 4317 ml Output Urine Total 25 ml Physical Exam CONSTITUTIONAL/GENERAL: This is an obese, elderly female, intubated, sedated.. TUBES/LINES/DRAINS: PIV RFA, LFA, LIJ vas catheter SKIN: No jaundice, rashes, or lesions. Skin temperature cool HEAD: Atraumatic. Normocephalic. EYES: Pupils equal and round and 2 mm and sluggishly reactive. No scleral icterus. ENT: . Nose without bleeding or purulent drainage. NECK: Trachea midline, intubated. CARDIOVASCULAR: Tachycardic rate and regular rhythm without gallops, or rubs. 2/6 EBER at LSB RESPIRATORY/CHEST: Symmetric, respirations. Diminished, intubated, mechanically ventilated. GASTROINTESTINAL: Abdomen soft, nondistended. GENITOURINARY: Without palpable bladder distension. Bella catheter in place. MUSCULOSKELETAL: Extremities without clubbing. Trace edema, faint mottling. NEUROLOGICAL: Intubated, sedated. PSYCHIATRIC: Sedated. Diagnostic Tests Laboratory Laboratory Tests Test 03/01/17 03/01/17 03/01/17 03/01/17 22:00 22:10 23:40 23:47 Blood Gas Puncture Site RT RADIAL Blood Gas Patient Temperature 37.0 Blood Gas HCO3 18 mmol/L (22-26) Blood Gas Base Excess -5.4 mmol/L (-2-2) Blood Gas Oxygen Saturation 91 % (90-100) Arterial Blood pH 7.46 (7.380-7.420) Arterial Blood Partial 25 mmHg (38-42) Pressure CO2 Arterial Blood Partial 61 mmHg Pressure O2 (61-120) Arterial Blood Oxygen Content 12.3 Vol % (12.0-20.0) Arterial Blood 1.5 % (0-4) Carboxyhemoglobin Arterial Blood Methemoglobin 0.7 % (0-2) Blood Gas Hemoglobin 9.6 G/DL (12.0-16.0) Oxygen Delivery Device Venti Mask Blood Gas Inspired Oxygen 50 % White Blood Count 5.3 TH/MM3 (4.0-11.0) Red Blood Count 2.80 MIL/MM3 (4.00-5.30) Hemoglobin 8.5 GM/DL (11.6-15.3) Hematocrit 24.2 % (35.0-46.0) Mean Corpuscular Volume 86.6 FL (80.0-100.0) Mean Corpuscular Hemoglobin 30.4 PG (27.0-34.0) Mean Corpuscular Hemoglobin 35.2 % Concent (32.0-36.0) Red Cell Distribution Width 15.1 % (11.6-17.2) Platelet Count 173 TH/MM3 (150-450) Mean Platelet Volume 6.3 FL (7.0-11.0) Neutrophils (%) (Auto) 90.9 % (16.0-70.0) Lymphocytes (%) (Auto) 7.3 % (9.0-44.0) Monocytes (%) (Auto) 1.2 % (0.0-8.0) Eosinophils (%) (Auto) 0.3 % (0.0-4.0) Basophils (%) (Auto) 0.3 % (0.0-2.0) Neutrophils # (Auto) 4.8 TH/MM3 (1.8-7.7) Lymphocytes # (Auto) 0.4 TH/MM3 (1.0-4.8) Monocytes # (Auto) 0.1 TH/MM3 (0-0.9) Eosinophils # (Auto) 0.0 TH/MM3 (0-0.4) Basophils # (Auto) 0.0 TH/MM3 (0-0.2) CBC Comment DIFF FINAL Differential Comment Sodium Level 140 MEQ/L (136-145) Potassium Level 3.6 MEQ/L (3.5-5.1) Chloride Level 108 MEQ/L (98-107) Carbon Dioxide Level 20.6 MEQ/L (21.0-32.0) Anion Gap 11 MEQ/L (5-15) Blood Urea Nitrogen 15 MG/DL (7-18) Creatinine 1.30 MG/DL (0.50-1.00) Estimat Glomerular Filtration 40 ML/MIN (>89) Rate Random Glucose 182 MG/DL (74-106) Calcium Level 7.7 MG/DL (8.5-10.1) Magnesium Level 1.6 MG/DL (1.5-2.5) Total Bilirubin 0.3 MG/DL (0.2-1.0) Aspartate Amino Transf 36 U/L (15-37) (AST/SGOT) Alanine Aminotransferase 24 U/L (10-53) (ALT/SGPT) Alkaline Phosphatase 65 U/L (45-117) B-Type Natriuretic Peptide 48 PG/ML (0-100) Total Protein 5.0 GM/DL (6.4-8.2) Albumin 1.5 GM/DL (3.4-5.0) Blood Type A POSITIVE A POSITIVE Antibody Screen NEGATIVE Crossmatch Leukocyte-Reduced Red Blood Cells Blood Bank Comment Test 03/02/17 03/02/17 03/02/17 03/03/17 05:30 21:40 23:25 11:00 White Blood Count 5.5 TH/MM3 (4.0-11.0) Red Blood Count 3.35 MIL/MM3 (4.00-5.30) Hemoglobin 9.8 GM/DL (11.6-15.3) Hematocrit 29.5 % (35.0-46.0) Mean Corpuscular Volume 88.0 FL (80.0-100.0) Mean Corpuscular Hemoglobin 29.1 PG (27.0-34.0) Mean Corpuscular Hemoglobin 33.1 % Concent (32.0-36.0) Red Cell Distribution Width 15.1 % (11.6-17.2) Platelet Count 189 TH/MM3 (150-450) Mean Platelet Volume 5.9 FL (7.0-11.0) Neutrophils (%) (Auto) 89.4 % (16.0-70.0) Lymphocytes (%) (Auto) 8.1 % (9.0-44.0) Monocytes (%) (Auto) 1.1 % (0.0-8.0) Eosinophils (%) (Auto) 1.2 % (0.0-4.0) Basophils (%) (Auto) 0.2 % (0.0-2.0) Neutrophils # (Auto) 4.9 TH/MM3 (1.8-7.7) Lymphocytes # (Auto) 0.4 TH/MM3 (1.0-4.8) Monocytes # (Auto) 0.1 TH/MM3 (0-0.9) Eosinophils # (Auto) 0.1 TH/MM3 (0-0.4) Basophils # (Auto) 0.0 TH/MM3 (0-0.2) CBC Comment DIFF FINAL Differential Comment Sodium Level 143 MEQ/L (136-145) Potassium Level 3.9 MEQ/L (3.5-5.1) Chloride Level 111 MEQ/L (98-107) Carbon Dioxide Level 21.5 MEQ/L (21.0-32.0) Anion Gap 11 MEQ/L (5-15) Blood Urea Nitrogen 14 MG/DL (7-18) Creatinine 1.20 MG/DL (0.50-1.00) Estimat Glomerular Filtration 43 ML/MIN (>89) Rate Random Glucose 100 MG/DL (74-106) Calcium Level 7.7 MG/DL (8.5-10.1) Erythrocyte Sedimentation Rate GREATER THAN 140 mm/hr (0-30) C-Reactive Protein 35.90 MG/DL (0.00-0.30) Vancomycin Level Trough 11.0 MCG/ML (5.0-10.0) Blood Gas Puncture Site LT RADIAL Blood Gas Patient Temperature 37.0 Blood Gas HCO3 18 mmol/L (22-26) Blood Gas Base Excess -5.7 mmol/L (-2-2) Blood Gas Oxygen Saturation 90 % (90-100) Arterial Blood pH 7.44 (7.380-7.420) Arterial Blood Partial 27 mmHg (38-42) Pressure CO2 Arterial Blood Partial 59 mmHg Pressure O2 (61-120) Arterial Blood Oxygen Content 19.4 Vol % (12.0-20.0) Arterial Blood 1.2 % (0-4) Carboxyhemoglobin Arterial Blood Methemoglobin 0.8 % (0-2) Blood Gas Hemoglobin 15.4 G/DL (12.0-16.0) Oxygen Delivery Device BIPAP Blood Gas Ventilator Setting IPAP10/EPAP5 Blood Gas Inspired Oxygen 70 % Test 03/03/17 03/03/17 03/03/17 03/03/17 11:06 14:00 15:07 15:10 Urine Eosinophils NONE SEEN /HPF (NONE SEEN) Urine Random Creatinine 97.5 MG/DL Urine Random Sodium 57 MEQ/L Blood Gas Puncture Site LT FEMORAL Blood Gas Patient Temperature 37.0 Blood Gas HCO3 16 mmol/L (22-26) Blood Gas Base Excess -11.5 mmol/L (-2-2) Blood Gas Oxygen Saturation 65 % (90-100) Arterial Blood pH 7.11 (7.380-7.420) Arterial Blood Partial 54 mmHg (38-42) Pressure CO2 Arterial Blood Partial 47 mmHg Pressure O2 (61-120) Arterial Blood Oxygen Content 9.4 Vol % (12.0-20.0) Arterial Blood 0.1 % (0-4) Carboxyhemoglobin Arterial Blood Methemoglobin 1.6 % (0-2) Blood Gas Hemoglobin 10.2 G/DL (12.0-16.0) Oxygen Delivery Device VENT Blood Gas Ventilator Setting AC 550/20/10 PEEP Blood Gas Inspired Oxygen 100 % White Blood Count 13.5 TH/MM3 (4.0-11.0) Red Blood Count 3.52 MIL/MM3 (4.00-5.30) Hemoglobin 10.4 GM/DL (11.6-15.3) Hematocrit 31.1 % (35.0-46.0) Mean Corpuscular Volume 88.6 FL (80.0-100.0) Mean Corpuscular Hemoglobin 29.6 PG (27.0-34.0) Mean Corpuscular Hemoglobin 33.5 % Concent (32.0-36.0) Red Cell Distribution Width 15.0 % (11.6-17.2) Platelet Count 368 TH/MM3 (150-450) Mean Platelet Volume 6.7 FL (7.0-11.0) Neutrophils (%) (Auto) 93.0 % (16.0-70.0) Lymphocytes (%) (Auto) 5.6 % (9.0-44.0) Monocytes (%) (Auto) 1.2 % (0.0-8.0) Eosinophils (%) (Auto) 0.1 % (0.0-4.0) Basophils (%) (Auto) 0.1 % (0.0-2.0) Neutrophils # (Auto) 12.5 TH/MM3 (1.8-7.7) Lymphocytes # (Auto) 0.8 TH/MM3 (1.0-4.8) Monocytes # (Auto) 0.2 TH/MM3 (0-0.9) Eosinophils # (Auto) 0.0 TH/MM3 (0-0.4) Basophils # (Auto) 0.0 TH/MM3 (0-0.2) CBC Comment DIFF FINAL Differential Comment Prothrombin Time 16.6 SEC (9.8-11.6) Prothromb Time International 1.5 RATIO Ratio Activated Partial 34.5 SEC Thromboplast Time (24.3-30.1) Fibrinogen GREATER THAN 860 mg/dL (227-377) Sodium Level 144 MEQ/L (136-145) Potassium Level 4.6 MEQ/L (3.5-5.1) Chloride Level 112 MEQ/L (98-107) Carbon Dioxide Level 18.8 MEQ/L (21.0-32.0) Anion Gap 13 MEQ/L (5-15) Blood Urea Nitrogen 26 MG/DL (7-18) Creatinine 1.10 MG/DL (0.50-1.00) Estimat Glomerular Filtration 48 ML/MIN (>89) Rate Random Glucose 268 MG/DL (74-106) Lactic Acid Level 4.1 mmol/L (0.4-2.0) Calcium Level 7.8 MG/DL (8.5-10.1) Phosphorus Level 4.9 MG/DL (2.5-4.9) Magnesium Level 1.9 MG/DL (1.5-2.5) Total Bilirubin 0.8 MG/DL (0.2-1.0) Aspartate Amino Transf 255 U/L (15-37) (AST/SGOT) Alanine Aminotransferase 101 U/L (10-53) (ALT/SGPT) Alkaline Phosphatase 301 U/L (45-117) Ammonia 110 MCMOL/L (11-32) Total Creatine Kinase 131 U/L (26-192) Creatine Kinase MB 2.6 NG/ML (0.5-3.6) Troponin I 0.66 NG/ML (0.02-0.05) Total Protein 5.5 GM/DL (6.4-8.2) Albumin 1.5 GM/DL (3.4-5.0) Test 03/03/17 03/03/17 03/03/17 03/03/17 15:30 17:02 18:46 21:02 Blood Gas Puncture Site ART LINE ART LINE Blood Gas Patient Temperature 37.0 37.0 Blood Gas HCO3 18 mmol/L 14 mmol/L (22-26) (22-26) Blood Gas Base Excess -8.0 mmol/L -11.5 mmol/L (-2-2) (-2-2) Blood Gas Oxygen Saturation 86 % (90-100) 90 % (90-100) Arterial Blood pH 7.24 7.26 (7.380-7.420) (7.380-7.420) Arterial Blood Partial 44 mmHg (38-42) 33 mmHg (38-42) Pressure CO2 Arterial Blood Partial 62 mmHg 72 mmHg Pressure O2 (61-120) (61-120) Arterial Blood Oxygen Content 13.5 Vol % 13.8 Vol % (12.0-20.0) (12.0-20.0) Arterial Blood 0.8 % (0-4) 0.9 % (0-4) Carboxyhemoglobin Arterial Blood Methemoglobin 0.8 % (0-2) 1.1 % (0-2) Blood Gas Hemoglobin 11.1 G/DL 10.8 G/DL (12.0-16.0) (12.0-16.0) Oxygen Delivery Device VENTILATOR VENTILATOR Blood Gas Ventilator Setting 22/600/PEEP12 16/700/PEEP12 Blood Gas Inspired Oxygen 100 % 100 % Lactic Acid Level 7.0 mmol/L 8.4 mmol/L (0.4-2.0) (0.4-2.0) Troponin I 3.96 NG/ML (0.02-0.05) Test 03/04/17 03/04/17 03/04/17 03/04/17 02:22 05:26 05:50 07:45 Lactic Acid Level 8.1 mmol/L 8.5 mmol/L (0.4-2.0) (0.4-2.0) Troponin I 13.10 NG/ML 16.10 NG/ML (0.02-0.05) (0.02-0.05) White Blood Count 10.2 TH/MM3 (4.0-11.0) Red Blood Count 3.14 MIL/MM3 (4.00-5.30) Hemoglobin 9.3 GM/DL (11.6-15.3) Hematocrit 27.7 % (35.0-46.0) Mean Corpuscular Volume 88.2 FL (80.0-100.0) Mean Corpuscular Hemoglobin 29.5 PG (27.0-34.0) Mean Corpuscular Hemoglobin 33.4 % Concent (32.0-36.0) Red Cell Distribution Width 15.6 % (11.6-17.2) Platelet Count 186 TH/MM3 (150-450) Mean Platelet Volume 7.3 FL (7.0-11.0) Neutrophils (%) (Auto) 91.6 % (16.0-70.0) Lymphocytes (%) (Auto) 6.5 % (9.0-44.0) Monocytes (%) (Auto) 1.6 % (0.0-8.0) Eosinophils (%) (Auto) 0.2 % (0.0-4.0) Basophils (%) (Auto) 0.1 % (0.0-2.0) Neutrophils # (Auto) 9.3 TH/MM3 (1.8-7.7) Lymphocytes # (Auto) 0.7 TH/MM3 (1.0-4.8) Monocytes # (Auto) 0.2 TH/MM3 (0-0.9) Eosinophils # (Auto) 0.0 TH/MM3 (0-0.4) Basophils # (Auto) 0.0 TH/MM3 (0-0.2) CBC Comment DIFF FINAL Differential Comment Sodium Level 138 MEQ/L (136-145) Potassium Level 5.2 MEQ/L (3.5-5.1) Chloride Level 102 MEQ/L (98-107) Carbon Dioxide Level 17.2 MEQ/L (21.0-32.0) Anion Gap 19 MEQ/L (5-15) Blood Urea Nitrogen 40 MG/DL (7-18) Creatinine 2.40 MG/DL (0.50-1.00) Estimat Glomerular Filtration 20 ML/MIN (>89) Rate Random Glucose 244 MG/DL (74-106) Calcium Level 6.5 MG/DL (8.5-10.1) Protein Corrected Calcium 7.5 MG/DL (8.5-10.1) Phosphorus Level 8.1 MG/DL (2.5-4.9) Magnesium Level 2.1 MG/DL (1.5-2.5) Total Bilirubin 1.4 MG/DL (0.2-1.0) Aspartate Amino Transf 55406 U/L (AST/SGOT) (15-37) Alanine Aminotransferase 5054 U/L (ALT/SGPT) (10-53) Alkaline Phosphatase 301 U/L (45-117) Total Creatine Kinase 788 U/L (26-192) Creatine Kinase MB 31.6 NG/ML (0.5-3.6) Creatine Kinase MB % 4.0 % (0.0-4.0) Total Protein 5.1 GM/DL (6.4-8.2) Albumin 2.1 GM/DL (3.4-5.0) Blood Gas Puncture Site ART LINE Blood Gas Patient Temperature 37.0 Blood Gas HCO3 15 mmol/L (22-26) Blood Gas Base Excess -11.8 mmol/L (-2-2) Blood Gas Oxygen Saturation 97 % (90-100) Arterial Blood pH 7.21 (7.380-7.420) Arterial Blood Partial 38 mmHg (38-42) Pressure CO2 Arterial Blood Partial 181 mmHg Pressure O2 (61-120) Arterial Blood Oxygen Content 12.9 Vol % (12.0-20.0) Arterial Blood 0.6 % (0-4) Carboxyhemoglobin Arterial Blood Methemoglobin 1.5 % (0-2) Blood Gas Hemoglobin 9.2 G/DL (12.0-16.0) Oxygen Delivery Device VENTILATOR Blood Gas Ventilator Setting PRVC/AC Blood Gas Inspired Oxygen 80 % Prothrombin Time 27.1 SEC (9.8-11.6) Prothromb Time International 2.4 RATIO Ratio Activated Partial 38.1 SEC Thromboplast Time (24.3-30.1) Test 03/04/17 10:10 Potassium Level 4.5 MEQ/L (3.5-5.1) Lactic Acid Level 8.8 mmol/L (0.4-2.0) Troponin I 25.50 NG/ML (0.02-0.05) Result Diagram: 03/04/17 0526 03/04/17 1010 Microbiology Microbiology Date/Time Procedure Status Source Growth 03/02/17 21:40 Aerobic Blood Culture - Preliminary Resulted Blood Peripheral NO GROWTH IN 2 DAYS 03/02/17 21:40 Anaerobic Blood Culture - Preliminary Resulted Blood Peripheral NO GROWTH IN 2 DAYS 03/02/17 21:45 Legionella Antigen - Final Complete Urine Catheterized Urine PRESUMPTIVE NEGATIVE FOR LEGIONELLA P... 03/02/17 21:45 Streptococcus pneumoniae Antigen (M - Final Complete Urine Clean Catch PRESUMPTIVE NEGATIVE FOR STREPTOCOCCU... 03/02/17 21:49 Aerobic Blood Culture - Preliminary Resulted Blood Peripheral NO GROWTH IN 2 DAYS 03/02/17 21:49 Anaerobic Blood Culture - Preliminary Resulted Blood Peripheral NO GROWTH IN 2 DAYS Imaging Last Impressions Chest X-Ray 03/04/17 0809 Signed Impressions: Service Date/Time: Saturday, March 04, 2017 08:35 - CONCLUSION: 1. Left IJ Vas-Cath tip at the confluence of the SVC and brachiocephalic. No pneumothorax. 2. Cardiomegaly with pulmonary vascular congestion. 3. Stable diffuse patchy bilateral airspace disease. Jem Fletcher MD Abdomen X-Ray 03/04/17 0000 Signed Impressions: Service Date/Time: Saturday, March 04, 2017 08:35 - CONCLUSION: 1. Nasogastric tube tip projects over the mid stomach. Aurelio Aceves MD Renal Ultrasound 03/03/17 0000 Signed Impressions: Service Date/Time: February 08:23 - CONCLUSION: 1. Status post right nephrectomy. 2. Redemonstration of 2.4 x 2.0 x 1.9 cm cyst in the inferior pole the left kidney. 3. No renal calculi or obstructive uropathy. Jem Fletcher MD Head CT 02/28/17 0000 Signed Impressions: Service Date/Time: Tuesday, February 28, 2017 15:48 - CONCLUSION: 1. 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 No acute intracranial abnormality is identified. Cortes Lopez MD CT Angiography 02/28/17 0000 Signed Impressions: Service Date/Time: Tuesday, February 28, 2017 16:01 - CONCLUSION: 1. No pulmonary embolus identified. 2. 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 3. Diffuse interstitial fibrotic change with extensive opacification of the right upper lobe. Cortse Lopez MD Procedures 03/03 - Intubated. 03/04 - left IJ vas catheter . Assessment and Plan Disease Oriented Problem List: (1) Generalized weakness (2) Lactic acidosis (3) Sepsis (4) UTI (urinary tract infection) (5) COPD (chronic obstructive pulmonary disease) (6) Respiratory failure with hypoxia (7) NSTEMI (non-ST elevated myocardial infarction) Symptom Scale: (1) Anxiety 0-10 Scale: Unable to quantify (2) Dyspnea and respiratory abnormalities 0-10 Scale: Unable to quantify (3) Pain, generalized 0-10 Scale: Unable to quantify Pertinent Non-Medical Issues Psychosocial: Born in [place], moved to [place] in 2014 to live with her son. 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 She is the oldest of 7 children and had 3 children, Ron (disabled with mental retardation), Davi and Kirby. Kirby states his brother Davi is the HCS and will bring in the form. Spiritual:Raised Sikhism, would like a customer service professional visit. Legal: Son Davi is reportedly the HCS with her son Kirby as alternate. Son is to bring form in. Ethical issues impacting care: Important Contacts Chucho Tomlinson - [phone], (work) Son Kirby - [phone], cell [phone] Prognosis Her prognosis is very poor. She has end stage lung disease, pulmonary fibrosis with cardiac compromise, with multiple comorbidities and a recent trajectory of decline. Her condition declined rapidly today, resulting in a near fatal arrhythmia and respiratory arrest. She is receiving multiple medications to include vasopressin, Epoprostenol, cisatracurium, neosynephrine, amiodarone, bicarbonate and multiple antibiotics requiring mechanical ventilation. She remains tachycardic, requiring hemodynamic support. Code Status: Full Code Plan PLAN: Legal decision maker: Reported to be her son, Davi, pending review of HCS/LW paperwork to be brought to the hospital in a.m. by sonDavi. Goals: Comfort care CODE STATUS: DNR SYMPTOMS: * Dyspnea - mechanically ventilated, not tachypneic on sedation. At risk for increased dyspnea with weaning due to her pulmonary fibrosis, history of PE, RAJESH lobectemy and end stage COPD. * Anxiety - currently sedated, but at risk for anxiety d/t intubation, SOB, air hunger, lung disease and sepsis. May need medication as sedation decreased. * Pain - currently sedated however possible sources of pain include bedbound status, restraints, intubation, chest pain, invasive lines. After discussion with the family, it was determined to make the patient a DO NOT RESUSCITATE with a plan for withdrawal of support with comfort measures by Tuesday. This was discussed with the attending and consulting physicians who concur that this is an appropriate decision. Palliative care will continue to follow the patient during hospital course as condition evolves, to assist patient/decision-maker with understanding of their medical conditions, weighing benefits/burdens of treatment options, for clarification of goals of treatment. Additionally will assist with any symptoms of palliative concern Attestation To help prompt me to consider important information that might be impacting today's encounter and assessment, information from prior notes written by myself or my colleagues may have been "brought forward" into today's note. My signature on this note, however, is an attestation that I personally performed the exam, history, and/or decision-making noted today, and, unless otherwise indicated, the interactions with patient, family, and staff as well as the review of records all occurred today. I also attest that the listed assessment and stated plan reflect my best clinical judgment today based on the combination of historical information, prior notes, and today's exam/ interactions. When time spent is documented, it refers only to time spent today by the signer, or if indicated, combined time spent today by collaborating physician/nurse practitioner. Veda Betancourt Mar 04, 2017 2:04 pm
--- NOTE | 2017-03-04 14:18 | RADRPT ---
EXAM DATE/TIME: 03/04/2017 13:59 [facility] COMPARISON: CHEST SINGLE AP, March 04, 2017, 8:35. INDICATIONS : Respiratory failure MEDICAL HISTORY : Chronic obstructive pulmonary disease. Hypercholesterolemia. SURGICAL HISTORY : Lobectomy. Mastectomy, bilateral. ENCOUNTER: Subsequent ACUITY: 2 days PAIN SCORE: Non-responsive. LOCATION: Bilateral chest FINDINGS: Endotracheal tube tip is in satisfactory position. Right and left IJ line tips are in superior vena c belem. There is bilateral airspace disease predominantly at the bases, similar to March 04 exam from [facility] today. No pneumothorax. CONCLUSION: 1. Support apparatus unchanged. Bilateral basal air space disease similar to earlier examination. Aurelio Aceves MD on March 04, 2017 at 14:14 Board Certified Radiologist. This report was verified electronically.
[2017-03-04 15:07] LABS: BLOOD GAS BASE EXCESS -3.7 mmol/L (-2-2); BLOOD GAS CARBOXYHEMOGLOBIN 0.9 % (0-4); BLOOD GAS HCO3 20 mmol/L (22-26); BLOOD GAS METHEMOGLOBIN 1.7 % (0-2); BLOOD GAS O2 HGB SATURATION 95 % (90-100); BLOOD GAS OXYGEN CONTENT 10.7 Vol % (12.0-20.0); BLOOD GAS PCO2 33 mmHg (38-42); BLOOD GAS PO2 105 mmHg (61-120); BLOOD GAS TOTAL HGB 7.8 G/DL (12.0-16.0)
[2017-03-04 15:08] LABS: CRITICAL VALUE NO; DRAW SITE ALINE; FIO2 70 %; OXYGEN DEVICE VENTILATOR; STAT NO; VENT SETTINGS 700/20/PEEP 12
[2017-03-04 15:20] LABS: POTASSIUM 4.2 MEQ/L (3.5-5.1)
[2017-03-04 15:23] LABS: AUTOMATED NEUTROPHIL # 3.9 TH/MM3 (1.8-7.7); BASOPHIL % 0.1 % (0.0-2.0); EOSINOPHIL % 0.2 % (0.0-4.0); HEMATOCRIT 23.5 % (35.0-46.0); LYMPH % 8.6 % (9.0-44.0); LYMPHOCYTE # 0.4 TH/MM3 (1.0-4.8); MEAN CELL VOLUME 89.1 FL (80.0-100.0); MEAN CORPUSCULAR HEMOGLOBIN 30.4 PG (27.0-34.0); MEAN CORPUSCULAR HGB CONC 34.2 % (32.0-36.0); MONO % 3.3 % (0.0-8.0); NEUT % 87.8 % (16.0-70.0); RED BLOOD COUNT 2.64 MIL/MM3 (4.00-5.30); RED CELL DISTRIBUTION WIDTH 15.7 % (11.6-17.2); WHITE BLOOD COUNT 4.4 TH/MM3 (4.0-11.0)
[2017-03-04 15:30] LABS: HEMO FLAGS AUTO DIFF; PLATELET COUNT 117 TH/MM3 (150-450)
[2017-03-04 15:59] LABS: SCAN/DIFF AUTO DIFF CONFIRMED
[2017-03-04 16:01] LABS: PLATELET ESTIMATE SMEAR LOW (NORMAL); PLATELET MORPHOLOGY NORMAL (NORMAL)
[2017-03-04 16:02] LABS: BICARBONATE 24.7 MEQ/L (21.0-32.0); MAGNESIUM 2.2 MG/DL (1.5-2.5)
--- NOTE | 2017-03-04 16:30 | EKG ---
Date Performed: 03/03/2017 Time Performed: 13:58:23 PTAGE: 76 years EKG: ATRIAL FLUTTER/TACHYCARDIA WITH RAPID VENTRICULAR RESPONSE MARKED LEFT AXIS DEVIATION INTRA VENTRICULAR CONDUCTION DELAY ABNORMAL ECG INTERPRETATION BASED ON A DEFAULT AGE OF 40 YEARS PREVIOUS TRACING : 02/28/2017 11.07 Compared to previous tracing, there is now more of a right bundle branch block. Possible with concurrent acute inferior infarction. Clinical correlation r ecommended. DOCTOR: Nella Galdamez Interpretating Date/Time 03/04/2017 16:28:06
--- NOTE | 2017-03-04 16:31 | EKG ---
Date Performed: 03/03/2017 Time Performed: 16:19:15 PTAGE: 76 years EKG: SINUS TACHYCARDIA WITH SHORT CO INTERVAL RIGHT BUNDLE BRANCH BLOCK LEFT ANTERIOR FASCICULAR BLOCK ABNORMAL ECG PREVIOUS TRACING : 03/03/2017 13.58 Compared to previous tracing, no significant change. Clinic al correlation recommended. Some widening of the QRS may also have acutely infarcted. DOCTOR: Nella Galdamez Interpretating Date/Time 03/04/2017 16:29:24
[2017-03-04 16:41] LABS: CALCIUM-PROTEIN CORRECTED 7.6 MG/DL (8.5-10.1); CKMB 43.2 NG/ML (0.5-3.6)
[2017-03-04] MEDS ORDERED: PHYTONADIONE INJ 10 MG in SODIUM CHLORIDE 0.9% INJ 50 ML IV ONE (17:00)
[2017-03-04] MEDS: PANTOPRAZOLE SODIUM 40 MG VIAL IV PUSH SCH (17:15)
[2017-03-04] MEDS: fentaNYL DRIP 250 ML IV SCH (17:25)
[2017-03-04] MEDS ORDERED: VANCOMYCIN INJ 1,750 MG in SODIUM CHLORID 0.9% 500 ML INJ 500 ML IV SCH (18:00)
--- NOTE | 2017-03-04 20:10 | HHI.PR ---
Subjective Remarks Went into progressive resp failure . Now intubated and on Vent support. FIo2 60 %. On Pressors. Poor output. In multiorgan failure. CXR with pulmonary edema Objective Vital Signs Date Time Temp Pulse Resp B/P Pulse Ox O2 Delivery O2 Flow Rate FiO2 03/04/17 19:15 96 60 03/04/17 18:15 98.2 105 20 128/85 96 03/04/17 18:10 98.3 106 20 131/87 96 03/04/17 18:00 98.7 104 20 120/78 96 03/04/17 18:00 104 03/04/17 17:02 98.9 108 20 124/84 96 03/04/17 16:30 96 70 03/04/17 16:00 108 03/04/17 16:00 70 03/04/17 16:00 98.9 104 20 118/79 96 03/04/17 15:00 98.8 109 20 116/80 96 03/04/17 14:00 98.9 100 16 118/78 96 03/04/17 14:00 94 70 03/04/17 14:00 110 03/04/17 13:00 98.9 110 16 110/72 96 03/04/17 12:00 90 03/04/17 12:00 98.9 90 16 120/78 96 03/04/17 12:00 70 03/04/17 11:00 96 16 124/80 97 03/04/17 10:45 98 70 03/04/17 10:00 98.9 91 16 125/79 96 03/04/17 10:00 91 03/04/17 09:00 98.7 93 16 131/82 95 03/04/17 08:15 96 70 03/04/17 08:00 83 03/04/17 08:00 70 03/04/17 08:00 87 16 103/68 97 03/04/17 07:00 98.7 83 16 110/73 97 03/04/17 06:05 70 03/04/17 06:03 96 70 03/04/17 06:00 86 03/04/17 06:00 84 16 100/66 96 03/04/17 05:56 80 03/04/17 05:00 86 15 100/66 97 03/04/17 04:05 96 80 03/04/17 04:00 88 03/04/17 04:00 85 03/04/17 04:00 99.1 88 16 96/64 96 03/04/17 03:00 90 15 98/66 96 03/04/17 02:00 96 03/04/17 02:00 96 15 114/76 96 03/04/17 01:47 96 85 03/04/17 01:00 96 15 116/78 97 03/04/17 00:00 98.6 102 21 128/84 97 03/04/17 00:00 102 03/04/17 00:00 90 03/03/17 23:40 97 90 03/03/17 23:00 102 16 124/82 97 03/03/17 22:10 98 100 03/03/17 22:00 100 21 126/86 98 03/03/17 22:00 100 03/03/17 21:00 50 26 112/76 98 I/O 03/03/17 03/03/17 03/03/17 03/04/17 03/04/17 03/04/17 07:00 15:00 23:00 07:00 15:00 23:00 Intake Total 1190 ml 1553 ml 2801 ml 1516 ml 1922 ml Output Total 850 ml 550 ml 0 ml 70 ml Balance 340 ml 1553 ml 2251 ml 1516 ml 1852 ml Intake Oral 100 ml 100 ml 0 ml IV Total 1090 ml 1453 ml 2801 ml 1516 ml 1922 ml Output Urine Total 850 ml 550 ml 0 ml 70 ml # Bowel Movements 0 Result Diagram: 03/04/17 1735 03/04/17 1500 Objective Remarks GENERAL: This moderately obese elderly lady,intubated sedated. HEENT: Head normocephalic. Pupils reactive and equal. Tongue is dry. Throat is injected. NECK: Supple. No lymphadenopathy. No bruits or thyroid enlargement. CHEST: Distant breath sounds with coarse wheezes throughout both lung oliver with occasional crackles in both lung oliver. CARDIOVASCULAR: Heart sounds are irregular, S1-S2 with no murmur. No S3. ABDOMEN: Abdomen is soft, benign. No masses or organomegaly or tenderness. Bowel sounds active. EXTREMITIES: Mild peripheral edema with diminished pulses. No calf tenderness. Reflexes are not elicited , Sedated NEURO: Sedated on the vent SKIN: Skin was dry and warm. Assessment and Plan Assessment and Plan IMPRESSION 1. Hypoxic Resp failure 2. Probable pneumonia right upper lobe. 3. Sepsis. 4. Renal failure 5. Anemia with GI Bleed Plan ; 1. Vent support and wean FIo2 . 2. Continue antibiotics./ Solumedrol 3. Nebs qid , duoneb 4. Wean Pressors. 5. Rpt CBC,BMP,CXR 6. Poor prognosis /D/W Dr Correa. Luther Jennings MD Mar 04, 2017 20:10
[2017-03-04] MEDS: ARTIFICIAL TEARS OPTH OINT 3.5 APPLIC/3.5 GM TUBO EACH EYE SCH (21:00)
[2017-03-04] MEDS: PROPOFOL 1000 MG/100 ML INJ 100 ML IV SCH (22:48)
[2017-03-04] MEDS: LEVOFLOXACIN 750 MG PREMIX INJ 150 ML IV SCH (22:51)
[2017-03-05] VITALS (43 sets, daily range): BP systolic 86–143; BP diastolic 62–94; PULSE 78–102; RESP 13–22; TEMP 97.5–98.4; O2SAT 91–98
[2017-03-05] MEDS: INSULIN NovoLIN REGULAR SUPPLEMENTAL SCALE SQ SCH ×3 (00:24→20:00)
[2017-03-05] MEDS: EPOPROSTENOL NEB SOLUTION 50 NG/KG/MIN 100 ML NEB SCH ×4 (03:15→16:00)
[2017-03-05] MEDS: CISATRACURIUM INJ 100 MG in SODIUM CHLOR 0.9% 250 ML INJ 240 ML IV SCH (03:15)
[2017-03-05] MEDS: CHLORHEXIDINE GLUCONATE 2 % 1 PACK (2 CLOTHS)(taper/protocol) TOPICAL SCH (03:19)
[2017-03-05] MEDS: RESP: ALBUTEROL 2.5 MG/IPRATROPIUM 0.5 MG NEB (SCH) NEB ×6 (03:55→23:08)
[2017-03-05] MEDS ORDERED: PHARMACY ORDERED LAB ONE (05:45)
[2017-03-05 05:46] LABS: AUTOMATED NEUTROPHIL # 4.5 TH/MM3 (1.8-7.7); BASOPHIL % 0.6 % (0.0-2.0); EOSINOPHIL % 0.1 % (0.0-4.0); HEMATOCRIT 26.2 % (35.0-46.0); LYMPH % 7.7 % (9.0-44.0); LYMPHOCYTE # 0.4 TH/MM3 (1.0-4.8); MEAN CELL VOLUME 85.9 FL (80.0-100.0); MEAN CORPUSCULAR HEMOGLOBIN 29.4 PG (27.0-34.0); MEAN CORPUSCULAR HGB CONC 34.2 % (32.0-36.0); MONO % 2.1 % (0.0-8.0); NEUT % 89.5 % (16.0-70.0); PLATELET COUNT 107 TH/MM3 (150-450); RED BLOOD COUNT 3.05 MIL/MM3 (4.00-5.30); RED CELL DISTRIBUTION WIDTH 15.8 % (11.6-17.2)
[2017-03-05 05:49] LABS: HEMO FLAGS AUTO DIFF
[2017-03-05 05:58] LABS: POTASSIUM 4.1 MEQ/L (3.5-5.1)
[2017-03-05 06:02] LABS: APTT (PATIENT) 36.2 SEC (24.3-30.1)
[2017-03-05 06:07] LABS: BANDS 17 % (0-6); NEUTROPHIL # MANUAL DIFF 4.8 TH/MM3 (1.8-7.7); PLATELET ESTIMATE SMEAR LOW (NORMAL); PLATELET MORPHOLOGY NORMAL (NORMAL); POLYS (SEG NEUTROPHILS) 78 % (16-70); SCAN/DIFF FINAL DIFF MANUAL; WBC DIFF SAMPLE 100
[2017-03-05 06:07] LABS: BLOOD GAS HCO3 25 mmol/L (22-26); BLOOD GAS METHEMOGLOBIN 1.7 % (0-2); BLOOD GAS O2 HGB SATURATION 95 % (90-100); BLOOD GAS OXYGEN CONTENT 12.5 Vol % (12.0-20.0); BLOOD GAS PCO2 41 mmHg (38-42); BLOOD GAS PO2 100 mmHg (61-120); BLOOD GAS TOTAL HGB 9.2 G/DL (12.0-16.0); CRITICAL VALUE NO; OXYGEN DEVICE VENTILATOR
[2017-03-05 06:08] LABS: DRAW SITE ART LINE; FIO2 60 %; STAT NO; VENT SETTINGS PRVC/AC
[2017-03-05 06:13] LABS: MAGNESIUM 2.1 MG/DL (1.5-2.5); TOTAL BILIRUBIN ADULT 1.6 MG/DL (0.2-1.0)
--- NOTE | 2017-03-05 06:30 | RADRPT ---
EXAM DATE/TIME: 03/05/2017 06:20 [facility] COMPARISON: CHEST SINGLE AP, March 04, 2017, 13:59. INDICATIONS : Shortness of breath. MEDICAL HISTORY : Chronic obstructive pulmonary disease. Hypercholesterolemia SURGICAL HISTORY : Lobectomy. Mastectomy, bilateral ENCOUNTER: Subsequent ACUITY: 3 days PAIN SCORE: Non-responsive. LOCATION: Bilateral chest FINDINGS: A single view of the chest demonstrates bilateral airspace disease greater in the lower lobes not sig nificantly changed. Endotracheal tube, nasogastric tube and bilateral jugular lines are stable.. Oss eous structures are intact. CONCLUSION: 1. Bilateral airspace disease appears unchanged. 2. Support lines and tubes are unchanged. David Jones MD on March 05, 2017 at 6:28 Board Certified Radiologist. This report was verified electronically.
[2017-03-05 06:56] LABS: CALCIUM-PROTEIN CORRECTED 6.6 MG/DL (8.5-10.1)
[2017-03-05] MEDS: methylPREDNISolone SOD SUCC 40 MG/1 ML VIAL IV PUSH SCH ×2 (07:34→21:05)
[2017-03-05] MEDS: PANTOPRAZOLE SODIUM 40 MG VIAL IV PUSH SCH (07:34)
[2017-03-05 07:37] LABS: CKMB 63.9 NG/ML (0.5-3.6)
[2017-03-05] MEDS: RESP: BUDESONIDE 0.25 MG/2 ML NEB NEB SCH ×2 (07:53→19:58)
[2017-03-05] MEDS ORDERED: MIDAZOLAM 100 MG/ML INJ 100 ML IV SCH (11:15)
--- NOTE | 2017-03-05 11:26 | HHI.CCPN ---
Subjective Remarks/Hospital Course 76-year-old female. Date of admission 02/27/2017. Date of consultation 03/03/2017. Past medical history includes underlying emphysema, COPD oxygen dependent, history of pulmonary wasn't on chronic Xarelto, hypertension, dyslipidemia, peripheral neuropathy, history of left upper lobe lobectomy, bilateral mastectomy for breast cancer in her right nephrectomy for kidney cancer. In December, patient had a left frontal meghan hole/skull biopsy. Patient originally presented to [facility] ED after status post fall at home patient difficulty getting up. Daughter activated EMS. She was noted of a UTI and started on antibiotics. She's been seen by Dr. Strickland for abnormal EKG. Troponin 0.02. Recommend echocardiogram. These results are currently pending. A volumetric Presley/infectious disease. Her urine did grow out enterococcus faecalis which she is currently on following a bicycle Levaquin, Azactam, Flagyl and vancomycin.. Also seen in consultation by Dr. Jennings DVT abnormal CTA's 02/28 which revealed right upper lobe opacification/fibrosis, 2.3 x 2 cm left perihilar lymph node in hepatic cyst. Recommend aggressive pulmonary including duo nebs 4 times a day, Pulmicort twice a day and Solu-Medrol 40 IV every 8 hours on BiPAP management. Due to increasing oxygen requirements, we are asked to evaluate the patient. Patient is currently a full code. Subjective 03/04: Intubated at 1:30 yesterday afternoon. Wide complex tachycardia/V. tach reported by Dr. Whitlock/ED physician post intubation requiring CPR around 5 minutes with 2 mg epinephrine, chest compressions and 20 J the ER and reported as cardioversion however was likely defibrillation. Regardless, post code patient was awake and following commands therefore targeted temperature management was not instituted. Noted to have elevated troponin, shock liver and no urine output overnight. Oxygen requirements decreased from 100% to 70% this AM. Discuss with both sons this a.m. including Kirby here in [place] and son in [place] 03/05: Remains very critical, FiO2 60% PEEP of 12. Remains on Nimbex for neuromuscular paralysis for ventilator synchrony due to severe hypoxia. Propofol and fentanyl infusion ongoing. Acute kidney failure with oliguria/ anuria. Hardly making any urine Objective Vital Signs Date Time Temp Pulse Resp B/P Pulse Ox O2 Delivery O2 Flow Rate FiO2 03/05/17 10:28 96 60 03/05/17 06:00 98 03/05/17 06:00 16 122/85 03/05/17 00:00 97.7 03/03/17 12:00 Bi-Pap 03/03/17 07:50 15.00 Intake and Output 03/04/17 03/04/17 03/05/17 08:00 16:00 00:00 Intake Total 1516 ml 1922 ml 286 ml Output Total 0 ml 70 ml 25 ml Balance 1516 ml 1852 ml 261 ml Result Diagram: 03/05/17 0500 03/05/17 0500 Other Results Microbiology Date/Time Procedure Status Source Growth 03/02/17 21:45 Legionella Antigen - Final Complete Urine Catheterized Urine PRESUMPTIVE NEGATIVE FOR LEGIONELLA P... 03/02/17 21:45 Streptococcus pneumoniae Antigen (M - Final Complete Urine Clean Catch PRESUMPTIVE NEGATIVE FOR STREPTOCOCCU... Laboratory Tests Test 03/04/17 03/05/17 15:00 06:00 Blood Gas Puncture Site HAIDER ART LINE Blood Gas Patient Temperature 37.0 37.0 Blood Gas HCO3 20 mmol/L 25 mmol/L (22-26) (22-26) Blood Gas Base Excess -3.7 mmol/L 1.0 mmol/L (-2-2) (-2-2) Blood Gas Oxygen Saturation 95 % (90-100) 95 % (90-100) Arterial Blood pH 7.41 7.40 (7.380-7.420) (7.380-7.420) Arterial Blood Partial 33 mmHg (38-42) 41 mmHg (38-42) Pressure CO2 Arterial Blood Partial 105 mmHg 100 mmHg Pressure O2 (61-120) (61-120) Arterial Blood Oxygen Content 10.7 Vol % 12.5 Vol % (12.0-20.0) (12.0-20.0) Arterial Blood 0.9 % (0-4) 1.0 % (0-4) Carboxyhemoglobin Arterial Blood Methemoglobin 1.7 % (0-2) 1.7 % (0-2) Blood Gas Hemoglobin 7.8 G/DL 9.2 G/DL (12.0-16.0) (12.0-16.0) Oxygen Delivery Device VENTILATOR VENTILATOR Blood Gas Ventilator Setting 700/20/PEEP 12 PRVC/AC Blood Gas Inspired Oxygen 70 % 60 % Imaging Last Impressions Chest X-Ray 03/03/17 1526 Signed Impressions: Service Date/Time: February 15:31 - CONCLUSION: 1. Right IJ line distal tip is in the SVC. No pneumothorax is present. 2. Diffuse bilateral airspace consolidation remains present. Kirby Harris MD Renal Ultrasound 03/03/17 0000 Signed Impressions: Service Date/Time: February 08:23 - CONCLUSION: 1. Status post right nephrectomy. 2. Redemonstration of 2.4 x 2.0 x 1.9 cm cyst in the inferior pole the left kidney. 3. No renal calculi or obstructive uropathy. Jem Fletcher MD Head CT 02/28/17 0000 Signed Impressions: Service Date/Time: Tuesday, February 28, 2017 15:48 - CONCLUSION: 1. 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 No acute intracranial abnormality is identified. Cortes Lopez MD CT Angiography 02/28/17 0000 Signed Impressions: Service Date/Time: Tuesday, February 28, 2017 16:01 - CONCLUSION: 1. No pulmonary embolus identified. 2. 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 3. Diffuse interstitial fibrotic change with extensive opacification of the right upper lobe. Cortes Lopez MD Objective Remarks GENERAL: 76-year-old female, critically ill currently orotracheally intubated SKIN: Warm and dry HEAD: Status post meghan hole left frontal. Well-healed. EYES: Pupils equal and round about 4 mm bilaterally and reactive to 3 mm. No scleral icterus. No injection or drainage. ENT: No nasal bleeding or discharge. Mucous membranes dry. Orotracheally intubated NECK: Trachea midline. No JVD. CARDIOVASCULAR: Regular rate and rhythm. S1, S2 no S4. Without murmur RESPIRATORY: Fine crackles appreciated throughout right and left anterior and posterior lung oliver. Positive end expiratory wheezes GASTROINTESTINAL: Abdomen soft, non-tender, obese. Hypoactive bowel sounds are appreciated MUSCULOSKELETAL: Extremities with trace to 1+ lower extremity edema. No obvious deformities. NEUROLOGICAL: Currently on Nimbex drip and paralyzed. Pupils reactive as above. [id number] 1 out of 4. Procedures None Date of Insertion: Mar 03, 2017 Line: Central Venous Catheter Side: Right Location: Internal, Jugular A/P Assessment and Plan Neuro/Psych: Peripheral neuropathy Chronic codeine use Status post left frontal meghan hole/biopsy December/2016 Patient is currently on propofol at at 10 mcg/kg/m/fentanyl drips 25 mg an hour for sedation/analgesia while intubated, Nimbex drip Start Versed infusion increased propofol and fentanyl, and wean to DC Nimbex infusion Hold Neurontin 300 mg by mouth twice a day for neuropathy No sedation vacation due to underlying tenuous pulmonary status Again, patient was awake and following commands post code 03/03 so TTM not indicated for V. tach arrest CT head 03/11 revealed status post left frontal meghan hole. No acute intracranial findings specifically no intracranial masses CV: Status post respiratory arrest leading to cardiac arrest NSTEMI/Elevated troponin Lactic acidosis History of hypertension Dyslipidemia Right bundle-branch block Evaluated by Dr. Aceves/cardiology 02/28. 2-D echocardiogram. EF 65-70%. No regional wall motion abnormality. Mild TR. 2-D echocardiograms postcode revealed EF 35-40%. Moderate to severe hypokinesis. Hold Pravachol 80 mg by mouth daily for dyslipidemia in light of elevated transaminases. On simvastatin 80 mg by mouth daily at home. Currently on sterile water with 3 ampules of sodium bicarbonate 150 cc an hour Currently on Danyel-Synephrine 150 g per min and vasopressin 0.04 units per minute Serial lactates until clear. Noted in shock liver therefore lactates will be slow to clear Originally on amiodarone which has been discontinued due to elevated liver function tests Not a candidate for cardiac catheter PCI Place on ASA 81 mg daily Resp: Type I respiratory failure likely secondary to diffusion abnormality/pneumonia Acute hypoxemic respiratory failure Severe ARDS History of lung cancer status post left upper lobe lobectomy COPD oxygen dependent Prior tobaccoism History of pulmonary embolism Currently on PRVC /1.10/24/69 On Flolan 8 mg/hr - (50) Duo nebs every 4 hours with albuterol every 2 hours when necessary breakthrough Pulmicort 0.5/2 1 inhalation twice a day Continue Solu-Medrol 40 mg IV every 3 hours Pulmonology/Dr. Jennings On Brovana 15 g inhalation twice a day at home for COPD maintenance CTA chest 02/28 revealed right upper lobe opacification/fibrotic disease, 2.3 x 2.0 centimeter left hilar lymph node. Negative VQ mismatch with no signs of pulmonary embolism on CTA chest. Noted on echocardiogram possible large pleural effusion. No effusion seen on CTA 02/28. GI: Elevated transaminases likely shock liver Hypoalbuminemia Currently nothing by mouth with OG tube to low intermittent wall suction AST 16,235. Her ALT greater than 5000. Elevated alkaline phosphatase. Avoid hepatotoxic medication Protonix for GI prophylaxis Gretel-Colace for bowel regimen Ammonia level 75 Place on lactulose 30 mL every 6 hours : Bella catheter for accurate I's and O's in a critically ill patient Endo: Sliding-scale insulin with Accu-Cheks to maintain euglycemia/low regimen Renal: Acute kidney injury History of right nephrectomy Anuria 12 hours Creatinine currently 3.3, almost anuric. Monitor urine output Accurate I's and O's Renal ultrasound revealed status post right nephrectomy. 2.42.0 x1.9 cm left renal cyst inferior pole. Negative urine eosinophils. Hemodialysis catheter placed by , but later on nephrology consult was canceled as she is not a candidate for hemodialysis Heme: Anemia/normocytic Chronic Xarelto use with history of pulmonary embolism Coagulopathy secondary to shock liver Home medication Xarelto 20 by mouth daily currently on hold Not requiring transfusion of blood products at this time Monitor CBC daily and coags ID: E faecalis UTI Initially treated with ciprofloxacin, vancomycin and aztreonam. Currently on Levaquin, Flagyl and vancomycin Noted ESR 140. CRP 35 Pertinent cultures 03/02 - blood cultures 2 - no growth 03/02 - urine strep/Legionella pending 02/28 - urine - E faecalis 02/27 - blood cultures 2 - no growth Influenza negative FEN: Hyperphosphatemia Hyperkalemia Replace electrolytes as clinically indicated Will start PhosLo 667 mg tid Consider starting Nepro trickle feeds today MSK Osteoporosis Obesity BMI greater than 30 Continue Os-Henok 500 mg by mouth daily Continue vitamin B-12 and multivitamin daily Access -Right IJ CVL placed 03/03 day #3 Left femoral arterial line placed 03/03 day #3 Prophylaxis - GI - Protonix - DVT - SCD/Xarelto on hold. 35 minutes critical care time excluding procedures: Dr Correa discussed with son Kirby and son in [place] 03/04. Patient is a DNR now. Patient expressed wishes for no tracheostomy prior to intubation but short-term intubation in full CODE STATUS in the interim. Sons aware that patient in multisystem organ failure including renal failure, shock liver, elevated troponin, respiratory failure with very poor prognostication. They will be arriving on Tuesday and will consider possible withdrawal of care and comfort measures Patient is critically ill requiring adjustment of ventilator and NM blockage, sedation Magda Orr MD Mar 05, 2017 11:26
[2017-03-05] MEDS ORDERED: ASPIRIN 81 MG CHEW TAB CHEW SCH (11:30)
--- NOTE | 2017-03-05 16:36 | HHI.IDPN ---
Subjective Subjective Remarks The patient is a 76-year-old female who presented to the emergency department with complaint of generalized weakness. She states that she went to the bathroom yesterday, but was not able to get up off the toilet because she felt so weak. Her [id number] helped her up and called paramedics. The patient has COPD and reports chronic dyspnea, but no worse recently. She has cough that is minimally productive. She had fever overnight with night sweats, but feels much better this morning. She denies chest pain. She had an episode of nausea yesterday, but that has resolved. No diarrhea or constipation. She denies dysuria. She reportedly has had multiple hospital admissions and ER visits in the past few months. She reports having extensive workup in December including a brain biopsy. Those records are not available at this time. Notes reviewed D/W RN Sedated on the vent, on nimbex as well Now on pressors Temps ok Family looking at withdrawal Tuesday when family members arrive Min UO Nothing new on C/S Vascath placed LIJ TLC RIJ, A line L groin Not a lot of ET secretions - color clear Antibiotics Levaquin Vancomycin Flagyl Lines RIJ TLC LIJ vascath Past Medical History History breast cancer History of renal cancer History of lung cancer Hyperlipidemia COPD History of DVT, ?PE Past Surgical History Partial lobectomy of the left lung Right nephrectomy Hysterectomy Appendectomy Tonsillectomy Bilateral breast surgery for cancer in the 1970s Allergies: Coded Allergies: Penicillin (Verified Allergy, Severe, Hives, 03/03/17) Has taken Keflex without any problem Objective . Vital Signs Date Time Temp Pulse Resp B/P Pulse Ox O2 Delivery O2 Flow Rate FiO2 03/05/17 13:47 93 50 03/05/17 11:19 93 50 03/05/17 10:28 96 60 03/05/17 07:55 96 60 03/05/17 06:00 98 03/05/17 06:00 96 16 122/85 96 03/05/17 05:00 94 15 122/84 97 03/05/17 04:43 92 15 116/76 97 114/80 03/05/17 04:09 97 60 03/05/17 04:00 90 15 118/82 97 03/05/17 04:00 92 03/05/17 04:00 70 03/05/17 03:00 90 21 106/74 96 03/05/17 02:34 90 15 96/63 95 98/68 03/05/17 02:00 90 03/05/17 02:00 92 15 94/64 95 03/05/17 01:54 95 60 03/05/17 01:00 98 15 98/70 95 03/05/17 00:07 98 15 100/73 96 100/70 03/05/17 00:00 70 03/05/17 00:00 97.7 100 16 104/72 98 03/05/17 00:00 99 03/04/17 23:00 98 15 120/84 94 03/04/17 22:03 95 60 03/04/17 22:00 104 15 140/92 95 03/04/17 22:00 113 03/04/17 21:00 102 15 120/82 94 03/04/17 20:00 99.0 108 17 144/94 95 03/04/17 20:00 97 03/04/17 20:00 70 03/04/17 19:33 108 16 139/93 95 144/94 03/04/17 19:15 96 60 03/04/17 19:00 104 19 136/90 97 03/04/17 18:15 98.2 105 20 128/85 96 03/04/17 18:10 98.3 106 20 131/87 96 03/04/17 18:00 98.7 104 20 120/78 96 03/04/17 18:00 104 03/04/17 17:02 98.9 108 20 124/84 96 03/04/17 03/04/17 03/05/17 15:00 23:00 07:00 Intake Total 2208 ml 272 ml Output Total 95 ml 20 ml Balance 2113 ml 252 ml Intake Oral 0 ml IV Total 2208 ml 272 ml Output Urine Total 95 ml 20 ml # Bowel Movements 0 . Laboratory Tests Test 03/04/17 03/04/17 03/04/17 03/05/17 05:26 15:00 17:35 00:00 White Blood Count 10.2 TH/MM3 4.4 TH/MM3 Red Blood Count 3.14 MIL/MM3 2.64 MIL/MM3 Hemoglobin 9.3 GM/DL 8.0 GM/DL 7.8 GM/DL 8.6 GM/DL Hematocrit 27.7 % 23.5 % Mean Corpuscular Volume 88.2 FL 89.1 FL Mean Corpuscular Hemoglobin 29.5 PG 30.4 PG Mean Corpuscular Hemoglobin 33.4 % 34.2 % Concent Red Cell Distribution Width 15.6 % 15.7 % Platelet Count 186 TH/MM3 117 TH/MM3 Mean Platelet Volume 7.3 FL 7.3 FL Neutrophils (%) (Auto) 91.6 % 87.8 % Lymphocytes (%) (Auto) 6.5 % 8.6 % Monocytes (%) (Auto) 1.6 % 3.3 % Eosinophils (%) (Auto) 0.2 % 0.2 % Basophils (%) (Auto) 0.1 % 0.1 % Neutrophils # (Auto) 9.3 TH/MM3 3.9 TH/MM3 Lymphocytes # (Auto) 0.7 TH/MM3 0.4 TH/MM3 Monocytes # (Auto) 0.2 TH/MM3 0.1 TH/MM3 Eosinophils # (Auto) 0.0 TH/MM3 0.0 TH/MM3 Basophils # (Auto) 0.0 TH/MM3 0.0 TH/MM3 CBC Comment DIFF FINAL AUTO DIFF Differential Comment AUTO DIFF CONFIRMED Platelet Estimate LOW Platelet Morphology Comment NORMAL Test 03/05/17 05:00 White Blood Count 5.0 TH/MM3 Red Blood Count 3.05 MIL/MM3 Hemoglobin 8.9 GM/DL Hematocrit 26.2 % Mean Corpuscular Volume 85.9 FL Mean Corpuscular Hemoglobin 29.4 PG Mean Corpuscular Hemoglobin 34.2 % Concent Red Cell Distribution Width 15.8 % Platelet Count 107 TH/MM3 Mean Platelet Volume 7.3 FL Neutrophils (%) (Auto) 89.5 % Lymphocytes (%) (Auto) 7.7 % Monocytes (%) (Auto) 2.1 % Eosinophils (%) (Auto) 0.1 % Basophils (%) (Auto) 0.6 % Neutrophils # (Auto) 4.5 TH/MM3 Lymphocytes # (Auto) 0.4 TH/MM3 Monocytes # (Auto) 0.1 TH/MM3 Eosinophils # (Auto) 0.0 TH/MM3 Basophils # (Auto) 0.0 TH/MM3 CBC Comment AUTO DIFF Differential Total Cells 100 Counted Neutrophils % (Manual) 78 % Band Neutrophils % 17 % Lymphocytes % 4 % Monocytes % 1 % Neutrophils # (Manual) 4.8 TH/MM3 Differential Comment FINAL DIFF MANUAL Platelet Estimate LOW Platelet Morphology Comment NORMAL Laboratory Tests Test 03/03/17 03/03/17 03/04/17 03/04/17 18:46 21:02 02:22 05:26 Lactic Acid Level 7.0 mmol/L 8.4 mmol/L 8.1 mmol/L 8.5 mmol/L Troponin I 3.96 NG/ML 13.10 NG/ML 16.10 NG/ML Sodium Level 138 MEQ/L Potassium Level 5.2 MEQ/L Chloride Level 102 MEQ/L Carbon Dioxide Level 17.2 MEQ/L Anion Gap 19 MEQ/L Blood Urea Nitrogen 40 MG/DL Creatinine 2.40 MG/DL Estimat Glomerular Filtration 20 ML/MIN Rate Random Glucose 244 MG/DL Calcium Level 6.5 MG/DL Protein Corrected Calcium 7.5 MG/DL Phosphorus Level 8.1 MG/DL Magnesium Level 2.1 MG/DL Total Bilirubin 1.4 MG/DL Aspartate Amino Transf 74601 U/L (AST/SGOT) Alanine Aminotransferase 5054 U/L (ALT/SGPT) Alkaline Phosphatase 301 U/L Total Creatine Kinase 788 U/L Creatine Kinase MB 31.6 NG/ML Creatine Kinase MB % 4.0 % Total Protein 5.1 GM/DL Albumin 2.1 GM/DL Test 03/04/17 03/04/17 03/05/17 03/05/17 10:10 15:00 00:00 05:00 Potassium Level 4.5 MEQ/L 4.2 MEQ/L 4.1 MEQ/L Lactic Acid Level 8.8 mmol/L 7.4 mmol/L 3.8 mmol/L 2.9 mmol/L Troponin I 25.50 NG/ML 27.90 NG/ML 32.30 NG/ML Sodium Level 140 MEQ/L 139 MEQ/L Chloride Level 99 MEQ/L 97 MEQ/L Carbon Dioxide Level 24.7 MEQ/L 28.0 MEQ/L Anion Gap 16 MEQ/L 14 MEQ/L Blood Urea Nitrogen 51 MG/DL 68 MG/DL Creatinine 2.70 MG/DL 3.30 MG/DL Estimat Glomerular Filtration 17 ML/MIN 14 ML/MIN Rate Random Glucose 236 MG/DL 220 MG/DL Calcium Level 6.4 MG/DL 5.6 MG/DL Protein Corrected Calcium 7.6 MG/DL 6.6 MG/DL Phosphorus Level 6.9 MG/DL 7.3 MG/DL Magnesium Level 2.2 MG/DL 2.1 MG/DL Total Creatine Kinase 1083 U/L 1515 U/L Creatine Kinase MB 43.2 NG/ML 63.9 NG/ML Creatine Kinase MB % 4.0 % 4.2 % Total Protein 4.7 GM/DL 4.7 GM/DL Amylase Level 106 U/L Total Bilirubin 1.6 MG/DL Aspartate Amino Transf 54453 U/L (AST/SGOT) Alanine Aminotransferase 4822 U/L (ALT/SGPT) Alkaline Phosphatase 377 U/L Ammonia 75 MCMOL/L Albumin 2.0 GM/DL Lipase 910 U/L Thyroid Stimulating Hormone 0.880 uIU/ML 3rd Gen Test 03/05/17 15:40 Lactic Acid Level 2.2 mmol/L Microbiology Date/Time Procedure Status Source Growth 03/02/17 21:40 Aerobic Blood Culture - Preliminary Resulted Blood Peripheral NO GROWTH IN 3 DAYS 03/02/17 21:40 Anaerobic Blood Culture - Preliminary Resulted Blood Peripheral NO GROWTH IN 3 DAYS 03/02/17 21:45 Legionella Antigen - Final Complete Urine Catheterized Urine PRESUMPTIVE NEGATIVE FOR LEGIONELLA P... 03/02/17 21:45 Streptococcus pneumoniae Antigen (M - Final Complete Urine Clean Catch PRESUMPTIVE NEGATIVE FOR STREPTOCOCCU... 03/02/17 21:49 Aerobic Blood Culture - Preliminary Resulted Blood Peripheral NO GROWTH IN 3 DAYS 03/02/17 21:49 Anaerobic Blood Culture - Preliminary Resulted Blood Peripheral NO GROWTH IN 3 DAYS Imaging Chest X-Ray 03/05/17 0600 Signed Impressions: Service Date/Time: Sunday, March 05, 2017 06:20 - CONCLUSION: 1. Bilateral airspace disease appears unchanged. 2. Support lines and tubes are unchanged. David Jones MD Chest X-Ray 03/04/17 0809 Signed Impressions: Service Date/Time: Saturday, March 04, 2017 08:35 - CONCLUSION: 1. Left IJ Vas-Cath tip at the confluence of the SVC and brachiocephalic. No pneumothorax. 2. Cardiomegaly with pulmonary vascular congestion. 3. Stable diffuse patchy bilateral airspace disease. Jem Fletcher MD Chest X-Ray 03/04/17 0000 Signed Impressions: Service Date/Time: Saturday, March 04, 2017 13:59 - CONCLUSION: 1. Support apparatus unchanged. Bilateral basal air space disease similar to earlier examination. Aurelio Aceves MD Abdomen X-Ray 03/04/17 0000 Signed Impressions: Service Date/Time: Saturday, March 04, 2017 08:35 - CONCLUSION: 1. Nasogastric tube tip projects over the mid stomach. Aurelio Aceves MD Chest X-Ray 03/04/17 0809 Signed Impressions: Service Date/Time: Saturday, March 04, 2017 08:35 - CONCLUSION: 1. Left IJ Vas-Cath tip at the confluence of the SVC and brachiocephalic. No pneumothorax. 2. Cardiomegaly with pulmonary vascular congestion. 3. Stable diffuse patchy bilateral airspace disease. Jem Fletcher MD Abdomen X-Ray 03/04/17 0000 Signed Impressions: Service Date/Time: Saturday, March 04, 2017 08:35 - CONCLUSION: 1. Nasogastric tube tip projects over the mid stomach. Aurelio Aceves MD Chest X-Ray 03/03/17 1526 Signed Impressions: Service Date/Time: February 15:31 - CONCLUSION: 1. Right IJ line distal tip is in the SVC. No pneumothorax is present. 2. Diffuse bilateral airspace consolidation remains present. Kirby Harris MD Chest X-Ray 03/03/17 0600 Signed Impressions: Service Date/Time: February 05:48 - CONCLUSION: Right greater than left airspace disease. Left consolidation is slightly worse in the interim. Kirby Chadwick MD Renal Ultrasound 03/03/17 0000 Signed Impressions: Service Date/Time: February 08:23 - CONCLUSION: 1. Status post right nephrectomy. 2. Redemonstration of 2.4 x 2.0 x 1.9 cm cyst in the inferior pole the left kidney. 3. No renal calculi or obstructive uropathy. Jem Fletcher MD Chest X-Ray 03/03/17 0000 Signed Impressions: Service Date/Time: February 13:58 - CONCLUSION: 1. Endotracheal tube and nasogastric tube in satisfactory position. 2. Underlying pulmonary fibrosis with new bilateral airspace disease that has worsened over the last 2 days. Differential diagnosis includes edema and infection. Aurelio Aceves MD Chest X-Ray 03/03/17 0600 Signed Impressions: Service Date/Time: February 05:48 - CONCLUSION: Right greater than left airspace disease. Left consolidation is slightly worse in the interim. Kirby Chadwick MD Renal Ultrasound 03/03/17 0000 Signed Impressions: Service Date/Time: , March 03, 2017 08:23 - CONCLUSION: 1. Status post right nephrectomy. 2. Redemonstration of 2.4 x 2.0 x 1.9 cm cyst in the inferior pole the left kidney. 3. No renal calculi or obstructive uropathy. Jem Fletcher MD Head CT 02/28/17 0000 Signed Impressions: Service Date/Time: Tuesday, February 28, 2017 15:48 - CONCLUSION: 1. 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 No acute intracranial abnormality is identified. Cortes Lopez MD CT Angiography 02/28/17 0000 Signed Impressions: Service Date/Time: Tuesday, February 28, 2017 16:01 - CONCLUSION: 1. No pulmonary embolus identified. 2. 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 3. Diffuse interstitial fibrotic change with extensive opacification of the right upper lobe. Cortes Lopez MD Physical Exam GENERAL: Obese CF, sedated on the vent. SKIN: Cool and dry. No rash HEAD: Atraumatic. Normocephalic. No temporal or scalp tenderness. EYES: Pupils equal round and reactive. No scleral icterus. No injection or drainage. ENT: Nose without bleeding, purulent drainage. Orally intubated. NECK: Lines in place, no evidence of infection CARDIOVASCULAR: Regular rate and rhythm without murmurs, gallops, or rubs. RESPIRATORY: Decreased breath sounds throughout both lung oliver GASTROINTESTINAL: Abdomen soft, nondistended, no reaction to deep palpation. She has a scar in her right abdomen with an incisional hernia that is reducible. MUSCULOSKELETAL: Mild pedal edema, cool feet with mottling. NEUROLOGICAL: Sedated PSYCH: Unable to assess : Bella in place, with some sediment in tubing. LINE: NO evidence of infection Assessment & Plan Remarks IMPRESSION Sepsis, with fevers, temps better - has Enterococcal UTI; no hydro on L kidney; previous R nephrectomy - has SOB, has COPD and fibrosis, not C/O much of cough or congestion, ? inflammatory vs infection - BC have been negative Respiratory failure - has underlying O2 dependent COPD, PF on CT, ?PNA + CHF S/P arrest, ?NC - has MOSF post arrest Known COPD Hx multiple CA - breast CA, R kidney and L lung Allergy to PCN, tolerates Cephalosporins RECOMMENDATION Continue Vancomycin Continue Levaquin Prognosis poor, has MOSF Withdrawal possibly Tuesday when family members arrive D/W Larissa Aldrich MD Mar 05, 2017 16:36
[2017-03-05] MEDS: PROPOFOL 1000 MG/100 ML INJ 100 ML IV SCH (19:16)
[2017-03-05] MEDS: CHLORHEXIDINE 0.12% (ORAL KIT) 15 ML CUP MT SCH (20:00)
[2017-03-05] MEDS: DOCUSATE SODIUM 50 MG/SENNA 8.6 MG TAB PO SCH (21:00)
[2017-03-05] MEDS: SODIUM CHLORIDE 0.9% FLUSH 10 ML FLUSH IV FLUSH SCH (21:00)
[2017-03-05] MEDS: ARTIFICIAL TEARS OPTH OINT 3.5 APPLIC/3.5 GM TUBO EACH EYE SCH (21:00)
[2017-03-05] MEDS: SODIUM BICARBONATE 8.4% INJ 150 MEQ in WATER STERILE FOR INJ 850 ML IV SCH (23:20)
[2017-03-06] VITALS (37 sets, daily range): BP systolic 112–140; BP diastolic 74–92; PULSE 56–98; RESP 12–23; TEMP 98.1–98.7; O2SAT 93–98
[2017-03-06] MEDS: INSULIN NovoLIN REGULAR SUPPLEMENTAL SCALE SQ SCH ×2 (00:14→05:04)
[2017-03-06] MEDS: metroNIDAZOLE 500 MG INJ 100 ML IV SCH (00:15)
[2017-03-06] MEDS: EPOPROSTENOL NEB SOLUTION 50 NG/KG/MIN 100 ML NEB SCH ×4 (00:16→03:18)
[2017-03-06] MEDS: PROPOFOL 1000 MG/100 ML INJ 100 ML IV SCH ×2 (03:18→12:27)
[2017-03-06 03:52] LABS: C PNEUMO IGM <1:10 (())
[2017-03-06] MEDS: RESP: ALBUTEROL 2.5 MG/IPRATROPIUM 0.5 MG NEB (SCH) NEB ×2 (04:09→07:48)
--- NOTE | 2017-03-06 06:45 | HHI.CCPN ---
Subjective Remarks/Hospital Course 76-year-old female. Date of admission 02/27/2017. Date of consultation 03/03/2017. Past medical history includes underlying emphysema, COPD oxygen dependent, history of pulmonary wasn't on chronic Xarelto, hypertension, dyslipidemia, peripheral neuropathy, history of left upper lobe lobectomy, bilateral mastectomy for breast cancer in her right nephrectomy for kidney cancer. In December, patient had a left frontal meghan hole/skull biopsy. Patient originally presented to [facility] ED after status post fall at home patient difficulty getting up. Daughter activated EMS. She was noted of a UTI and started on antibiotics. She's been seen by Dr. Strickland for abnormal EKG. Troponin 0.02. Recommend echocardiogram. These results are currently pending. A volumetric Presley/infectious disease. Her urine did grow out enterococcus faecalis which she is currently on following a bicycle Levaquin, Azactam, Flagyl and vancomycin.. Also seen in consultation by Dr. Jennings DVT abnormal CTA's 02/28 which revealed right upper lobe opacification/fibrosis, 2.3 x 2 cm left perihilar lymph node in hepatic cyst. Recommend aggressive pulmonary including duo nebs 4 times a day, Pulmicort twice a day and Solu-Medrol 40 IV every 8 hours on BiPAP management. Due to increasing oxygen requirements, we are asked to evaluate the patient. Patient is currently a full code. Subjective 03/04: Intubated at 1:30 yesterday afternoon. Wide complex tachycardia/V. tach reported by Dr. Whitlock/ED physician post intubation requiring CPR around 5 minutes with 2 mg epinephrine, chest compressions and 20 J the ER and reported as cardioversion however was likely defibrillation. Regardless, post code patient was awake and following commands therefore targeted temperature management was not instituted. Noted to have elevated troponin, shock liver and no urine output overnight. Oxygen requirements decreased from 100% to 70% this AM. Discuss with both sons this a.m. including Kirby here in [place] and son in [place] 03/05: Remains very critical, FiO2 60% PEEP of 12. Remains on Nimbex for neuromuscular paralysis for ventilator synchrony due to severe hypoxia. Propofol and fentanyl infusion ongoing. Acute kidney failure with oliguria/ anuria. Hardly making any urine 03/06: Remains extremely critical, severely hypoxic from ARDS now with multiorgan failure. Remains on vasopressin and Danyel-Synephrine to maintain map. Acute renal failure with essentially no urine output. Chemistry pending at this time Objective Vital Signs Date Time Temp Pulse Resp B/P Pulse Ox O2 Delivery O2 Flow Rate FiO2 03/06/17 06:30 96 16 114/78 96 03/06/17 05:00 70 03/06/17 04:00 98.7 03/03/17 12:00 Bi-Pap 03/03/17 07:50 15.00 Intake and Output 03/05/17 03/05/17 03/06/17 08:00 16:00 00:00 Intake Total 272 ml 400 ml 431 ml Output Total 20 ml 5 ml 125 ml Balance 252 ml 395 ml 306 ml Result Diagram: 03/05/17 0500 03/05/17 0500 Imaging Last Impressions Chest X-Ray 03/03/17 1526 Signed Impressions: Service Date/Time: February 15:31 - CONCLUSION: 1. Right IJ line distal tip is in the SVC. No pneumothorax is present. 2. Diffuse bilateral airspace consolidation remains present. Kirby Harris MD Renal Ultrasound 03/03/17 0000 Signed Impressions: Service Date/Time: February 08:23 - CONCLUSION: 1. Status post right nephrectomy. 2. Redemonstration of 2.4 x 2.0 x 1.9 cm cyst in the inferior pole the left kidney. 3. No renal calculi or obstructive uropathy. Jem Fletcher MD Head CT 02/28/17 0000 Signed Impressions: Service Date/Time: Tuesday, February 28, 2017 15:48 - CONCLUSION: 1. 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 No acute intracranial abnormality is identified. Cortes Lopez MD CT Angiography 02/28/17 0000 Signed Impressions: Service Date/Time: Tuesday, February 28, 2017 16:01 - CONCLUSION: 1. No pulmonary embolus identified. 2. 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 3. Diffuse interstitial fibrotic change with extensive opacification of the right upper lobe. Cortes Lopez MD Objective Remarks Vasopressin Danyel-Synephrine Nimbex turned off since 2 PM on 03/05 17 GENERAL: 76-year-old female, critically ill currently orotracheally intubated SKIN: Warm and dry HEAD: Status post meghan hole left frontal. Well-healed. EYES: Pupils equal and round about 4 mm bilaterally and reactive to 3 mm. No scleral icterus. No injection or drainage. ENT: No nasal bleeding or discharge. Mucous membranes dry. Orotracheally intubated NECK: Trachea midline. No JVD. CARDIOVASCULAR: Regular rate and rhythm. S1, S2 no S4. Without murmur. Remains on 2 pressors RESPIRATORY: Fine crackles appreciated throughout right and left anterior and posterior lung oliver. Positive end expiratory wheezes GASTROINTESTINAL: Abdomen soft, non-tender, obese. Hypoactive bowel sounds are appreciated MUSCULOSKELETAL: Extremities with trace to 1+ lower extremity edema. No obvious deformities. NEUROLOGICAL: Currently very heavily sedated for ventilator synchrony, this limits neuro exam. Pupils reactive as above. Procedures None Date of Insertion: Mar 03, 2017 Line: Central Venous Catheter Side: Right Location: Internal, Jugular A/P Assessment and Plan Neuro/Psych: Peripheral neuropathy Chronic codeine use Status post left frontal meghan hole/biopsy December/2016 Patient is currently on propofol and Fentanyl, Nimbex drip turned off at 1400 on 03/05/17 Versed infusion if needed Hold Neurontin 300 mg by mouth twice a day for neuropathy No sedation vacation due to severe ARDS Patient was awake and following commands post code 03/03 so induced hypothermia was not indicated for V. tach arrest CT head revealed status post left frontal meghan hole. No acute intracranial findings specifically no intracranial masses CV: Status post respiratory arrest leading to cardiac arrest Shock, septic and cardiogenic NSTEMI/Elevated troponin Lactic acidosis History of hypertension Dyslipidemia Right bundle-branch block Evaluated by Dr. Aceves/cardiology 02/28. 2-D echocardiogram. EF 65-70%. No regional wall motion abnormality. Mild TR. 2-D echocardiograms postcode revealed EF 35-40%. Moderate to severe hypokinesis. Hold Pravachol 80 mg by mouth daily for dyslipidemia in light of elevated transaminases. On simvastatin 80 mg by mouth daily at home. Currently on Danyel-Synephrine 40 g per min and vasopressin 0.04 units per minute Serial lactates until clear. Noted in shock liver therefore lactates will be slow to clear Originally on amiodarone which has been discontinued due to elevated liver function tests Not a candidate for cardiac catheterization or PCI ASA 81 mg daily Resp: Type I respiratory failure likely secondary to diffusion abnormality/pneumonia Acute hypoxemic respiratory failure Severe ARDS History of lung cancer status post left upper lobe lobectomy COPD oxygen dependent Prior tobaccoism History of pulmonary embolism [place] PRVC 18600/1.10/24/69 On Flolan 8 mg/hr - (50) Duo nebs every 4 hours with albuterol every 2 hours when necessary breakthrough Pulmicort 0.5/2 1 inhalation twice a day Solu-Medrol 40 mg IV every 3 hours Pulmonology/Dr. Jennings On Brovana 15 g inhalation twice a day at home for COPD maintenance CTA chest 02/28 revealed right upper lobe opacification/fibrotic disease, 2.3 x 2.0 centimeter left hilar lymph node. Negative VQ mismatch with no signs of pulmonary embolism on CTA chest. Noted on echocardiogram possible large pleural effusion. No effusion seen on CTA 02/28. Unable to do a spontaneous breathing trials due to severe hypoxemia GI: Elevated transaminases likely shock liver Hypoalbuminemia Currently nothing by mouth with OG tube to low intermittent wall suction AST 16,235. Her ALT greater than 5000. Elevated alkaline phosphatase. Protonix for GI prophylaxis Gretel-Colace for bowel regimen Ammonia level 75 Lactulose 30 mL every 6 hours Endo: Sliding-scale insulin with Accu-Cheks to maintain euglycemia/low regimen Renal: Acute kidney injury History of right nephrectomy Anuria 12 hours Bella catheter for accurate I's and O's in a critically ill patient Creatinine today pending, anuric. Renal ultrasound revealed status post right nephrectomy. 2.42.0 x1.9 cm left renal cyst inferior pole. Negative urine eosinophils. Hemodialysis catheter placed by , but later on nephrology consult was canceled as she is not a candidate for hemodialysis Heme: Anemia/normocytic Chronic Xarelto use with history of pulmonary embolism Coagulopathy secondary to shock liver Home medication Xarelto 20 by mouth daily currently on hold Not requiring transfusion of blood products at this time Monitor CBC daily and coags ID: E faecalis UTI on 02/28 Initially treated with ciprofloxacin, vancomycin and aztreonam. Currently on Levaquin, Flagyl and vancomycin Noted ESR 140. CRP 35 Pertinent cultures 03/02 - blood cultures 2 - no growth 03/02 - urine strep/Legionella neg 02/28 - urine - E faecalis 02/27 - blood cultures 2 - no growth Influenza negative FEN: Hyperphosphatemia Hyperkalemia Replace electrolytes as clinically indicated PhosLo 667 mg tid MSK Osteoporosis Obesity BMI greater than 30 Continue Os-Henok 500 mg by mouth daily Continue vitamin B-12 and multivitamin daily Access -Right IJ CVL placed 03/03 day #4 Left femoral arterial line placed 03/03 day #4 Prophylaxis - GI - Protonix - DVT - SCD/Xarelto on hold. 35 minutes critical care time excluding procedures: Dr Correa discussed with son Kirby and son in [place] 03/04. Patient is a DNR now. Patient expressed wishes for no tracheostomy prior to intubation but short-term intubation in full CODE STATUS in the interim. Sons aware that patient in multisystem organ failure including renal failure, shock liver, elevated troponin, respiratory failure with very poor prognostication. They will be arriving on Tuesday and will consider possible withdrawal of care and comfort measures Patient remains critically ill with multiorgan failure and with no hope of recovery. Family is aware of the condition and most likely planning to withdrawal life support and transition to comfort measures either today or tomorrow Magda Orr MD Mar 06, 2017 06:45 Magda Orr MD Mar 06, 2017 06:45
[2017-03-06] MEDS: RESP: BUDESONIDE 0.25 MG/2 ML NEB NEB SCH (07:48)
[2017-03-06] MEDS: fentaNYL DRIP 250 ML IV SCH (07:52)
[2017-03-06] MEDS: methylPREDNISolone SOD SUCC 40 MG/1 ML VIAL IV PUSH SCH (07:52)
[2017-03-06] MEDS: VASOPRESSIN INJ 40 UNITS in DEXTROSE 5% IN WATER 100ML INJ 98 ML IV SCH ×2 (07:53)
[2017-03-06 07:57] LABS: BICARBONATE 24.1 MEQ/L (21.0-32.0); POTASSIUM 5.1 MEQ/L (3.5-5.1); TOTAL BILIRUBIN ADULT 2.2 MG/DL (0.2-1.0)
[2017-03-06 08:01] LABS: CALCIUM-PROTEIN CORRECTED 6.8 MG/DL (8.5-10.1)
[2017-03-06] MEDS ORDERED: MORPHINE SULFATE 8 MG/ML INJ IV PUSH ONE (10:45)
[2017-03-06] MEDS ORDERED: LORazepam 2 MG/ML VIAL IV ONE ×2 (10:45→11:00)
[2017-03-06] MEDS ORDERED: MORPHINE SULFATE 4 MG/ML INJ IV ONE (11:00)
[2017-03-06] MEDS: SODIUM CHLORIDE 0.9% FLUSH 10 ML FLUSH IVF SCH (11:06)
[2017-03-06] MEDS ORDERED: MORPHINE SULFATE 8 MG/ML INJ IV PUSH PRN (11:15)
[2017-03-06] MEDS ORDERED: MORPHINE SULFATE 4 MG/ML INJ IV PRN (11:15)
[2017-03-06] MEDS ORDERED: ACETAMINOPHEN 650 MG SUPP RECTAL PRN (11:15)
[2017-03-06] MEDS ORDERED: FUROSEMIDE 20 MG/2 ML VIAL IV PRN (11:15)
[2017-03-06] MEDS ORDERED: LORazepam 2 MG/ML VIAL IV PRN ×2 (11:15)
[2017-03-06] MEDS ORDERED: HYOSCYAMINE 0.5 MG/ML AMP IV PRN (11:15)
[2017-03-06] MEDS ORDERED: LORazepam 2 MG/ML VIAL IV SCH (12:00)
[2017-03-06] MEDS ORDERED: MORPHINE SULFATE 4 MG/ML INJ IV SCH (12:00)
--- NOTE | 2017-03-06 13:57 | DEATH SUM ---
Summary Demographics Date Pronounced : Mar 06, 2017 Time Of : 1110 Pronounced By: MIRELA JONES RN AND SARAI TELLEZ RN Preliminary Cause of : Multi Organ Failure Magda Orr MD Mar 06, 2017 13:57
--- NOTE | 2017-03-06 14:00 | HHI.DS ---
Summary Note Date of : Mar 06, 2017 Time Of : 1110 Admission Date Feb 28, 2017 at 08:01 Admitting Diagnosis Generalized weakness Diagnosis at Time of : (1) Acute hypoxemic respiratory failure ICD Code: J96.01 Diagnosis: Principal (2) Septic shock ICD Code: A41.9 Diagnosis: Principal (3) Sepsis with multi-organ dysfunction ICD Code: A41.9 Diagnosis: Principal (4) ARDS (adult respiratory distress syndrome) ICD Code: J80 Diagnosis: Principal (5) Acute kidney failure ICD Code: N17.9 Diagnosis: Principal (6) NSTEMI (non-ST elevated myocardial infarction) ICD Code: I21.4 Diagnosis: Principal (7) Dehydration ICD Code: E86.0 Diagnosis: Principal (8) Fever ICD Code: R50.9 Diagnosis: Principal (9) Lactic acidosis ICD Code: E87.2 Diagnosis: Principal (10) UTI (urinary tract infection) ICD Code: N39.0 Diagnosis: Principal (11) Abnormal EKG ICD Code: R94.31 Diagnosis: Secondary (12) COPD (chronic obstructive pulmonary disease) ICD Code: J44.9 Diagnosis: Secondary (13) Hyperlipidemia ICD Code: E78.5 Diagnosis: Secondary Procedures None Brief History The patient is a 76-year-old female who presented to the emergency department with complaint of generalized weakness. She states that she went to the bathroom yesterday, but was not able to get up off the toilet because she felt so weak. Her [id number] helped her up and called paramedics. The patient has COPD and reports chronic dyspnea, but no worse recently. She has cough that is minimally productive. She had fever overnight with night sweats, but feels much better this morning. She denies chest pain. She had an episode of nausea yesterday, but that has resolved. No diarrhea or constipation. She denies dysuria. She reportedly has had multiple hospital admissions and ER visits in the past few months. She reports having extensive workup in December including a brain biopsy. Those records are not available at this time. CBC/BMP: 03/05/17 0500 03/06/17 0710 Significant Findings Laboratory Tests Test 03/03/17 03/03/17 03/03/17 03/03/17 14:00 15:07 15:10 15:30 Blood Gas HCO3 16 mmol/L 18 mmol/L (22-26) (22-26) Blood Gas Base Excess -11.5 mmol/L -8.0 mmol/L (-2-2) (-2-2) Blood Gas Oxygen Saturation 65 % (90-100) 86 % (90-100) Arterial Blood pH 7.11 7.24 (7.380-7.420) (7.380-7.420) Arterial Blood Partial 54 mmHg (38-42) 44 mmHg (38-42) Pressure CO2 Arterial Blood Partial 47 mmHg Pressure O2 (61-120) Arterial Blood Oxygen Content 9.4 Vol % (12.0-20.0) Blood Gas Hemoglobin 10.2 G/DL 11.1 G/DL (12.0-16.0) (12.0-16.0) White Blood Count 13.5 TH/MM3 (4.0-11.0) Red Blood Count 3.52 MIL/MM3 (4.00-5.30) Hemoglobin 10.4 GM/DL (11.6-15.3) Hematocrit 31.1 % (35.0-46.0) Mean Platelet Volume 6.7 FL (7.0-11.0) Neutrophils (%) (Auto) 93.0 % (16.0-70.0) Lymphocytes (%) (Auto) 5.6 % (9.0-44.0) Neutrophils # (Auto) 12.5 TH/MM3 (1.8-7.7) Lymphocytes # (Auto) 0.8 TH/MM3 (1.0-4.8) Prothrombin Time 16.6 SEC (9.8-11.6) Activated Partial 34.5 SEC Thromboplast Time (24.3-30.1) Fibrinogen GREATER THAN 860 mg/dL (227-377) Chloride Level 112 MEQ/L (98-107) Carbon Dioxide Level 18.8 MEQ/L (21.0-32.0) Blood Urea Nitrogen 26 MG/DL (7-18) Creatinine 1.10 MG/DL (0.50-1.00) Estimat Glomerular Filtration 48 ML/MIN (>89) Rate Random Glucose 268 MG/DL (74-106) Lactic Acid Level 4.1 mmol/L (0.4-2.0) Calcium Level 7.8 MG/DL (8.5-10.1) Aspartate Amino Transf 255 U/L (15-37) (AST/SGOT) Alanine Aminotransferase 101 U/L (10-53) (ALT/SGPT) Alkaline Phosphatase 301 U/L (45-117) Ammonia 110 MCMOL/L (11-32) Troponin I 0.66 NG/ML (0.02-0.05) Total Protein 5.5 GM/DL (6.4-8.2) Albumin 1.5 GM/DL (3.4-5.0) Test 03/03/17 03/03/17 03/03/17 03/04/17 17:02 18:46 21:02 02:22 Blood Gas HCO3 14 mmol/L (22-26) Blood Gas Base Excess -11.5 mmol/L (-2-2) Arterial Blood pH 7.26 (7.380-7.420) Arterial Blood Partial 33 mmHg (38-42) Pressure CO2 Blood Gas Hemoglobin 10.8 G/DL (12.0-16.0) Lactic Acid Level 7.0 mmol/L 8.4 mmol/L 8.1 mmol/L (0.4-2.0) (0.4-2.0) (0.4-2.0) Troponin I 3.96 NG/ML 13.10 NG/ML (0.02-0.05) (0.02-0.05) Test 03/04/17 03/04/17 03/04/17 03/04/17 05:26 05:50 07:45 10:10 Red Blood Count 3.14 MIL/MM3 (4.00-5.30) Hemoglobin 9.3 GM/DL (11.6-15.3) Hematocrit 27.7 % (35.0-46.0) Neutrophils (%) (Auto) 91.6 % (16.0-70.0) Lymphocytes (%) (Auto) 6.5 % (9.0-44.0) Neutrophils # (Auto) 9.3 TH/MM3 (1.8-7.7) Lymphocytes # (Auto) 0.7 TH/MM3 (1.0-4.8) Potassium Level 5.2 MEQ/L (3.5-5.1) Carbon Dioxide Level 17.2 MEQ/L (21.0-32.0) Anion Gap 19 MEQ/L (5-15) Blood Urea Nitrogen 40 MG/DL (7-18) Creatinine 2.40 MG/DL (0.50-1.00) Estimat Glomerular Filtration 20 ML/MIN (>89) Rate Random Glucose 244 MG/DL (74-106) Lactic Acid Level 8.5 mmol/L 8.8 mmol/L (0.4-2.0) (0.4-2.0) Calcium Level 6.5 MG/DL (8.5-10.1) Protein Corrected Calcium 7.5 MG/DL (8.5-10.1) Phosphorus Level 8.1 MG/DL (2.5-4.9) Total Bilirubin 1.4 MG/DL (0.2-1.0) Aspartate Amino Transf 00175 U/L (AST/SGOT) (15-37) Alanine Aminotransferase 5054 U/L (ALT/SGPT) (10-53) Alkaline Phosphatase 301 U/L (45-117) Total Creatine Kinase 788 U/L (26-192) Creatine Kinase MB 31.6 NG/ML (0.5-3.6) Troponin I 16.10 NG/ML 25.50 NG/ML (0.02-0.05) (0.02-0.05) Total Protein 5.1 GM/DL (6.4-8.2) Albumin 2.1 GM/DL (3.4-5.0) Blood Gas HCO3 15 mmol/L (22-26) Blood Gas Base Excess -11.8 mmol/L (-2-2) Arterial Blood pH 7.21 (7.380-7.420) Arterial Blood Partial 181 mmHg Pressure O2 (61-120) Blood Gas Hemoglobin 9.2 G/DL (12.0-16.0) Prothrombin Time 27.1 SEC (9.8-11.6) Activated Partial 38.1 SEC Thromboplast Time (24.3-30.1) Test 03/04/17 03/04/17 03/05/17 03/05/17 15:00 17:35 00:00 05:00 Red Blood Count 2.64 MIL/MM3 3.05 MIL/MM3 (4.00-5.30) (4.00-5.30) Hemoglobin 8.0 GM/DL 7.8 GM/DL 8.6 GM/DL 8.9 GM/DL (11.6-15.3) (11.6-15.3) (11.6-15.3) (11.6-15.3) Hematocrit 23.5 % 26.2 % (35.0-46.0) (35.0-46.0) Platelet Count 117 TH/MM3 107 TH/MM3 (150-450) (150-450) Neutrophils (%) (Auto) 87.8 % 89.5 % (16.0-70.0) (16.0-70.0) Lymphocytes (%) (Auto) 8.6 % 7.7 % (9.0-44.0) (9.0-44.0) Lymphocytes # (Auto) 0.4 TH/MM3 0.4 TH/MM3 (1.0-4.8) (1.0-4.8) Platelet Estimate LOW (NORMAL) LOW (NORMAL) Blood Gas HCO3 20 mmol/L (22-26) Blood Gas Base Excess -3.7 mmol/L (-2-2) Arterial Blood Partial 33 mmHg (38-42) Pressure CO2 Arterial Blood Oxygen Content 10.7 Vol % (12.0-20.0) Blood Gas Hemoglobin 7.8 G/DL (12.0-16.0) Anion Gap 16 MEQ/L (5-15) Blood Urea Nitrogen 51 MG/DL (7-18) 68 MG/DL (7-18) Creatinine 2.70 MG/DL 3.30 MG/DL (0.50-1.00) (0.50-1.00) Estimat Glomerular Filtration 17 ML/MIN (>89) 14 ML/MIN (>89) Rate Random Glucose 236 MG/DL 220 MG/DL (74-106) (74-106) Lactic Acid Level 7.4 mmol/L 3.8 mmol/L 2.9 mmol/L (0.4-2.0) (0.4-2.0) (0.4-2.0) Calcium Level 6.4 MG/DL 5.6 MG/DL (8.5-10.1) (8.5-10.1) Protein Corrected Calcium 7.6 MG/DL 6.6 MG/DL (8.5-10.1) (8.5-10.1) Phosphorus Level 6.9 MG/DL 7.3 MG/DL (2.5-4.9) (2.5-4.9) Total Creatine Kinase 1083 U/L 1515 U/L (26-192) (26-192) Creatine Kinase MB 43.2 NG/ML 63.9 NG/ML (0.5-3.6) (0.5-3.6) Total Protein 4.7 GM/DL 4.7 GM/DL (6.4-8.2) (6.4-8.2) Troponin I 27.90 NG/ML 32.30 NG/ML (0.02-0.05) (0.02-0.05) Neutrophils % (Manual) 78 % (16-70) Band Neutrophils % 17 % (0-6) Lymphocytes % 4 % (9-44) Prothrombin Time 23.0 SEC (9.8-11.6) Activated Partial 36.2 SEC Thromboplast Time (24.3-30.1) Fibrinogen 445 mg/dL (227-377) Chloride Level 97 MEQ/L (98-107) Total Bilirubin 1.6 MG/DL (0.2-1.0) Aspartate Amino Transf 41378 U/L (AST/SGOT) (15-37) Alanine Aminotransferase 4822 U/L (ALT/SGPT) (10-53) Alkaline Phosphatase 377 U/L (45-117) Ammonia 75 MCMOL/L (11-32) Creatine Kinase MB % 4.2 % (0.0-4.0) Albumin 2.0 GM/DL (3.4-5.0) Lipase 910 U/L (73-393) Vancomycin Level Trough 24.6 MCG/ML (5.0-10.0) Test 03/05/17 03/05/17 03/06/17 06:00 15:40 07:10 Blood Gas Hemoglobin 9.2 G/DL (12.0-16.0) Lactic Acid Level 2.2 mmol/L (0.4-2.0) Chloride Level 96 MEQ/L (98-107) Anion Gap 16 MEQ/L (5-15) Blood Urea Nitrogen 98 MG/DL (7-18) Creatinine 4.50 MG/DL (0.50-1.00) Estimat Glomerular Filtration 9 ML/MIN (>89) Rate Random Glucose 226 MG/DL (74-106) Calcium Level 5.9 MG/DL (8.5-10.1) Protein Corrected Calcium 6.8 MG/DL (8.5-10.1) Total Bilirubin 2.2 MG/DL (0.2-1.0) Aspartate Amino Transf 3977 U/L (AST/SGOT) (15-37) Alanine Aminotransferase 3714 U/L (ALT/SGPT) (10-53) Alkaline Phosphatase 479 U/L (45-117) Total Protein 5.0 GM/DL (6.4-8.2) Albumin 2.2 GM/DL (3.4-5.0) Imaging Last Impressions Chest X-Ray 03/03/17 1526 Signed Impressions: Service Date/Time: February 15:31 - CONCLUSION: 1. Right IJ line distal tip is in the SVC. No pneumothorax is present. 2. Diffuse bilateral airspace consolidation remains present. Kirby Harris MD Renal Ultrasound 03/03/17 0000 Signed Impressions: Service Date/Time: February 08:23 - CONCLUSION: 1. Status post right nephrectomy. 2. Redemonstration of 2.4 x 2.0 x 1.9 cm cyst in the inferior pole the left kidney. 3. No renal calculi or obstructive uropathy. Jem Fletcher MD Head CT 02/28/17 0000 Signed Impressions: Service Date/Time: Tuesday, February 28, 2017 15:48 - CONCLUSION: 1. 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 No acute intracranial abnormality is identified. Cortes Lopez MD CT Angiography 02/28/17 0000 Signed Impressions: Service Date/Time: Tuesday, February 28, 2017 16:01 - CONCLUSION: 1. No pulmonary embolus identified. 2. 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 3. Diffuse interstitial fibrotic change with extensive opacification of the right upper lobe. Cortes Lopez MD Hospital Course 76-year-old female. Past medical history includes underlying emphysema , COPD oxygen dependent, history of pulmonary embolism on chronic Xarelto, hypertension, dyslipidemia, peripheral neuropathy, history of left upper lobe lobectomy for lung ca, bilateral mastectomy for breast cancer in her right nephrectomy for kidney cancer. In December, patient had a left frontal meghan hole/ skull biopsy. Patient originally presented to [facility] ED after status post fall at home patient difficulty getting up. Daughter activated EMS. She was noted of a UTI and started on antibiotics. She's been seen by Dr. Aceves cardiology for abnormal EKG. Troponin 0.02. Recommend echocardiogram. Sepsis consulted Dr. Sherwood/infectious disease. Her urine did grow out enterococcus faecalis which she is currently on following a bicycle Levaquin, Azactam, Flagyl and vancomycin.. Also seen in consultation by Dr. Jennings re abnormal CTA's 02/28 which revealed right upper lobe opacification/fibrosis, 2.3 x 2 cm left perihilar lymph node in hepatic cyst. Recommended aggressive pulmonary including duo nebs 4 times a day, Pulmicort twice a day and Solu-Medrol 40 IV every 8 hours on BiPAP management. Due to increasing oxygen requirements, we are asked to evaluate the patient. 03/04: Intubated at 1:30 yesterday afternoon. Wide complex tachycardia/V. tach reported by Dr. Whitlock/ED physician post intubation requiring CPR around 5 minutes with 2 mg epinephrine, chest compressions and 20 J the ER and reported as cardioversion however was likely defibrillation. Regardless, post code patient was awake and following commands therefore targeted temperature management was not instituted. Noted to have elevated troponin, shock liver and no urine output overnight. Oxygen requirements decreased from 100% to 70% this AM. Discuss with both sons this a.m. including Kirby here in [place] and son in [place] 03/05: Remains very critical, FiO2 60% PEEP of 12. Remains on Nimbex for neuromuscular paralysis for ventilator synchrony due to severe hypoxia. Propofol and fentanyl infusion ongoing. Acute kidney failure with oliguria/ anuria. Hardly making any urine 03/06: Remains extremely critical, severely hypoxic from ARDS now with multiorgan failure. Remains on vasopressin and Danyel-Synephrine to maintain map. Acute renal failure with essentially no urine output. Family arrived at the bedside and requested withdrawal of active life support and comfort measures. Vent withdrawal orders were done. After comfort medications were given including IV morphine and IV Ativan, patient was removed from the life-support and/or medications were stopped. She comfortably at 1110 on 03/06/17 Magda Orr MD Mar 06, 2017 14:00 Magda Orr MD Mar 06, 2017 14:00
== END 2017-03-06 13:20 | disposition expired | DRG 871 ==
LOC: PHEDDLT 22:12 → PH3B 02-27 00:48 → OBSVTOIN 02-28 08:01 → PHICU 02-28 11:27
PROVIDERS: ADMIT Internal Medicine Critical Care Medicine; ATTEND Internal Medicine Critical Care Medicine
PROC: 5A2204Z Restoration of Cardiac Rhythm, Single (ICD-10-PCS; principal; 2017-03-03)
PROC: 04HY32Z Insertion of Monitoring Device into Lower Artery, Percutaneous Approach (ICD-10-PCS; 2017-03-03)
PROC: 5A1945Z Respiratory Ventilation, 24-96 Consecutive Hours (ICD-10-PCS; 2017-03-03)
PROC: 02HV33Z Insertion of Infusion Device into Superior Vena Cava, Percutaneous Approach (ICD-10-PCS; 2017-03-03)
PROC: B543ZZA Ultrasonography of Right Jugular Veins, Guidance (ICD-10-PCS; 2017-03-03)
PROC: 0BH17EZ Insertion of Endotracheal Airway into Trachea, Via Natural or Artificial Opening (ICD-10-PCS; 2017-03-03)
PROC: 5A12012 Performance of Cardiac Output, Single, Manual (ICD-10-PCS; 2017-03-03)
PROC: 02HV33Z Insertion of Infusion Device into Superior Vena Cava, Percutaneous Approach (ICD-10-PCS; 2017-03-04)
PROC: B544ZZA Ultrasonography of Left Jugular Veins, Guidance (ICD-10-PCS; 2017-03-04)
DX: A41.51 Sepsis due to Escherichia coli [E. coli] (principal); J18.9 Pneumonia, unspecified organism; Z51.5 Encounter for palliative care; J96.01 Acute respiratory failure with hypoxia; I21.4 Non-ST elevation (NSTEMI) myocardial infarction; K72.00 Acute and subacute hepatic failure without coma; R65.21 Severe sepsis with septic shock; D68.4 Acquired coagulation factor deficiency; I47.2 Ventricular tachycardia; J44.0 Chronic obstructive pulmonary disease with (acute) lower respiratory infection; K92.2 Gastrointestinal hemorrhage, unspecified; N17.9 Acute kidney failure, unspecified; E87.2 Acidosis; N39.0 Urinary tract infection, site not specified; J44.1 Chronic obstructive pulmonary disease with (acute) exacerbation; I11.0 Hypertensive heart disease with heart failure; I50.9 Heart failure, unspecified; J84.10 Pulmonary fibrosis, unspecified; E86.0 Dehydration; E78.5 Hyperlipidemia, unspecified; R62.7 Adult failure to thrive; E66.9 Obesity, unspecified; G62.9 Polyneuropathy, unspecified; E53.8 Deficiency of other specified B group vitamins; E88.09 Other disorders of plasma-protein metabolism, not elsewhere classified; I49.01 Ventricular fibrillation; I45.10 Unspecified right bundle-branch block; R32 Unspecified urinary incontinence; R15.9 Full incontinence of feces; N28.1 Cyst of kidney, acquired; E87.5 Hyperkalemia; E83.39 Other disorders of phosphorus metabolism; D50.0 Iron deficiency anemia secondary to blood loss (chronic); M19.90 Unspecified osteoarthritis, unspecified site; M81.0 Age-related osteoporosis without current pathological fracture; M54.9 Dorsalgia, unspecified; F41.9 Anxiety disorder, unspecified; G89.29 Other chronic pain; Z66 Do not resuscitate; Z68.35 Body mass index [BMI] 35.0-35.9, adult; Z79.01 Long term (current) use of anticoagulants; Z85.118 Personal history of other malignant neoplasm of bronchus and lung; Z85.3 Personal history of malignant neoplasm of breast; Z85.528 Personal history of other malignant neoplasm of kidney; Z86.711 Personal history of pulmonary embolism; Z86.718 Personal history of other venous thrombosis and embolism; Z87.891 Personal history of nicotine dependence; Z88.0 Allergy status to penicillin; Z90.13 Acquired absence of bilateral breasts and nipples; Z90.2 Acquired absence of lung [part of]; Z90.5 Acquired absence of kidney; Z92.21 Personal history of antineoplastic chemotherapy; Z99.81 Dependence on supplemental oxygen
CPT/HCPCS: 31500; 36430; 36556; 36600; 70450; 71010; 71275; 74000; 74176; 76775; 76937; 80048; 80053; 80202; 81001; 82140; 82150; 82550; 82552; 82570; 82805; 82948; 83605; 83690; 83735; 83880; 84100; 84132; 84155; 84300; 84443; 84484; 85007; 85018; 85025; 85027; 85379; 85384; 85610; 85652; 85730; 86140; 86631; 86632; 86738; 86850; 86900; 86901; 86920; 86927; 87040; 87077; 87086; 87186; 87205; 87449; 87641; 87804; 93005; 93306; 93308; 94002; 94003; 94640; 94664; 94799; C9113; G8987-GP; G8988-GP; J0282; J0610; J0744; J1325; J1644; J1940; J1956; J2250; J2270; J2370; J2920; J3010; J3370; J3430; J3480; J7030; J7040; J7050; J7060; J7613; J7626; P9016; P9017; P9040; P9047; Q9967